=== PATIENT | male | born 1945 | race Two or more races ===

== ENCOUNTER 2022-06-13 18:54 | Inpatient (IN) | payer OTHER ==
[~2022-06-13] VITALS: Ht 167.6 cm; Wt 86.6 kg
--- NOTE | 2022-06-13 19:15 | NUR ---
TO ER BED 11. BIB NEIGHBOR C/O HIGH BLOOD PRESSURE 180's, NUMBNESS BLE, BLURRY VISION AND FELL TWICE TODAY. PT IS ALERT AND ORIENTED. RR EVEN AND NON LABORED. NO EXTREMITY DEFICITS NOTED. CONNECTED TO POX AND HEART MONITOR.
--- NOTE | 2022-06-13 19:31 | NUR ---
URINE COLLECTED AND SENT TO LAB
--- NOTE | 2022-06-13 20:15 | NUR ---
IV LINE ESTABLISHED, [id number]
--- NOTE | 2022-06-13 20:20 | NUR ---
BLOOD COLLECTED AND SENT TO LAB
[2022-06-13] MEDS ORDERED: hydrALAZINE HCL IV 20 MG VIAL ONE (20:28)
[2022-06-13] MEDS ORDERED: hydrALAZINE HCL IV 20 MG VIAL IV ONE (20:30)
[2022-06-13 20:49] LABS: CALCIUM, SERUM 8.5 mg/dL (8.5-10.1); CARBON DIOXIDE 23 mmol/L (21-32); CHLORIDE 112 mmol/L (98-107); CREATININE 4.6 mg/dL (0.6-1.3); GLUCOSE 135 mg/dL (74-106); SODIUM SERUM 138 mmol/L (136-145); UREA NITROGEN, BLOOD 44 mg/dL (7-18)
[2022-06-13 20:51] LABS: BASOPHILS # (AUTO) 0.3 K/uL (0.0-0.2); BASOPHILS % (AUTO) 3.2 % (0.0-2.0); EOSINOPHILS % (AUTO) 12.2 % (0.0-6.0); HEMATOCRIT 38 % (39-51); HEMOGLOBIN 12.4 g/dL (13.5-17.5); LYMPHOCYTES # (AUTO) 0.9 K/uL (0.8-4.8); LYMPHOCYTES % (AUTO) 9.5 % (20.0-44.0); MEAN CORPUSCULAR HGB CONC 32 g/dl (31.0-36.0); MEAN CORPUSCULAR VOLUME 91 fL (80-96); MONOCYTES # (AUTO) 0.8 K/uL (0.1-1.30); MONOCYTES % (AUTO) 8.5 % (2.0-12.0); NEUTROPHILS % (AUTO) 66.6 % (43.0-81.0); PLATELET COUNT (AUTO) 238 K/uL (150-450); RED BLOOD CELL COUNT(AUTO) 4.24 MIL/uL (4.5-6.0); WHITE BLOOD COUNT (AUTO) 9.1 K/uL (4.3-11.0)
[2022-06-13 21:09] LABS: POTASSIUM 6.2 mmol/L (3.5-5.1)
--- NOTE | 2022-06-13 21:20 | NUR ---
ELLIE Guerrier (DAUGHTER) [phone]
--- NOTE | 2022-06-13 22:19 | NUR ---
COVID SWAB DONE AND SENT TO LAB
[2022-06-13] MEDS ORDERED: FUROSEMIDE 20 MG/2 ML VIAL ONE (22:59)
[2022-06-13] MEDS ORDERED: SODIUM BICARBONATE SYR 50 MEQ/50 ML DISP.SYRIN IV ONE (23:00)
[2022-06-13] MEDS ORDERED: IV NS 0.9% 1,000 ML IV ONE (23:00)
[2022-06-13] MEDS ORDERED: CALCIUM CHLORIDE 1,000 MG/10 ML DISP.SYRIN IV ONE (23:00)
[2022-06-13] MEDS ORDERED: FUROSEMIDE 40 MG/4 ML VIAL IV ONE (23:00)
[2022-06-13] MEDS ORDERED: ALBUTEROL FS 2.5 MG/3 ML VIAL.NEB NEB ONE (23:00)
[2022-06-14] MEDS ORDERED: IV 1/2NS 1000 ML 1,000 ML IV PRN (01:30)
[2022-06-14] MEDS ORDERED: DEXTROSE 50%-WATER 50 ML DISP.SYRIN IV PRN (01:30)
[2022-06-14] MEDS ORDERED: ONDANSETRON HCL/PF 4 MG/2 ML VIAL IVP PRN (01:30)
[2022-06-14] MEDS ORDERED: ZOLPIDEM TARTRATE 5 MG TABLET PO PRN (01:30)
[2022-06-14] MEDS ORDERED: MAG HYDROX/AL HYDROX/SIMETH 30 ML UDC PO PRN (01:30)
[2022-06-14] MEDS ORDERED: Z GUARD REMEDY 4 OZ OINT TP PRN (01:30)
[2022-06-14] MEDS ORDERED: MAGNESIUM HYDROXIDE 30 ML UDC PO PRN (01:30)
--- NOTE | 2022-06-14 02:10 | NUR ---
PATIENT TRANSFERRED TO [facility]
--- NOTE | 2022-06-14 02:20 | NUR ---
RN NOTE RECEIVED 76 Y/O M PATIENT FROM ER, PT TRANSFERRED VIA ALENA, A/ORTEGA ITALIAN SPEAKING, ON RA TOLERATING WELL, IV ACCESS AT RAC #20. PT DX HYPERTENSIVE CRISIS, ADMISSION CARE RENDERED, SKIN ASSESSMENT DONE NO ISSUES NOTED, SAFETY MEASURES IN PLACED, BED IN LOWEST AND LOCKED POSITION, BED ALARM ON, CALL LIGHT WITHIN REACH AND INSTRUCTED TO CALL FOR ASSISTANCE, WILL CONTINUE TO MONITOR THROUGHOUT THE SHIFT.
[2022-06-14] MEDS: hydrALAZINE HCL IV 20 MG VIAL IV PRN ×3 (02:49→21:52)
[2022-06-14 04:00] VITALS: BP 159/70
--- NOTE | 2022-06-14 07:00 | NUR ---
RN CLOSING NOTE PATIENT REMAINS IN BED, A/OX4 DIVEHI SPEAKING, ON O2 VIA NC AT 2LPM TOLERATING WELL SATING 97%, NOT IN ANY S/SX OF RESPIRATORY DISTRESS, NO COMPLAINTS OF PAIN AT THIS TIME, IV ACCESS AT RAC #20 RUNNING 1/2 NS AT 90 ML/HR, KEPT PT DRY AND CLEAN, SAFETY MEASURES IN PLACED, BED IN LOWEST AND LOCKED POSITION, BED ALARM ON, CALL LIGHT WITHIN REACH AND INSTRUCTED TO CALL FOR ASSISTANCE, WILL ENDORSE TO AM SHIFT NURSE FOR CONTINUITY OF CARE.
[2022-06-14 07:19] LABS: CALCIUM, SERUM 8.9 mg/dL (8.5-10.1); CARBON DIOXIDE 20 mmol/L (21-32); CHLORIDE 113 mmol/L (98-107); CREATININE 4.5 mg/dL (0.6-1.3); GLUCOSE 135 mg/dL (74-106); POTASSIUM 4.9 mmol/L (3.5-5.1); SODIUM SERUM 141 mmol/L (136-145); UREA NITROGEN, BLOOD 41 mg/dL (7-18)
[2022-06-14] MEDS: BLOOD SUGAR DIAGNOSTIC 1 EACH STRIP VI SCH ×4 (07:40→21:48)
--- NOTE | 2022-06-14 07:50 | NUR ---
RN OPENING NOTE PATIENT REMAINS IN BED, A/OX4 BULGARIAN SPEAKING, ON O2 VIA NC AT 2LPM TOLERATING WELL SATING 98%, PT ON TELE MONITOR. NOT IN ANY S/SX OF RESPIRATORY DISTRESS, IV ACCESS AT RAC #20 RUNNING 1/2 NS AT 90 ML/HR,IV INTACT, PATENT AND FLUSHING WELL. ALL SAFETY MEASURES IN PLACED, BED IN LOWEST AND LOCKED POSITION, BED ALARM ON, CALL LIGHT WITHIN REACH AND BEDSIDE TABLE NEXT TO PATIENT
[2022-06-14 08:00] VITALS: BP 149/77
[2022-06-14 08:25] LABS: BASOPHILS # (AUTO) 0.1 K/uL (0.0-0.2); BASOPHILS % (AUTO) 0.8 % (0.0-2.0); EOSINOPHILS % (AUTO) 3.9 % (0.0-6.0); HEMATOCRIT 36 % (39-51); HEMOGLOBIN 11.8 g/dL (13.5-17.5); LYMPHOCYTES # (AUTO) 1.4 K/uL (0.8-4.8); LYMPHOCYTES % (AUTO) 15.3 % (20.0-44.0); MEAN CORPUSCULAR HGB CONC 32 g/dl (31.0-36.0); MEAN CORPUSCULAR VOLUME 91 fL (80-96); MONOCYTES % (AUTO) 10.3 % (2.0-12.0); NEUTROPHILS # (AUTO) 6.5 K/uL (1.8-8.9); NEUTROPHILS % (AUTO) 69.7 % (43.0-81.0); PLATELET COUNT (AUTO) 236 K/uL (150-450); RED BLOOD CELL COUNT(AUTO) 3.99 MIL/uL (4.5-6.0); WHITE BLOOD COUNT (AUTO) 9.3 K/uL (4.3-11.0)
[2022-06-14] MEDS ORDERED: GLIP5TAB13 PO (08:28)
[2022-06-14] MEDS ORDERED: MELO-107 PO (08:28)
[2022-06-14] MEDS ORDERED: FURO20TA4 PO (08:28)
[2022-06-14] MEDS ORDERED: ATOR10TA PO (08:28)
[2022-06-14] MEDS ORDERED: TAMS-12 PO (08:28)
[2022-06-14] MEDS ORDERED: METO-358 PO (08:28)
[2022-06-14] MEDS ORDERED: TIMO5DRO18 EACHEYE (08:28)
[2022-06-14] MEDS ORDERED: BRIM5DRO3 EACHEYE (08:28)
[2022-06-14] MEDS: ACETAMINOPHEN 325 MG TABLET PO PRN (11:51)
[2022-06-14] MEDS: INSULIN REGULAR, HUMAN 100 UNIT/ML 3 ML VIAL SQ PRN ×2 (11:59→17:15)
[2022-06-14 12:00] VITALS: BP 167/83
[2022-06-14 12:18] LABS: THYROID STIMULATING HORMONE 7.386 uIU/mL (0.358-3.74)
[2022-06-14 16:00] VITALS: BP 158/72
[2022-06-14] MEDS: TIMOLOL 0.5% SOLN OPHTH 5 ML BOTTLE EACHEYE SCH (16:29)
--- NOTE | 2022-06-14 19:20 | NUR ---
RN NOTE Received patient in bed, on semi alberto's, AAO x 4, in no acute distress, welsh speaking, family at bedside. Breathing unlabored, saturation at 96% on 2L via NC, SR on the monitor, HR is 82. IV line at LFA 20g patent and flushing well, no s/s of infection or infiltration with 1/2 NS infusing at 90 ml/hr. Patient is continent and able to use urinal. Safety measures in place, bed is locked and at lowest position, HOB elevated, call light within reach of patient. Will cont to monitor
--- NOTE | 2022-06-14 19:22 | NUR ---
RN CLOSING NOTE PATIENT REMAINS IN BED, A/OX4 KYRGYZ SPEAKING, ON O2 VIA NC AT 2LPM TOLERATING WELL SATING 98%, PT ON TELE MONITOR. NOT IN ANY S/SX OF RESPIRATORY DISTRESS,NO PAIN OR DISCOMFORT NOTED AT THIS TIME. IV ACCESS AT LEFT FOREARM #20 RUNNING 1/2 NS AT 90 ML/HR,IV INTACT, PATENT AND FLUSHING WELL. ALL SAFETY MEASURES IN PLACED, BED IN LOWEST AND LOCKED POSITION, BED ALARM ON, CALL LIGHT WITHIN REACH AND BEDSIDE TABLE NEXT TO PATIENT. ENDORSED TO CHURN DRILLER HELPER RN FOR CONUTIY OF CARE
[2022-06-14 21:30] VITALS: BP 180/72
[2022-06-14] MEDS: TAMSULOSIN 0.4 MG CAP.SR.24H PO SCH (21:42)
[2022-06-14] MEDS ORDERED: ATORVASTATIN 10 MG TABLET PO SCH (22:00)
[2022-06-14 22:17] LABS: BILIRUBIN,URINE NEGATIVE (NEGATIVE); COLOR,URINE YELLOW (YELLOW); LEUKOCYTE ESTERASE ,URINE NEGATIVE (NEGATIVE); NITRITE, URINE NEGATIVE (NEGATIVE); PROTEIN,URINE 3+ mg/dl (NEGATIVE); UGLUCOSE 2+ mg/dL (NEGATIVE); UROBILINOGEN,URINE 0.2 EU/dL (0.2)
[2022-06-14 22:19] LABS: BACTERIA,URINE None seen /HPF (None Seen); WBC,URINE 0-2 /HPF (0-3)
[2022-06-14 22:20] LABS: MUCUS,URINE Few /LPF (None Seen)
[2022-06-14 22:30] VITALS: BP 156/81
[2022-06-15] VITALS (7 sets, daily range): BP systolic 126–174; BP diastolic 60–98
[2022-06-15 05:56] LABS: BASOPHILS % (AUTO) 0.3 % (0.0-2.0); EOSINOPHILS % (AUTO) 5.6 % (0.0-6.0); HEMATOCRIT 34 % (39-51); HEMOGLOBIN 11.2 g/dL (13.5-17.5); LYMPHOCYTES # (AUTO) 2.5 K/uL (0.8-4.8); LYMPHOCYTES % (AUTO) 25.5 % (20.0-44.0); MEAN CORPUSCULAR HGB CONC 33 g/dl (31.0-36.0); MEAN CORPUSCULAR VOLUME 91 fL (80-96); MONOCYTES # (AUTO) 0.8 K/uL (0.1-1.30); MONOCYTES % (AUTO) 8.4 % (2.0-12.0); NEUTROPHILS # (AUTO) 5.9 K/uL (1.8-8.9); NEUTROPHILS % (AUTO) 60.2 % (43.0-81.0); PLATELET COUNT (AUTO) 227 K/uL (150-450); RED BLOOD CELL COUNT(AUTO) 3.73 MIL/uL (4.5-6.0); WHITE BLOOD COUNT (AUTO) 9.8 K/uL (4.3-11.0)
[2022-06-15 06:15] LABS: ALANINE AMINOTRANSFERASE 10 U/L (12-78); ALKALINE PHOSPHATASE 74 U/L (46-116); ASPARTATE AMINOTRANSFERASE 15 U/L (15-37); BILIRUBIN,TOTAL 0.2 mg/dL (0.2-1.0); CALCIUM, SERUM 8.4 mg/dL (8.5-10.1); CARBON DIOXIDE 20 mmol/L (21-32); CHLORIDE 113 mmol/L (98-107); CREATININE 4.3 mg/dL (0.6-1.3); GLUCOSE 126 mg/dL (74-106); PHOSPHORUS 4.2 mg/dL (2.5-4.9); POTASSIUM 4.7 mmol/L (3.5-5.1); SODIUM SERUM 140 mmol/L (136-145); TOTAL PROTEIN, SERUM 4.9 g/dL (6.4-8.2); UREA NITROGEN, BLOOD 42 mg/dL (7-18)
[2022-06-15 06:31] LABS: ALBUMIN 1.4 g/dL (3.4-5.0)
[2022-06-15] MEDS: BLOOD SUGAR DIAGNOSTIC 1 EACH STRIP VI SCH ×4 (07:33→21:37)
--- NOTE | 2022-06-15 07:40 | NUR ---
RN NOTE PT RECEIVED IN BED, RESTING, EYES CLOSED. PT ON 2L O2 NC WITH NO SIGNS OF LABORED BREATHING. BLOOD SUGAR 119 THIS AM, NO COVERAGE NEEDED. LEFT FA 20G IN PLACE RUNNING 1/2 NS AT 90ML/HR. PT A&OX4, PLEASANT, IN AGREEMENT WITH POC. BED LOCKED AND IN LOWEST POSITION, CALL LIGHT WITHIN REACH, 3 SIDE RAILS UP.
[2022-06-15 07:49] LABS: CHOLESTEROL 227 mg/dL (<200); HDL CHOLESTEROL 39 mg/dL (40-60); LDL 153 mg/dL (0-99); TRIGLYCERIDES 140 mg/dL (30-150)
[2022-06-15] MEDS: TIMOLOL 0.5% SOLN OPHTH 5 ML BOTTLE EACHEYE SCH ×2 (08:44→16:21)
[2022-06-15] MEDS ORDERED: METOPROLOL SUCCINATE 50 MG TAB.SR.24H PO SCH (09:00)
[2022-06-15] MEDS: hydrALAZINE HCL 50 MG TABLET PO SCH ×3 (09:42→16:22)
[2022-06-15] MEDS: METOPROLOL SUCCINATE 50 MG TAB.SR.24H PO SCH (09:43)
[2022-06-15] MEDS ORDERED: IV 1/2NS 1000 ML 1,000 ML IV PRN (09:54)
[2022-06-15] MEDS: NITROGLYCERIN 30 GM TUBE TP SCH ×2 (10:22→21:22)
[2022-06-15] MEDS: IV NS 0.9% 1,000 ML IV SCH (10:35)
[2022-06-15] MEDS: ALBUMIN 25% 25 GM in PREMIX 1 EA IV SCH (11:22)
[2022-06-15] MEDS: *INSULIN REGULAR(HUMULIN R)HUM 100 UNIT/ML VIAL SQ PRN (11:35)
[2022-06-15] MEDS: BRIMONIDINE TARTRATE OPHT SOLN 5 ML BOTTLE EACHEYE SCH ×2 (12:29→16:18)
[2022-06-15] MEDS: ISOSORBIDE DINITRATE (20MG) 20 MG TABLET PO SCH ×2 (12:29→16:21)
--- NOTE | 2022-06-15 18:39 | NUR ---
CLOSING NOTE PATIENT REMAINS IN BED, A/OX4 MAORI SPEAKING, ON O2 VIA NC AT 2LPM TOLERATING WELL SATING 98%, PT ON TELE MONITOR. NOT IN ANY S/SX OF RESPIRATORY DISTRESS,NO PAIN OR DISCOMFORT NOTED AT THIS TIME. IV ACCESS AT LEFT FOREARM #20 RUNNING 1/2 NS AT 90 ML/HR,IV INTACT, PATENT AND FLUSHING WELL. ALL SAFETY MEASURES IN PLACED, BED IN LOWEST AND LOCKED POSITION, BED ALARM ON, CALL LIGHT WITHIN REACH
--- NOTE | 2022-06-15 19:15 | NUR ---
RN NOTE Received patient in bed, on semi alberto's, AAO x 4, in no acute distress, latvian speaking, family at bedside. Breathing unlabored, saturation at 98 on 2L via NC, SR on the monitor, HR is 71. IV line at LFA 20g patent and flushing well, no s/s of infection or infiltration with 1/2 NS infusing at 50 ml/hr. Patient is continent and able to use urinal. Safety measures in place, bed is locked and at lowest position, HOB elevated, call light within reach of patient. Will cont to monitor
[2022-06-15] MEDS: TAMSULOSIN 0.4 MG CAP.SR.24H PO SCH (21:23)
[2022-06-15] MEDS: ATORVASTATIN 40 MG TABLET PO SCH (21:23)
[2022-06-15] MEDS ORDERED: ALBUMIN 25% 100 ML IV ONE (23:57)
[2022-06-16] VITALS: BP 117/72
[2022-06-16] MEDS: ALBUMIN 25% 25 GM in PREMIX 1 EA IV SCH ×2
[2022-06-16 04:00] VITALS: BP 150/66
[2022-06-16] MEDS: IV NS 0.9% 1,000 ML IV SCH (06:17)
[2022-06-16 06:38] LABS: BASOPHILS % (AUTO) 0.4 % (0.0-2.0); HEMATOCRIT 30 % (39-51); HEMOGLOBIN 9.7 g/dL (13.5-17.5); LYMPHOCYTES % (AUTO) 20.7 % (20.0-44.0); MEAN CORPUSCULAR HGB CONC 32 g/dl (31.0-36.0); MEAN CORPUSCULAR VOLUME 91 fL (80-96); MONOCYTES # (AUTO) 0.8 K/uL (0.1-1.30); MONOCYTES % (AUTO) 8.5 % (2.0-12.0); NEUTROPHILS # (AUTO) 6.3 K/uL (1.8-8.9); NEUTROPHILS % (AUTO) 66.4 % (43.0-81.0); PLATELET COUNT (AUTO) 195 K/uL (150-450); RED BLOOD CELL COUNT(AUTO) 3.28 MIL/uL (4.5-6.0); WHITE BLOOD COUNT (AUTO) 9.4 K/uL (4.3-11.0)
[2022-06-16 07:00] LABS: ALANINE AMINOTRANSFERASE 7 U/L (12-78); ALBUMIN 2.1 g/dL (3.4-5.0); ALKALINE PHOSPHATASE 63 U/L (46-116); ASPARTATE AMINOTRANSFERASE 16 U/L (15-37); BILIRUBIN,TOTAL 0.3 mg/dL (0.2-1.0); CALCIUM, SERUM 8.3 mg/dL (8.5-10.1); CARBON DIOXIDE 16 mmol/L (21-32); CHLORIDE 113 mmol/L (98-107); CREATININE 4.3 mg/dL (0.6-1.3); GLUCOSE 102 mg/dL (74-106); MAGNESIUM 2.1 mg/dL (1.8-2.4); PHOSPHORUS 3.8 mg/dL (2.5-4.9); POTASSIUM 4.5 mmol/L (3.5-5.1); SODIUM SERUM 138 mmol/L (136-145); TOTAL PROTEIN, SERUM 5.1 g/dL (6.4-8.2); UREA NITROGEN, BLOOD 39 mg/dL (7-18)
[2022-06-16] MEDS: BLOOD SUGAR DIAGNOSTIC 1 EACH STRIP VI SCH ×4 (07:33→22:24)
[2022-06-16 08:00] VITALS: BP 179/75
[2022-06-16] MEDS: METOPROLOL SUCCINATE 50 MG TAB.SR.24H PO SCH (08:47)
[2022-06-16] MEDS: ISOSORBIDE DINITRATE (20MG) 20 MG TABLET PO SCH ×2 (08:47→16:03)
[2022-06-16] MEDS: NITROGLYCERIN 30 GM TUBE TP SCH (08:47)
[2022-06-16] MEDS: hydrALAZINE HCL 50 MG TABLET PO SCH ×3 (08:47→16:04)
[2022-06-16] MEDS: TIMOLOL 0.5% SOLN OPHTH 5 ML BOTTLE EACHEYE SCH ×2 (08:52→16:09)
[2022-06-16] MEDS: BRIMONIDINE TARTRATE OPHT SOLN 5 ML BOTTLE EACHEYE SCH ×3 (08:53→16:09)
[2022-06-16] MEDS: NIFEdipine XL (30MG) 30 MG TAB PO SCH (09:48)
[2022-06-16] MEDS: SODIUM BICARBONATE 650 MG TABLET PO SCH ×2 (11:57→17:12)
[2022-06-16 12:00] VITALS: BP 173/84
[2022-06-16] MEDS: INSULIN REGULAR, HUMAN 100 UNIT/ML 3 ML VIAL SQ PRN (12:02)
[2022-06-16 16:00] VITALS: BP 177/84
[2022-06-16] MEDS: hydrALAZINE HCL IV 20 MG VIAL IV PRN (16:04)
--- NOTE | 2022-06-16 16:15 | NUR ---
RN NOTE BP 177/84 AFTER ALL SCHEDULED BP MEDS WERE GIVEN TODAY. HYDRALAZINE IV PRN GIVEN.
--- NOTE | 2022-06-16 19:23 | NUR ---
RN Opening Notes Received pt sitting on bedside, eating dinner. AOx4, gibraltarian speaking and able to make needs known. On NC 2LPM and tolerating well. No SOB noted. No s/sx of respiratory distress noted. Tele monitor detects sinus rhythm. IV access in SAMEERA midline and LFA #22G running 1/2 NS @ 50 mL/hr. Safety precautions in place: bed in lowest, locked position, siderails upX2, and brakes on. Table and call light within reach. All needs met at this time.
[2022-06-16 20:00] VITALS: BP 168/84
[2022-06-16] MEDS: TAMSULOSIN 0.4 MG CAP.SR.24H PO SCH (22:04)
[2022-06-16] MEDS: ATORVASTATIN 40 MG TABLET PO SCH (22:04)
[2022-06-16] MEDS: ACETAMINOPHEN 325 MG TABLET PO PRN (22:04)
--- NOTE | 2022-06-16 22:04 | NUR ---
RN NOTES Administered tylenol for fever of 100.2.
[2022-06-16] MEDS: *INSULIN REGULAR(HUMULIN R)HUM 100 UNIT/ML VIAL SQ PRN (22:30)
[2022-06-17] VITALS (8 sets, daily range): BP systolic 121–157; BP diastolic 44–86
[2022-06-17] MEDS: SODIUM BICARBONATE 650 MG TABLET PO SCH ×5 (00:16→23:53)
[2022-06-17] MEDS: IV NS 0.9% 1,000 ML IV SCH ×2 (02:35→21:36)
--- NOTE | 2022-06-17 06:59 | NUR ---
RN Closing Notes Pt in bed, asleep, awakens to verbal stimuli. AOx4, romanian speaking and able to make needs known. On NC 2LPM and tolerating well. No SOB noted. No s/sx of respiratory distress noted. Tele monitor detects sinus rhythm. IV access in SAMEERA midline and R hand #22G running 1/2 NS @ 50 mL/hr. All orders carried out. All needs met. Pt kept clean and dry. Safety precautions in place: bed in lowest, locked position, siderails upX2, and brakes on. Table and call light within reach. Will endorse to oncoming shift for MARIA FERNANDA
--- NOTE | 2022-06-17 07:33 | NUR ---
radio television announcer notes Pt in bed, asleep, awakens to verbal stimuli. AOx4, fijian speaking and able to make needs known. On NC 2LPM and tolerating well. No SOB noted. No s/sx of respiratory distress noted. Tele monitor detects sinus rhythm with bbb hr 73 . IV access R hand #22G running 1/2 NS @ 50 mL/hr. . All needs met. Pt kept clean and dry. Safety precautions in place: bed in lowest, locked position, siderails upX2, a call light within reach. will monitor
[2022-06-17] MEDS: hydrALAZINE HCL 50 MG TABLET PO SCH ×3 (08:04→16:28)
[2022-06-17] MEDS: METOPROLOL SUCCINATE 50 MG TAB.SR.24H PO SCH (08:04)
[2022-06-17] MEDS: NIFEdipine XL (30MG) 30 MG TAB PO SCH ×2 (08:04→16:29)
[2022-06-17] MEDS: ISOSORBIDE DINITRATE (20MG) 20 MG TABLET PO SCH ×2 (08:08→16:27)
[2022-06-17] MEDS: BRIMONIDINE TARTRATE OPHT SOLN 5 ML BOTTLE EACHEYE SCH ×3 (08:12→16:25)
[2022-06-17] MEDS: TIMOLOL 0.5% SOLN OPHTH 5 ML BOTTLE EACHEYE SCH ×2 (08:12→16:25)
[2022-06-17] MEDS: ACETAMINOPHEN 325 MG TABLET PO PRN (08:16)
[2022-06-17] MEDS: BLOOD SUGAR DIAGNOSTIC 1 EACH STRIP VI SCH ×4 (08:19→21:36)
--- NOTE | 2022-06-17 09:00 | NUR ---
MOVABLE BULKHEAD INSTALLER NOTE C\O PAIN LT LEG TYLENOL PO GIVEN ORDERED WILL INFORM TO
[2022-06-17 10:11] LABS: BASOPHILS % (AUTO) 0.3 % (0.0-2.0); EOSINOPHILS % (AUTO) 0.9 % (0.0-6.0); HEMATOCRIT 29 % (39-51); HEMOGLOBIN 9.2 g/dL (13.5-17.5); LYMPHOCYTES # (AUTO) 1.3 K/uL (0.8-4.8); LYMPHOCYTES % (AUTO) 14.5 % (20.0-44.0); MEAN CORPUSCULAR HGB CONC 32 g/dl (31.0-36.0); MEAN CORPUSCULAR VOLUME 91 fL (80-96); MONOCYTES # (AUTO) 1.1 K/uL (0.1-1.30); MONOCYTES % (AUTO) 12.1 % (2.0-12.0); NEUTROPHILS # (AUTO) 6.4 K/uL (1.8-8.9); NEUTROPHILS % (AUTO) 72.2 % (43.0-81.0); PLATELET COUNT (AUTO) 186 K/uL (150-450); RED BLOOD CELL COUNT(AUTO) 3.13 MIL/uL (4.5-6.0); WHITE BLOOD COUNT (AUTO) 8.9 K/uL (4.3-11.0)
--- NOTE | 2022-06-17 10:17 | NUR ---
SALESPERSON FLORIST SUPPLIES NOTE REPORTED TO DR GEIGER THAT PATIENT C\O PAIN LT LEG TYLENOL,WAS GIVEN ALSO REPORTED THAT BOTH UPPER EYE LIDS SWOLLEN, NO NEW ORDER AT THIS TIME
[2022-06-17 10:48] LABS: CALCIUM, SERUM 7.9 mg/dL (8.5-10.1); CARBON DIOXIDE 21 mmol/L (21-32); CHLORIDE 109 mmol/L (98-107); CREATININE 4.3 mg/dL (0.6-1.3); GLUCOSE 230 mg/dL (74-106); POTASSIUM 4.1 mmol/L (3.5-5.1); SODIUM SERUM 137 mmol/L (136-145); UREA NITROGEN, BLOOD 42 mg/dL (7-18)
[2022-06-17 10:53] LABS: ALANINE AMINOTRANSFERASE 10 U/L (12-78); ALBUMIN 1.7 g/dL (3.4-5.0); ALKALINE PHOSPHATASE 58 U/L (46-116); ASPARTATE AMINOTRANSFERASE 14 U/L (15-37); BILIRUBIN,TOTAL 0.2 mg/dL (0.2-1.0); TOTAL PROTEIN, SERUM 4.7 g/dL (6.4-8.2)
[2022-06-17] MEDS: INSULIN REGULAR, HUMAN 100 UNIT/ML 3 ML VIAL SQ PRN (12:01)
--- NOTE | 2022-06-17 12:47 | NUR ---
GALLERY DIRECTOR NOTE FAMILY AT BEDSIDE ,ALL NEEDS ATTENDED, HAVING LUNCH
--- NOTE | 2022-06-17 15:06 | NUR ---
BUSINESS LAW INSTRUCTOR NOTE PT AT BEDSIDE PT EVAL DONE BUT PATINE C\O PAIN LT ANKLE AND LT FOOT CALLED TO DR GEIGER WITH ORDER X SHEA ANKLE AND FOOT, WILL F\U
--- NOTE | 2022-06-17 17:30 | NUR ---
rn telephonic note family at bedside ,having dinner , on tele monitor sr hr 65, using urinal well with yellow color urine, keep clean dry , all needs attended, safety measure implemented, lt hand iv hl intact and flushed well ,on ivf as ordered, bed in lowest and locked position, will cont to monitor closely
--- NOTE | 2022-06-17 19:30 | NUR ---
MANUFACTURING TECHNOLOGY PROFESSOR OPENING NOTE RECEIVED PATIENT IN BED, A/OX4 INDONESIAN SPEAKING, ON O2 VIA NC AT 2LPM TOLERATING WELL SATING 98%, PT ON TELE MONITOR. NOT IN ANY S/SX OF RESPIRATORY DISTRESS, NO PAIN OR DISCOMFORT NOTED AT THIS TIME. IV ACCESS AT LEFT FOREARM #20 RUNNING NS AT 50 ML/HR, INTACT, PATENT AND FLUSHING WELL. ALL SAFETY MEASURES IN PLACED, BED IN LOWEST AND LOCKED POSITION, BED ALARM ON, CALL LIGHT WITHIN REACH AND BEDSIDE TABLE NEXT TO PATIENT. DAUGHTER AT BEDSIDE, WILL CONTINUE TO MONITOR THROUGHOUT THE SHIFT.
[2022-06-17] MEDS: TAMSULOSIN 0.4 MG CAP.SR.24H PO SCH (21:35)
[2022-06-17] MEDS: ATORVASTATIN 40 MG TABLET PO SCH (21:35)
[2022-06-17] MEDS: *INSULIN REGULAR(HUMULIN R)HUM 100 UNIT/ML VIAL SQ PRN (21:46)
--- NOTE | 2022-06-17 22:00 | NUR ---
RN NOTE BS CHECKED AT 177 MG/DL, 3 UNITS OF INSULIN GIVEN PER SLIDING SCALE.
[2022-06-18] VITALS (9 sets, daily range): BP systolic 101–136; BP diastolic 57–72
[2022-06-18] MEDS: ACETAMINOPHEN 325 MG TABLET PO PRN ×2 (05:15→13:49)
[2022-06-18] MEDS: SODIUM BICARBONATE 650 MG TABLET PO SCH ×3 (05:15→17:07)
--- NOTE | 2022-06-18 05:15 | NUR ---
RN NOTE NOTED PT WITH LOW GRADE FEVER AT 100.1, TYLENOL GIVEN PRN ORDER. WILL CONT TO MONITOR.
--- NOTE | 2022-06-18 06:48 | NUR ---
RN CLOSING NOTE PATIENT REMAINS IN BED, A/OX4 FAROESE SPEAKING, ON O2 VIA NC AT 2LPM TOLERATING WELL SATING 97%, NOT IN ANY S/SX OF RESPIRATORY DISTRESS, IV ACCESS AT RAC #20 RUNNING NS AT 50 ML/HR, KEPT PT DRY AND CLEAN, ALL DUE MEDS GIVEN, SAFETY MEASURES IN PLACED, BED IN LOWEST AND LOCKED POSITION, BED ALARM ON, CALL LIGHT WITHIN REACH AND INSTRUCTED TO CALL FOR ASSISTANCE, WILL ENDORSE TO AM SHIFT NURSE FOR CONTINUITY OF CARE.
--- NOTE | 2022-06-18 07:20 | NUR ---
CONCRETE STONE FINISHING SUPERVISOR OPENING NOTES: RECEIVED PATIENT IN BED ASLEEP BUT EASILY AROUSES TO VOICE AND TACTILE STIMULI. NO RESPIRATORY DISTRESS NOTED, BREATHING EVEN AND UNLABORED, ON OXYGEN @ 2L/MIN VIA N/C WITH OXYGEN SATURATION OF 96%. ON SR WITH HR OF 89 PER TELE MONITOR. IV ACCESS ON LEFT HAND INFUSING WITH NS @ 50 ML/HR, SITE PATENT, INTACT WITH NO S/S INFILTRATION NOTED. NO C/O PAIN OR DISCOMFORT AT THIS TIME. ALL SAFETY MEASURES IN PLACE. BED LOCKED AND IN LOWEST POSITION. WILL CONTINUE TO MONITOR PATIENT THROUGHOUT SHIFT.
[2022-06-18 07:23] LABS: BASOPHILS % (AUTO) 0.3 % (0.0-2.0); EOSINOPHILS % (AUTO) 1.5 % (0.0-6.0); HEMATOCRIT 29 % (39-51); HEMOGLOBIN 9.6 g/dL (13.5-17.5); LYMPHOCYTES # (AUTO) 1.8 K/uL (0.8-4.8); LYMPHOCYTES % (AUTO) 18.6 % (20.0-44.0); MEAN CORPUSCULAR HGB CONC 33 g/dl (31.0-36.0); MEAN CORPUSCULAR VOLUME 90 fL (80-96); MONOCYTES # (AUTO) 1.2 K/uL (0.1-1.30); MONOCYTES % (AUTO) 12.4 % (2.0-12.0); NEUTROPHILS # (AUTO) 6.4 K/uL (1.8-8.9); NEUTROPHILS % (AUTO) 67.2 % (43.0-81.0); PLATELET COUNT (AUTO) 195 K/uL (150-450); RED BLOOD CELL COUNT(AUTO) 3.22 MIL/uL (4.5-6.0); WHITE BLOOD COUNT (AUTO) 9.6 K/uL (4.3-11.0)
[2022-06-18] MEDS: BLOOD SUGAR DIAGNOSTIC 1 EACH STRIP VI SCH ×4 (07:58→21:24)
[2022-06-18 08:15] LABS: CALCIUM, SERUM 8.2 mg/dL (8.5-10.1); CARBON DIOXIDE 20 mmol/L (21-32); CHLORIDE 108 mmol/L (98-107); CREATININE 4.5 mg/dL (0.6-1.3); GLUCOSE 110 mg/dL (74-106); SODIUM SERUM 136 mmol/L (136-145); UREA NITROGEN, BLOOD 44 mg/dL (7-18)
[2022-06-18 08:21] LABS: ALANINE AMINOTRANSFERASE 11 U/L (12-78); ALBUMIN 1.7 g/dL (3.4-5.0); ALKALINE PHOSPHATASE 66 U/L (46-116); ASPARTATE AMINOTRANSFERASE 16 U/L (15-37); BILIRUBIN,TOTAL 0.2 mg/dL (0.2-1.0)
[2022-06-18] MEDS: hydrALAZINE HCL 50 MG TABLET PO SCH ×3 (08:32→17:08)
[2022-06-18] MEDS: METOPROLOL SUCCINATE 50 MG TAB.SR.24H PO SCH (08:32)
[2022-06-18] MEDS: ISOSORBIDE DINITRATE (20MG) 20 MG TABLET PO SCH ×2 (08:32→17:08)
[2022-06-18] MEDS: NIFEdipine XL (30MG) 30 MG TAB PO SCH ×2 (08:33→17:07)
[2022-06-18] MEDS: BRIMONIDINE TARTRATE OPHT SOLN 5 ML BOTTLE EACHEYE SCH ×3 (08:34→17:09)
[2022-06-18] MEDS: TIMOLOL 0.5% SOLN OPHTH 5 ML BOTTLE EACHEYE SCH ×2 (08:34→17:09)
[2022-06-18] MEDS: INSULIN REGULAR, HUMAN 100 UNIT/ML 3 ML VIAL SQ PRN ×2 (11:51→17:21)
--- NOTE | 2022-06-18 12:35 | NUR ---
EDER WATER PROOFER NOTIFIED OF OXYGEN SATURATION OF 94% IN RA Addendum: 06/18/22 at 1236 by BILL SWENSON RN WRONG DOCUMENTATION, PLEASE DISREGARD
--- NOTE | 2022-06-18 13:53 | NUR ---
PER PHYSICAL THERAPIST, THEY TRIED TO AMBULATE THE PATIENT BUT PATIENT UNABLE TO PUT A PRESSURE ON HIS LEFT FOOT AND CANNOT WALK, MEDICATED PRN FOR PAIN ORDERED. DR. HERNANDES NOTIFIED WITH NO FURTHER ORDERS AT THIS TIME
--- NOTE | 2022-06-18 16:35 | NUR ---
PATIENT FAMILY REPORTED THAT PATIENT C/O LIPS AND TONGUE BEING SWOLLEN AND UNABLE TO SPEAK WELL WITH WITH SPEECH BEING SIGHTLY SLURRED. ASSESSED PATIENT AND NOTED WITH NO FACIAL ASYMMETRY, NO SEVERE SWELLING NOTED ON LIPS AND TONGUE. NO C/O DIFFICULTY BREATHING. PATIENT NOTED WITH GOOD GANG DRILL PRESS OPERATOR ON BILATERAL HANDS AND ABLE TO RAISE BOTH LEGS. BP 124/68, PULSE 65. DR LARRY CONTACTED WITH AN ORDER FOR STAT CT. ORDER NOTED AND CARRIED OUT.
[2022-06-18] MEDS: IV NS 0.9% 1,000 ML IV SCH (17:42)
--- NOTE | 2022-06-18 18:57 | NUR ---
PROJECT HIRE CLOSING NOTES: PATIENT IN BED AWAKE, ALERT, ORIENTED X 4 WITH VISITORS AT BEDSIDE. NO RESPIRATORY DISTRESS NOTED AT THIS TIME, BREATHING EVEN AND UNLABORED, ON OXYGEN @ 2L/MIN VIA N/C WITH OXYGEN SATURATION OF 96%. ON SR WITH HR OF 65 PER TELE MONITOR. PATIENT WAS ABLE TO SPEAK CLEARLY, NO DIFFICULTY SWALLOWING, NO SWELLING NOTED ON LIPS AND TONGUE. IV ACCESS INTACT ON LEFT HAND INFUSING WITH NS @ 50 ML/HR, SITE WITH NO S/S INFILTRATION NOTED. NO C/O PAIN OR DISCOMFORT NOTED THE ENTIRE SHIFT. ALL SAFETY MEASURES IMPLEMENTED. BED LOCKED AND IN LOWEST POSITION. ALL NEEDS MET AND ANTICIPATED. WILL ENDORSE TO INCOMING NURSE FOR CONTINUITY OF CARE
--- NOTE | 2022-06-18 19:25 | NUR ---
SPOKE WITH DAUGHTER STACIA AND UPDATED HER OF THE PATIENT'S CONDITION DURING THE SHIFT. ALSO INFORMED OF CT SCAN DONE EARLIER AND RESULT AND FOR HER TO ASK THE DOCTOR FOR FURTHER EXPLANATIONS IF SHE HAS ANY OTHER QUESTIONS OR CONCERNS IN REGARDS TO THE TREATMENT PLAN.
[2022-06-18] MEDS: ATORVASTATIN 40 MG TABLET PO SCH (21:20)
[2022-06-18] MEDS: TAMSULOSIN 0.4 MG CAP.SR.24H PO SCH (21:20)
[2022-06-18] MEDS: *INSULIN REGULAR(HUMULIN R)HUM 100 UNIT/ML VIAL SQ PRN (21:26)
[2022-06-19] VITALS (7 sets, daily range): BP systolic 111–115; BP diastolic 53–62
--- NOTE | 2022-06-19 00:08 | NUR ---
INFORMED SOLE MORALES THAT PT IS C/O SOB/ UNABLE TO BREATHE, BUT PATIENT STATED IS MORE LIKE CONGESTION, WITH STUFFY NOSE THAT DOESN'T LET HER TO BREATHE, O2 NOTED 89 AT 5LMP, PLACED PATIENT IN SIMPLE MASK AT 8LPM, PATIENT O2 INCREASED TO 97%, AND PATIENT STATED THAT HE IS ABLE TO BREATHE BETTER, SOLE REPLIED WITH ORDER FOR CHEST X-RAYS, ORDER NOTED AND CARRIED OUT.
[2022-06-19] MEDS: SODIUM BICARBONATE 650 MG TABLET PO SCH ×5 (00:34→23:04)
--- NOTE | 2022-06-19 03:37 | NUR ---
RELAY RESULTS FOR CXR TO SOLE MORALES, AND PER HER TO STOP THE FLUIDS AND FOLLOW UP WITH DINKEY ENGINE FIRER IN AM, PT CONTINUE IN SIMPLE MASK AT 7LMP WITH O2 >94%, PT STATED FELL BETTER WITH SIMPLE MASK, HE IS MORE ABLE TO BREATHE, INFORMED SOLE THAT PER PATIENT IS MORE LIKE WHEN CONGESTED WITH STUFFY NOSE, UNABLE TO BREATHE, NO FURTHER ORDERS RECEIVED FROM SOLE
--- NOTE | 2022-06-19 03:37 | NUR ---
Stop iv fluids per Paulina Dover and follow up in am with education adviser.
--- NOTE | 2022-06-19 06:55 | NUR ---
END OF SHIFT, PT IN BED, AWAKE A/O X3 ABLE TO VERBALIZE NEEDS AND CONCERNS, AT SIMPLE MASK 7LPM AT T THIS TIME DUE TO DESATURATION CARGO BRACER, O2 SAT LEVEL >95%, NO SOB/ ACUTE DISTRESS NOTED, NSR IN TELE MONITOR, LEFT HAND 18G, PATENT AND INTACT, IV FLUIDS HELD BY CAM MORALES, AFTER RESULTS OF CXR, SIDE RAILS UP X2, CALL LIGHT WITHIN REACH, WILL ENDORSE CONTINUITY OF CARE TO ONCOMING NURSE.
--- NOTE | 2022-06-19 07:15 | NUR ---
JOURNEYMAN LEVEL ACOUSTIC ANALYST CLOSING NOTES: RECEIVED PATIENT IN BED AWAKE, ALERT, ORIENTED X 3 NO RESPIRATORY DISTRESS NOTED AT THIS TIME, BREATHING EVEN AND UNLABORED, ON OXYGEN @ 7L/MIN VIA N/C WITH OXYGEN SATURATION OF 99%. ON SR WITH HR OF 70 PER TELE MONITOR. IV ACCESS INTACT ON LEFT HAND, PATENT, FLUSHES WELL, SITE WITH NO S/S INFILTRATION NOTED. NO C/O PAIN OR DISCOMFORT NOTED AT THIS TIME. ALL SAFETY MEASURES IN PLACE. BED LOCKED AND IN LOWEST POSITION WITH BED ALARM. CALL LIGHT WITHIN REACH. WILL ENDORSE TO NEXT SHIFT NURSE FOR CONTINUITY OF CARE. Addendum: 06/19/22 at 1606 by BILL SWENSON RN JOURNEYMAN LEVEL ACOUSTIC ANALYST OPENING NOTES:
[2022-06-19 07:31] LABS: BASOPHILS % (AUTO) 0.3 % (0.0-2.0); EOSINOPHILS % (AUTO) 2.3 % (0.0-6.0); HEMATOCRIT 31 % (39-51); LYMPHOCYTES # (AUTO) 1.6 K/uL (0.8-4.8); LYMPHOCYTES % (AUTO) 18.5 % (20.0-44.0); MEAN CORPUSCULAR HGB CONC 32 g/dl (31.0-36.0); MEAN CORPUSCULAR VOLUME 91 fL (80-96); MONOCYTES # (AUTO) 0.9 K/uL (0.1-1.30); MONOCYTES % (AUTO) 11.1 % (2.0-12.0); NEUTROPHILS # (AUTO) 5.7 K/uL (1.8-8.9); NEUTROPHILS % (AUTO) 67.8 % (43.0-81.0); PLATELET COUNT (AUTO) 213 K/uL (150-450); WHITE BLOOD COUNT (AUTO) 8.4 K/uL (4.3-11.0)
[2022-06-19] MEDS: BLOOD SUGAR DIAGNOSTIC 1 EACH STRIP VI SCH ×4 (07:55→21:43)
[2022-06-19 07:56] LABS: CALCIUM, SERUM 8.4 mg/dL (8.5-10.1); CARBON DIOXIDE 20 mmol/L (21-32); CHLORIDE 106 mmol/L (98-107); CREATININE 5.2 mg/dL (0.6-1.3); GLUCOSE 134 mg/dL (74-106); POTASSIUM 4.4 mmol/L (3.5-5.1); SODIUM SERUM 135 mmol/L (136-145); UREA NITROGEN, BLOOD 52 mg/dL (7-18)
[2022-06-19 08:02] LABS: ALANINE AMINOTRANSFERASE 14 U/L (12-78); ALBUMIN 1.7 g/dL (3.4-5.0); ALKALINE PHOSPHATASE 69 U/L (46-116); ASPARTATE AMINOTRANSFERASE 15 U/L (15-37); BILIRUBIN,TOTAL 0.2 mg/dL (0.2-1.0); TOTAL PROTEIN, SERUM 5.4 g/dL (6.4-8.2)
[2022-06-19] MEDS: ISOSORBIDE DINITRATE (20MG) 20 MG TABLET PO SCH ×2 (08:55→17:00)
[2022-06-19] MEDS: NIFEdipine XL (30MG) 30 MG TAB PO SCH ×2 (08:56→17:00)
[2022-06-19] MEDS: METOPROLOL SUCCINATE 50 MG TAB.SR.24H PO SCH (08:56)
[2022-06-19] MEDS: hydrALAZINE HCL 50 MG TABLET PO SCH ×3 (09:00→17:00)
[2022-06-19] MEDS: TIMOLOL 0.5% SOLN OPHTH 5 ML BOTTLE EACHEYE SCH ×2 (09:36→17:15)
[2022-06-19] MEDS: BRIMONIDINE TARTRATE OPHT SOLN 5 ML BOTTLE EACHEYE SCH ×3 (09:36→17:15)
--- NOTE | 2022-06-19 09:46 | NUR ---
PATIENT WAS PICKED UP FOR CT SCAN, PATIENT LEFT VIA GURNEY IN NO ACUTE DISTRESS NOTED. DR. LARRY CAME BY AND INFORMED REGARDING PATENT'S C/O DIZZINESS WITH ADDITIONAL DIAGNOSTIC TESTS FOR THE PATIENT. PATIENT AND FAMILY INFORMED.
--- NOTE | 2022-06-19 10:01 | NUR ---
PATIENT CAME BACK FROM HIS CT SCAN IN NO ACUTE DISTRESS
[2022-06-19] MEDS ORDERED: ALBUTEROL FS 2.5 MG/0.5 ML VIAL.NEB NEB PRN (10:30)
--- NOTE | 2022-06-19 10:50 | NUR ---
PATIENT LEFT FOR MRI. PATIENT LEFT IN NON ACUTE DISTRESS
--- NOTE | 2022-06-19 11:34 | NUR ---
PATIENT CAME BACK FROM MRI AND PLACED ON OXYGEN @ 4L/MIN, OXYGEN SATURATION IS 98%. NO SOB NOTED, BREATHING EVEN AND UNLABORED.
[2022-06-19] MEDS ORDERED: IPRATROPIUM/ALBUTEROL INHALER IH SCH (12:00)
[2022-06-19] MEDS: CEFEPIME 1 GM in IV D5W 50 ML IV SCH ×2 (12:07→23:04)
[2022-06-19] MEDS: INSULIN REGULAR, HUMAN 100 UNIT/ML 3 ML VIAL SQ PRN ×2 (12:08→17:14)
[2022-06-19] MEDS ORDERED: VANCOMYCIN 1.25 GM in IV D5W 250 ML IV SCH (13:00)
[2022-06-19] MEDS: ALBUTEROL FS 2.5 MG/3 ML VIAL.NEB NEB SCH ×2 (13:30→19:32)
[2022-06-19] MEDS: IPRATROPIUM NEB FS 0.5 MG/2.5 ML AMPUL.NEB NEB SCH ×3 (13:30→19:32)
--- NOTE | 2022-06-19 14:06 | NUR ---
CT RESULTS OF CHEST,NECK AND MRI RESULTS RELAYED TO DR. JONES.
[2022-06-19 14:54] LABS: ABG BASE EXCESS -6.5 mmol/L; ABG OXYGEN SATURATION 94.5 % (92.0-98.5); ABG PCO2 33.1 mmHg (35.0-45.0); ABG PH 7.356 (7.350-7.450); ABG PO2 74.1 mmHg (75.0-100.0); AaDO2 144.2 mmHg; COHb 0.3 % (0.5-1.5); MetHb 0.3 % (0.0-1.5); O2Hb 93.9 % (94.0-97.0); SITE, ABG Right Radial; VENT MODE, BG 4 LPM NC
--- NOTE | 2022-06-19 15:01 | NUR ---
ABG WAS DONE ON THE PATIENT
--- NOTE | 2022-06-19 15:02 | NUR ---
TX not given. Not aware of order Will begin next scheduled tx
--- NOTE | 2022-06-19 15:05 | NUR ---
PATIENT FOUND LYING ON THE FLOOR ON THE LEFT SIDED POSITION. PATIENT ALERT, ORIENTED X 2 AND STATED THAT " I GOT OUT OF THE BED AND I WAS TRYING TO GO TO THE BATHROOM" BODY CHECK DONE, PATIENT DID NOT SUSTAIN ANY INJURIES, ABLE TO MOVE ALL EXTREMITIES WITHOUT PAIN AND NO DIFFICULTY. PATIENT STATED THAT HE TRIED TO HANG AT THE END OF THE BED AND SLOWLY WENT DOWN ON THE FLOOR. PATIENT SAID THAT HE DID NOT HIT HIS HEAD AND HIS ARM PREVENTED HIM FROM HITTING HIS HEAD. NO C/O HEADACHE OR DIZZINESS AT THIS TIME. DR. LARRY NOTIFIED WITH AN ORDER FOR STAT CT SCAN. FAMILY NOTIFIED WELL.
--- NOTE | 2022-06-19 15:20 | NUR ---
WITNESSED CONSENT FOR PLACEMENT OF HD CATHETER AND FOR HEMODIALYSIS, Addendum: 06/19/22 at 1816 by BILL SWENSON RN CORRECTION ON THE TIME, IT WAS 1720 WHEN THE NURSE WITNESSED CONSENT FOR PLACEMENT OF HD CATHETER AND FOR HEMODIALYSIS
--- NOTE | 2022-06-19 15:50 | NUR ---
PATIENT LEFT FOR STAT CT HEAD
--- NOTE | 2022-06-19 16:12 | NUR ---
PATIENT'S BACK IN THE ROOM IN NO ACUTE DISTRESS NOTED.
--- NOTE | 2022-06-19 16:15 | NUR ---
FAMILY HAD A CONFERENCE CALL WITH DR. LARRY AND HAD AN UPDATE ON THE PATIENT'S CONDITION.
[2022-06-19] MEDS: FUROSEMIDE 20 MG/2 ML VIAL IV SCH ×3 (16:22→18:42)
--- NOTE | 2022-06-19 16:32 | NUR ---
daughter talking to dr. mathew regarding possible hd.
--- NOTE | 2022-06-19 16:33 | NUR ---
abg result seen by dr. cavazos no new order.
--- NOTE | 2022-06-19 16:56 | NUR ---
discussed with family member if one can stay to sit with patient r/t on and off confusion and risk for fall.bed alarm on ,bed lower down siderails 3x up for safety.
--- NOTE | 2022-06-19 17:04 | NUR ---
PER DR. TAPIA PT. NEED HD AND GAVE ORDERS TO GET CONSENT FOR HD PLACEMENT AT BEDSIDE.
--- NOTE | 2022-06-19 17:08 | NUR ---
SPOKE WITH PHARMACIST, MED LASIX WAS ALREADY GIVEN
--- NOTE | 2022-06-19 18:51 | NUR ---
INSPECTOR EXHAUST EMISSIONS CLOSING NOTES: PATIENT IN BED WITH ALAINA DIAZ PLACING THE CATHETER AT THIS TIME. PATIENT AWAKE, ALERT, ORIENTED X 3. ON OXYGEN @ 3L/MIN VIA N/C WITH OXYGEN SATURATION OF 96%. NO RESPIRATORY DISTRESS NOTED AT THIS TIME. ON SR WITH HR OF 63 ON TELE MONITOR. HAS IV ACCESS ON LEFT HAND INFUSING WITH NS @ 50 ML/HR, NO S/S INFILTRATION NOTED. ALL NEEDS MET AND ANTICIPATED. BED LOCKED AND IN LOWEST POSITION WITH BED ALARM ON. CALL LIGHT WITHIN REACH. NO C/O PAIN OR DISCOMFORT NOTED THROUGHOUT SHIFT. WILL ENDORSE TO INCOMING NURSE FOR CONTINUITY OF CARE AND FOR SAFETY ASSESSMENT.
--- NOTE | 2022-06-19 19:03 | NUR ---
HD CATHETER PLACED ON RIGHT JUGULAR AREA BY ALAINA DIAZ, HD NURSE CONTACTED FOR HEMODIALYSIS TODAY, ENDORSED TO INCOMING NURSE. NO BLEEDING NOTED ON THE SITE.
--- NOTE | 2022-06-19 19:30 | NUR ---
RN OPENING NOTE RECEIVED PT IN BED, AWAKE, A/O X 2, DANISH SPEAKING, WITH PERIODS OF CONFUSION. FAMILY ON BEDSIDE. PT ON O2 VIA NC @ 3L, TOLERATING WELL, SATING @ 98%. TELE MONITOR READS SR WITH HR IN THE 60s. NO S/SX OF ACUTE RESPI DISTRESS NOTED AT THIS TIME. NO SOB, BREATHING IS EVEN AND UNLABORED. IV ACCESS ON L HAND, PATENT, INTACT AND FLUSHES WELL; SL ONLY. R JUGULAR PERMACATH NOTED FOR HD ACCESS. ALL SAFETY MEASURES IN PLACE: BED LOCKED IN LOW POSITION, BED ALARM ON. SR UP X 3, CALL LIGHT WITHIN EASY REACH. WILL CONTINUE TO MONITOR PT.
[2022-06-19] MEDS: ATORVASTATIN 40 MG TABLET PO SCH (21:43)
[2022-06-19] MEDS: TAMSULOSIN 0.4 MG CAP.SR.24H PO SCH (21:43)
[2022-06-19] MEDS: *INSULIN REGULAR(HUMULIN R)HUM 100 UNIT/ML VIAL SQ PRN (21:50)
--- NOTE | 2022-06-19 22:46 | NUR ---
RN NOTE DRESSING PLACED AND TAPED ON PT'S R JUGULAR PERMACATH TO AVOID GETTING PULLED OUT. ORIGINAL DRESSING WAS REMOVED BY PT.
[2022-06-20] VITALS: BP 142/68
[2022-06-20] MEDS: IPRATROPIUM NEB FS 0.5 MG/2.5 ML AMPUL.NEB NEB SCH ×5 (01:30→19:14)
[2022-06-20] MEDS: ALBUTEROL FS 2.5 MG/3 ML VIAL.NEB NEB SCH ×4 (01:43→19:14)
--- NOTE | 2022-06-20 02:29 | NUR ---
RT Pt refusing to take breathing TX, pt is confused and removes mask. RN notified. No SOB noted.
--- NOTE | 2022-06-20 02:35 | NUR ---
RN NOTE PT IS SHOWING SOME SIGNS OF CONFUSION, TRYING TO GET UP AND STAND ON THE BED. SAFETY MEASURES MAINTAINED: BED IN LOWEST POSITION. BED ALARM ON, SR UP X 3. CALL LIGHT WITHIN REACH. WILL CONTINUE TO MONITOR.
--- NOTE | 2022-06-20 03:00 | NUR ---
RN NOTE PT IN BED, SLEEPING. NO SIGNS OF AGITATION OR CONFUSION. WILL CONTINUE TO MONITOR.
--- NOTE | 2022-06-20 03:50 | NUR ---
RN NOTE PT BED ALARM WENT OFF, CHECKED PT IMMEDIATELY AND FOUND HIM ON THE FLOOR. PT ALREADY JUMPED OFF FROM THE SIDE RAILS. ABRASION NOTED ON THE R FOREHEAD CLOSE TO HIS EYE. MINOR BLEEDING NOTED. PICKED UP PT FROM THE FLOOR WITH ONE UTILIZATION MANAGEMENT UM NURSE AND ANOTHER NURSE AND BACK TO THE BED. NO OTHER INJURY NOTED. PT WAS ALERT AND ORIENTED. KNOWS HIS NAME, AGE, WHERE HE IS AT WHEN ASKED. DENIES PAIN. SAID HE IS JUST TIRED. PUT DRESSING ON HIS FOREHEAD. LAID PT BACK TO BED. SR UP X3, BED ALARM ON. WILL NOTIFY MD AND AWAIT FURTHER ORDERS. WILL CALL PT'S FAMILY TO INFORM THEM ABOUT THE INCIDENT.
[2022-06-20 04:00] VITALS: BP 134/77
--- NOTE | 2022-06-20 04:00 | NUR ---
RN NOTE PT AWAKE AND A LITTLE CONFUSED. KNOWS HIS NAME, AGE AND WHERE HE IS AT WHEN ASKED. NO SOB. DENIES PAIN. SAFETY PRECAUTIONS MAINTAINED: SR UP X 3. BED ALARM ON. BED IN LOWEST POSITION.
--- NOTE | 2022-06-20 04:05 | NUR ---
RN NOTE MD TUBING TESTER MADE AWARE OF PT'S FALL. HEAD CT ORDERED.
--- NOTE | 2022-06-20 04:08 | NUR ---
RN NOTE BILATERAL SOFT WRIST RESTRAINTS ORDERED AND APPLIED. WILL CONTINUE TO MONITOR PT.
[2022-06-20] MEDS: SODIUM BICARBONATE 650 MG TABLET PO SCH ×3 (05:09→17:17)
--- NOTE | 2022-06-20 05:11 | NUR ---
RN NOTE PT CAME BACK FROM HEADT CT. WILL AWAIT RESULT.
[2022-06-20 06:48] LABS: BASOPHILS % (AUTO) 0.2 % (0.0-2.0); HEMATOCRIT 31 % (39-51); HEMOGLOBIN 10.2 g/dL (13.5-17.5); LYMPHOCYTES # (AUTO) 1.2 K/uL (0.8-4.8); LYMPHOCYTES % (AUTO) 13.3 % (20.0-44.0); MEAN CORPUSCULAR HGB CONC 33 g/dl (31.0-36.0); MEAN CORPUSCULAR VOLUME 90 fL (80-96); MONOCYTES % (AUTO) 10.2 % (2.0-12.0); NEUTROPHILS # (AUTO) 6.9 K/uL (1.8-8.9); NEUTROPHILS % (AUTO) 73.3 % (43.0-81.0); PLATELET COUNT (AUTO) 244 K/uL (150-450); RED BLOOD CELL COUNT(AUTO) 3.43 MIL/uL (4.5-6.0); WHITE BLOOD COUNT (AUTO) 9.4 K/uL (4.3-11.0)
[2022-06-20 07:26] LABS: ALANINE AMINOTRANSFERASE 17 U/L (12-78); ALBUMIN 1.7 g/dL (3.4-5.0); ALKALINE PHOSPHATASE 79 U/L (46-116); ASPARTATE AMINOTRANSFERASE 20 U/L (15-37); BILIRUBIN,TOTAL 0.2 mg/dL (0.2-1.0); CALCIUM, SERUM 8.6 mg/dL (8.5-10.1); CARBON DIOXIDE 19 mmol/L (21-32); CHLORIDE 105 mmol/L (98-107); CREATININE 5.6 mg/dL (0.6-1.3); GLUCOSE 111 mg/dL (74-106); POTASSIUM 4.1 mmol/L (3.5-5.1); SODIUM SERUM 136 mmol/L (136-145); TOTAL PROTEIN, SERUM 5.6 g/dL (6.4-8.2); UREA NITROGEN, BLOOD 61 mg/dL (7-18)
--- NOTE | 2022-06-20 07:30 | NUR ---
RN OPENING NOTE RECEIVED PT IN BED, AWAKE, A/O X 2, CHINESE SPEAKING, WITH PERIODS OF CONFUSION. PT ON O2 VIA NC @ 3L, TOLERATING WELL, . TELE MONITOR. NO S/SX OF ACUTE RESPI DISTRESS NOTED AT THIS TIME. NO SOB, BREATHING IS EVEN AND UNLABORED. IV ACCESS ON L HAND, PATENT, INTACT AND FLUSHES WELL; SL ONLY. R JUGULAR PERMACATH NOTED FOR HD ACCESS. SAFETY MEASURES IN PLACE PER HOSPITAL POLICY. PATIENT NOTED TO HAVE BILATERAL WRIST SOFT RESTRAINTS, CHECKED OF CIRCULATION.
[2022-06-20] MEDS: INSULIN REGULAR, HUMAN 100 UNIT/ML 3 ML VIAL SQ PRN ×2 (07:47→17:31)
[2022-06-20] MEDS: BLOOD SUGAR DIAGNOSTIC 1 EACH STRIP VI SCH ×4 (07:47→23:01)
[2022-06-20 08:00] VITALS: BP 134/77
--- NOTE | 2022-06-20 08:20 | NUR ---
RN NOTE SITTER AT BEDSIDE, WRIST RESTRAINTS REMOVED. ADALBERTO STEIN
[2022-06-20] MEDS: METOPROLOL SUCCINATE 50 MG TAB.SR.24H PO SCH (08:26)
[2022-06-20] MEDS: ISOSORBIDE DINITRATE (20MG) 20 MG TABLET PO SCH ×2 (08:26→17:17)
[2022-06-20] MEDS: hydrALAZINE HCL 50 MG TABLET PO SCH ×3 (08:26→17:18)
[2022-06-20] MEDS: NIFEdipine XL (30MG) 30 MG TAB PO SCH ×2 (08:27→17:17)
[2022-06-20] MEDS: FUROSEMIDE 20 MG/2 ML VIAL IV SCH ×2 (08:27→17:18)
[2022-06-20] MEDS: BRIMONIDINE TARTRATE OPHT SOLN 5 ML BOTTLE EACHEYE SCH ×3 (08:38→17:31)
[2022-06-20] MEDS: TIMOLOL 0.5% SOLN OPHTH 5 ML BOTTLE EACHEYE SCH ×2 (08:38→17:30)
[2022-06-20 12:00] VITALS: BP 131/66
[2022-06-20] MEDS: CEFEPIME 1 GM in IV D5W 50 ML IV SCH ×2 (12:22→23:01)
[2022-06-20 16:00] VITALS: BP 138/68
--- NOTE | 2022-06-20 18:35 | NUR ---
SPECIALTY DEVELOPMENT CONSULTANT CLOSING NOTES: PATIENT IN BED PATIENT ALERT, ORIENTED X 1. ON ROOM AIR. NO RESPIRATORY DISTRESS NOTED AT THIS TIME. ON TELE MONITOR. HAS IV ACCESS ON LEFT HAND TKO NO S/S INFILTRATION NOTED. ALL NEEDS MET AND ANTICIPATED. BED LOCKED AND IN LOWEST POSITION WITH BED ALARM ON. CALL LIGHT WITHIN REACH. NO C/O PAIN OR DISCOMFORT NOTED THROUGHOUT SHIFT. WILL ENDORSE TO INCOMING NURSE FOR CONTINUITY OF CARE AND FOR SAFETY ASSESSMENT. FAMILY AT BEDSIDE
[2022-06-20 20:00] VITALS: BP 138/70
--- NOTE | 2022-06-20 20:00 | NUR ---
CRYPTOGRAPHIC CLERK OPENING NOTE RECEIVED PT IN BED, AWAKE, A/O X 2, MOZAMBICAN SPEAKING, WITH PERIODS OF CONFUSION. PT ON O2 VIA NC @ 3L, TOLERATING WELL, . TELE MONITOR.SR , NO S/SX OF ACUTE RESP DISTRESS NOTED AT THIS TIME. NO SOB, BREATHING IS EVEN AND UNLABORED. IV ACCESS ON L HAND, PATENT, INTACT AND FLUSHES WELL; DUE MEDS GIVEN ORDERED NO ASE NOTED . R JUGULAR PERMACATH NOTED FOR HD ACCESS. SAFETY MEASURES IN PLACE PER HOSPITAL POLICY. PATIENT ON 1:1 SITTER AT BEDSIDE V/S STABLE AFEBRILE WILL CONTINUE TO MONITOR PTS.
[2022-06-20] MEDS ORDERED: VANCOMYCIN 1 GM in IV D5W 250ml IV ONE (21:00)
[2022-06-20] MEDS: ATORVASTATIN 40 MG TABLET PO SCH (21:09)
[2022-06-20] MEDS: TAMSULOSIN 0.4 MG CAP.SR.24H PO SCH (21:09)
[2022-06-20] MEDS: *INSULIN REGULAR(HUMULIN R)HUM 100 UNIT/ML VIAL SQ PRN (22:59)
--- NOTE | 2022-06-20 23:03 | NUR ---
manager telemarketing notes Bood sugar at 2200hrs is 174mg/dl 3 units of regular insulin given per sliding scale
[2022-06-21] VITALS: BP 136/70
[2022-06-21] MEDS: SODIUM BICARBONATE 650 MG TABLET PO SCH ×4 (00:20→18:07)
[2022-06-21] MEDS: IPRATROPIUM NEB FS 0.5 MG/2.5 ML AMPUL.NEB NEB SCH ×4 (02:28→19:54)
[2022-06-21] MEDS: ALBUTEROL FS 2.5 MG/3 ML VIAL.NEB NEB SCH ×4 (02:28→19:54)
[2022-06-21 04:00] VITALS: BP 146/60
--- NOTE | 2022-06-21 05:55 | NUR ---
wireless telegrapher notes Pts remain in bed a/ox3 tajik speaking with 1:1 sitter at bedside to prevent pts marsha pulling out of bed remains on tele monitor SR , no sob no distress noted , for HD daily as ordered . all needs attended too call light within reach will endorse rn day shift for continuity of care.
[2022-06-21 07:11] LABS: BASOPHILS % (AUTO) 0.1 % (0.0-2.0); EOSINOPHILS % (AUTO) 2.4 % (0.0-6.0); HEMATOCRIT 32 % (39-51); HEMOGLOBIN 10.4 g/dL (13.5-17.5); LYMPHOCYTES # (AUTO) 1.9 K/uL (0.8-4.8); LYMPHOCYTES % (AUTO) 19.9 % (20.0-44.0); MEAN CORPUSCULAR HGB CONC 33 g/dl (31.0-36.0); MEAN CORPUSCULAR VOLUME 90 fL (80-96); MONOCYTES % (AUTO) 10.4 % (2.0-12.0); NEUTROPHILS # (AUTO) 6.3 K/uL (1.8-8.9); NEUTROPHILS % (AUTO) 67.2 % (43.0-81.0); PLATELET COUNT (AUTO) 248 K/uL (150-450); RED BLOOD CELL COUNT(AUTO) 3.56 MIL/uL (4.5-6.0); WHITE BLOOD COUNT (AUTO) 9.4 K/uL (4.3-11.0)
--- NOTE | 2022-06-21 07:21 | NUR ---
RN OPENING NOTE RECEIVED PT IN BED, ASLEEP, A/O X 3, LIBERIAN SPEAKING, WITH PERIODS OF CONFUSION. PT ON RA, TOLERATING WELL, . TELE MONITOR.SR , NO S/SX OF ACUTE RESP DISTRESS NOTED AT THIS TIME. NO SOB, BREATHING IS EVEN AND UNLABORED. IV ACCESS ON L HAND 22G, PATENT, INTACT AND FLUSHES WELL; R JUGULAR PERMACATH NOTED FOR HD ACCESS. SAFETY MEASURES IN PLACE PER HOSPITAL POLICY. PATIENT ON 1:1 SITTER AT BEDSIDE V/S STABLE AFEBRILE WILL CONTINUE TO MONITOR PTS.
[2022-06-21 07:24] LABS: CALCIUM, SERUM 8.3 mg/dL (8.5-10.1); CARBON DIOXIDE 22 mmol/L (21-32); CHLORIDE 105 mmol/L (98-107); CREATININE 4.8 mg/dL (0.6-1.3); GLUCOSE 106 mg/dL (74-106); POTASSIUM 3.8 mmol/L (3.5-5.1); SODIUM SERUM 138 mmol/L (136-145); UREA NITROGEN, BLOOD 51 mg/dL (7-18)
[2022-06-21] MEDS: BLOOD SUGAR DIAGNOSTIC 1 EACH STRIP VI SCH ×4 (07:30→22:11)
--- NOTE | 2022-06-21 07:40 | NUR ---
RN NOTE RT AT BEDSIDE
[2022-06-21 07:44] LABS: ALANINE AMINOTRANSFERASE 19 U/L (12-78); ALBUMIN 1.6 g/dL (3.4-5.0); ALKALINE PHOSPHATASE 78 U/L (46-116); ASPARTATE AMINOTRANSFERASE 20 U/L (15-37); BILIRUBIN,TOTAL 0.2 mg/dL (0.2-1.0); TOTAL PROTEIN, SERUM 5.6 g/dL (6.4-8.2)
[2022-06-21 08:00] VITALS: BP 141/68
[2022-06-21] MEDS: TIMOLOL 0.5% SOLN OPHTH 5 ML BOTTLE EACHEYE SCH ×2 (08:30→17:00)
[2022-06-21] MEDS: BRIMONIDINE TARTRATE OPHT SOLN 5 ML BOTTLE EACHEYE SCH ×3 (08:31→17:00)
[2022-06-21] MEDS: hydrALAZINE HCL 50 MG TABLET PO SCH ×3 (08:31→18:06)
[2022-06-21] MEDS: METOPROLOL SUCCINATE 50 MG TAB.SR.24H PO SCH (08:31)
[2022-06-21] MEDS: ISOSORBIDE DINITRATE (20MG) 20 MG TABLET PO SCH ×2 (08:32→18:05)
[2022-06-21] MEDS: FUROSEMIDE 20 MG/2 ML VIAL IV SCH ×2 (08:32→18:05)
[2022-06-21] MEDS: NIFEdipine XL (30MG) 30 MG TAB PO SCH ×2 (08:32→18:07)
--- NOTE | 2022-06-21 09:54 | NUR ---
RN NOTE PT AT BEDSIDE
[2022-06-21 12:00] VITALS: BP 135/76
[2022-06-21] MEDS: INSULIN REGULAR, HUMAN 100 UNIT/ML 3 ML VIAL SQ PRN ×2 (13:05→18:29)
--- NOTE | 2022-06-21 15:20 | NUR ---
RN NOTE DIALYSIS NURSE AT BEDSIDE
[2022-06-21 16:00] VITALS: BP 125/59
--- NOTE | 2022-06-21 17:25 | NUR ---
RN NOTE DIALYSIS FINISHED. 1 LITER REMOVED
--- NOTE | 2022-06-21 19:22 | NUR ---
RN CLOSING NOTES: PATIENT IN BED PATIENT ALERT, ORIENTED X 2-3. ON 2L NC. NO RESPIRATORY DISTRESS NOTED AT THIS TIME. ON TELE MONITOR. HAS IV ACCESS ON LEFT HAND TKO NO S/S INFILTRATION NOTED. ALL NEEDS MET AND ANTICIPATED. BED LOCKED AND IN LOWEST POSITION WITH BED ALARM ON. CALL LIGHT WITHIN REACH. NO C/O PAIN OR DISCOMFORT NOTED THROUGHOUT SHIFT. WILL ENDORSE TO INCOMING NURSE FOR CONTINUITY OF CARE AND FOR SAFETY ASSESSMENT. FAMILY AT BEDSIDE
[2022-06-21 20:00] VITALS: BP 133/73
--- NOTE | 2022-06-21 20:00 | NUR ---
RIVET SORTER OPENING NOTE RECEIVED PT IN BED, AWAKE, A/O X 2, [place] SPEAKING, WITH PERIODS OF CONFUSION. PT ON O2 VIA NC @ 3L, TOLERATING WELL, . TELE MONITOR.SR , NO S/SX OF ACUTE RESP DISTRESS NOTED AT THIS TIME. NO SOB, BREATHING IS EVEN AND UNLABORED. IV ACCESS ON L HAND, PATENT, INTACT AND FLUSHES WELL; DUE MEDS GIVEN ORDERED NO ASE NOTED . R JUGULAR FOR HD ACCESS. SAFETY MEASURES IN PLACE PER HOSPITAL POLICY. PATIENT ON 1:1 SITTER AT BEDSIDE V/S STABLE AFEBRILE WILL CONTINUE TO MONITOR PTS.
[2022-06-21] MEDS: TAMSULOSIN 0.4 MG CAP.SR.24H PO SCH (22:07)
[2022-06-21] MEDS: ATORVASTATIN 40 MG TABLET PO SCH (22:07)
[2022-06-21] MEDS: *INSULIN REGULAR(HUMULIN R)HUM 100 UNIT/ML VIAL SQ PRN (22:10)
--- NOTE | 2022-06-21 22:13 | NUR ---
television news reporter notes Blood sugar at 2200hrs is 178mg/dl 3 units of regular insulin given per slding scale
[2022-06-21] MEDS: CEFEPIME 1 GM in IV D5W 50 ML IV SCH (22:20)
[2022-06-22] VITALS: BP 125/59
[2022-06-22] MEDS: ALBUTEROL FS 2.5 MG/3 ML VIAL.NEB NEB SCH ×4 (02:20→19:40)
[2022-06-22] MEDS: IPRATROPIUM NEB FS 0.5 MG/2.5 ML AMPUL.NEB NEB SCH ×4 (02:20→19:40)
[2022-06-22] MEDS: SODIUM BICARBONATE 650 MG TABLET PO SCH ×4 (03:12→17:33)
[2022-06-22 04:00] VITALS: BP 139/61
--- NOTE | 2022-06-22 05:50 | NUR ---
telegraphic service dispatcher closing notes Pts remain in bed a/ox3 amharic speaking with 1:1 sitter at bedside to prevent pts marsha pulling out of bed remains on tele monitor SR , no sob no distress noted , for HD daily as ordered . all needs attended too call light within reach will endorse rn day shift for continuity of care.
[2022-06-22 06:49] LABS: BASOPHILS % (AUTO) 0.2 % (0.0-2.0); EOSINOPHILS % (AUTO) 2.2 % (0.0-6.0); HEMATOCRIT 29 % (39-51); LYMPHOCYTES # (AUTO) 2.1 K/uL (0.8-4.8); MEAN CORPUSCULAR HGB CONC 34 g/dl (31.0-36.0); MEAN CORPUSCULAR VOLUME 89 fL (80-96); MONOCYTES # (AUTO) 1.1 K/uL (0.1-1.30); NEUTROPHILS # (AUTO) 6.1 K/uL (1.8-8.9); NEUTROPHILS % (AUTO) 63.6 % (43.0-81.0); PLATELET COUNT (AUTO) 216 K/uL (150-450); RED BLOOD CELL COUNT(AUTO) 3.29 MIL/uL (4.5-6.0); WHITE BLOOD COUNT (AUTO) 9.5 K/uL (4.3-11.0)
[2022-06-22 07:09] LABS: CALCIUM, SERUM 8.1 mg/dL (8.5-10.1); CARBON DIOXIDE 27 mmol/L (21-32); CHLORIDE 104 mmol/L (98-107); CREATININE 4.1 mg/dL (0.6-1.3); GLUCOSE 119 mg/dL (74-106); POTASSIUM 3.5 mmol/L (3.5-5.1); SODIUM SERUM 138 mmol/L (136-145); UREA NITROGEN, BLOOD 40 mg/dL (7-18)
[2022-06-22 07:13] LABS: ALANINE AMINOTRANSFERASE 16 U/L (12-78); ALBUMIN 1.5 g/dL (3.4-5.0); ALKALINE PHOSPHATASE 86 U/L (46-116); ASPARTATE AMINOTRANSFERASE 21 U/L (15-37); BILIRUBIN,TOTAL 0.3 mg/dL (0.2-1.0); TOTAL PROTEIN, SERUM 5.4 g/dL (6.4-8.2)
--- NOTE | 2022-06-22 07:33 | NUR ---
PERSONAL LINES INSURANCE AGENT OPENING NOTE RECEIVED PT IN BED, SLEEPING ACCORDING TO METAL BONDER NURSE REPORT , A/O X 2, LATVIAN SPEAKING, WITH PERIODS OF CONFUSION. PT ON O2 VIA NC @ 3L, TOLERATING WELL, . TELE MONITOR.SR , NO S/SX OF ACUTE RESP DISTRESS NOTED AT THIS TIME. NO SOB, BREATHING IS EVEN AND UNLABORED. IV ACCESS ON R FOREARM , PATENT, INTACT AND FLUSHES WELL; DUE MEDS GIVEN ORDERED NO ASE NOTED . R JUGULAR FOR HD ACCESS. SAFETY MEASURES IN PLACE PER HOSPITAL POLICY.WILL CONTINUE TO MONITOR .
[2022-06-22] MEDS: BLOOD SUGAR DIAGNOSTIC 1 EACH STRIP VI SCH ×3 (07:52→16:43)
[2022-06-22 08:00] VITALS: BP 133/61
[2022-06-22] MEDS: BRIMONIDINE TARTRATE OPHT SOLN 5 ML BOTTLE EACHEYE SCH ×3 (08:26→16:27)
[2022-06-22] MEDS: TIMOLOL 0.5% SOLN OPHTH 5 ML BOTTLE EACHEYE SCH ×2 (08:27→16:27)
[2022-06-22] MEDS: hydrALAZINE HCL 50 MG TABLET PO SCH ×3 (08:27→16:28)
[2022-06-22] MEDS: ISOSORBIDE DINITRATE (20MG) 20 MG TABLET PO SCH ×2 (08:27→16:28)
[2022-06-22] MEDS: FUROSEMIDE 20 MG/2 ML VIAL IV SCH ×2 (08:27→16:27)
[2022-06-22] MEDS: METOPROLOL SUCCINATE 50 MG TAB.SR.24H PO SCH (08:28)
[2022-06-22] MEDS: NIFEdipine XL (30MG) 30 MG TAB PO SCH ×2 (08:28→16:28)
[2022-06-22] MEDS: *INSULIN REGULAR(HUMULIN R)HUM 100 UNIT/ML VIAL SQ PRN (11:56)
[2022-06-22 12:00] VITALS: BP 126/69
[2022-06-22 16:00] VITALS: BP 103/65
--- NOTE | 2022-06-22 19:30 | NUR ---
RN NOTES RECEIVED PT IN BED, AAOX3. CURRENTLY ON 2L O2 VIA NC, WELL ERIN. NO SOB/NO ACUTE RESP DISTRESS NOTED. AFEBRILE. NO CO PAIN OR DISCOMFORT AT THIS TIME. IV ACCESS ON L HAND, CLEAN AND DRY. PT ALSO HAS RIJ HD ACCESS, DRESSING CLEAN, NO S/SX OF BLEEDING. SITTER AT BEDSIDE. FALL AND SAFETY PRECAUTION IMPLEMENTED. FAMILY AT BEDSIDE. WILL CONT POC.
[2022-06-22 20:00] VITALS: BP 138/74
[2022-06-22] MEDS: ATORVASTATIN 40 MG TABLET PO SCH (23:05)
[2022-06-22] MEDS: TAMSULOSIN 0.4 MG CAP.SR.24H PO SCH (23:07)
[2022-06-22] MEDS: CEFEPIME 1 GM in IV D5W 50 ML IV SCH (23:07)
[2022-06-23] VITALS: BP 142/75
[2022-06-23] MEDS: BLOOD SUGAR DIAGNOSTIC 1 EACH STRIP VI SCH ×5 (00:08→21:51)
[2022-06-23] MEDS: *INSULIN REGULAR(HUMULIN R)HUM 100 UNIT/ML VIAL SQ PRN ×2 (00:10→21:53)
[2022-06-23] MEDS: SODIUM BICARBONATE 650 MG TABLET PO SCH ×2 (00:14→06:12)
[2022-06-23] MEDS: ALBUTEROL FS 2.5 MG/3 ML VIAL.NEB NEB SCH ×4 (01:21→19:50)
[2022-06-23] MEDS: IPRATROPIUM NEB FS 0.5 MG/2.5 ML AMPUL.NEB NEB SCH ×4 (01:21→19:50)
[2022-06-23 04:00] VITALS: BP 126/64
--- NOTE | 2022-06-23 06:45 | NUR ---
RN NOTE PT IN BED, AAOX3. AFEBRILE. PT WAS ON O2 TITRATION, CURRENTLY ON RA SATING 94-98%, WELL TOLERATED, NO SOB/ NO ACUTE DISTRESS NOTED. ALL DUE MEDICATIONS GIVEN ORDERED. SAFETY PRECAUTIONS IMPLEMENTED AT ALL TIMES. REMAINS IN STABLE CONDITION THROUGHOUT THE SHIFT. WILL ENDORSE TO AM SHIFT.
[2022-06-23 07:30] LABS: BASOPHILS % (AUTO) 0.3 % (0.0-2.0); EOSINOPHILS % (AUTO) 1.4 % (0.0-6.0); HEMATOCRIT 29 % (39-51); HEMOGLOBIN 9.8 g/dL (13.5-17.5); LYMPHOCYTES # (AUTO) 1.4 K/uL (0.8-4.8); LYMPHOCYTES % (AUTO) 13.5 % (20.0-44.0); MEAN CORPUSCULAR HGB CONC 33 g/dl (31.0-36.0); MEAN CORPUSCULAR VOLUME 89 fL (80-96); MONOCYTES # (AUTO) 1.4 K/uL (0.1-1.30); MONOCYTES % (AUTO) 13.8 % (2.0-12.0); NEUTROPHILS # (AUTO) 7.4 K/uL (1.8-8.9); PLATELET COUNT (AUTO) 229 K/uL (150-450); RED BLOOD CELL COUNT(AUTO) 3.29 MIL/uL (4.5-6.0); WHITE BLOOD COUNT (AUTO) 10.4 K/uL (4.3-11.0)
--- NOTE | 2022-06-23 07:30 | NUR ---
TRACK SERVICE PERSON AM NOTES PT IN BED, AAOX3. CURRENTLY ON 2L O2 VIA NC, WELL TOLERATED. NO SOB/NO ACUTE RESP DISTRESS NOTED. O2 SAT 97%.,AFEBRILE. SR WITH BBB AND PVCs HR 79 ON MONITOR. NO CO PAIN OR DISCOMFORT AT THIS TIME. IV ACCESS ON L HAND, CLEAN AND DRY. PT ALSO HAS RIJ HD ACCESS,CDI DRESSING. NO S/SX OF BLEEDING. SITTER AT BEDSIDE. FALL AND SAFETY PRECAUTION IMPLEMENTED. CALL LIGHT WITHIN REACH. WILL CONT TO MONITOR
[2022-06-23 08:00] VITALS: BP 145/73
[2022-06-23 08:04] LABS: ALANINE AMINOTRANSFERASE 16 U/L (12-78); ALBUMIN 1.5 g/dL (3.4-5.0); ALKALINE PHOSPHATASE 77 U/L (46-116); ASPARTATE AMINOTRANSFERASE 20 U/L (15-37); BILIRUBIN,TOTAL 0.3 mg/dL (0.2-1.0); CALCIUM, SERUM 8.3 mg/dL (8.5-10.1); CARBON DIOXIDE 29 mmol/L (21-32); CHLORIDE 103 mmol/L (98-107); CREATININE 3.9 mg/dL (0.6-1.3); GLUCOSE 129 mg/dL (74-106); POTASSIUM 3.3 mmol/L (3.5-5.1); SODIUM SERUM 137 mmol/L (136-145); TOTAL PROTEIN, SERUM 5.5 g/dL (6.4-8.2); UREA NITROGEN, BLOOD 35 mg/dL (7-18)
[2022-06-23] MEDS: METOPROLOL SUCCINATE 50 MG TAB.SR.24H PO SCH (09:00)
[2022-06-23] MEDS: hydrALAZINE HCL 50 MG TABLET PO SCH ×3 (09:00→16:55)
--- NOTE | 2022-06-23 09:00 | NUR ---
RN NOTES WILL GIVE DUE MEDS EXCEPT BP MEDS. PATIENT WILL HAVE DIALYSIS IN A FEW
[2022-06-23] MEDS: BRIMONIDINE TARTRATE OPHT SOLN 5 ML BOTTLE EACHEYE SCH ×3 (09:02→16:56)
[2022-06-23] MEDS: TIMOLOL 0.5% SOLN OPHTH 5 ML BOTTLE EACHEYE SCH ×2 (09:03→16:57)
[2022-06-23] MEDS: FUROSEMIDE 20 MG/2 ML VIAL IV SCH ×2 (09:09→16:56)
[2022-06-23] MEDS: ISOSORBIDE DINITRATE (20MG) 20 MG TABLET PO SCH ×2 (09:09→16:55)
[2022-06-23] MEDS: ACETAMINOPHEN 325 MG TABLET PO PRN (09:11)
--- NOTE | 2022-06-23 09:30 | NUR ---
RN NOTES DUE MEDS GIVEN
[2022-06-23] MEDS ORDERED: POTASSIUM CHLORIDE 20 MEQ POWDER PACKET PO ONE (10:00)
--- NOTE | 2022-06-23 10:49 | NUR ---
RN NOTES DR. DIAZ NOTIFIED NOTIFIED PT WITH FEVER. TEMP 101. EARLIER PT WAS GIVEN TYLENOL 650 MG. COOLING MEASURES APPLIED. NO NEW ORDERS
--- NOTE | 2022-06-23 11:30 | NUR ---
RN NOTES TEMP RECHECKED - 98.5
[2022-06-23 12:00] VITALS: BP 128/73
[2022-06-23] MEDS: INSULIN REGULAR, HUMAN 100 UNIT/ML 3 ML VIAL SQ PRN ×2 (12:30→17:11)
--- NOTE | 2022-06-23 12:52 | NUR ---
RN NOTES TEMP RECHECKED 98.5 BP MEDS NOT GIVEN. HD TO START
[2022-06-23] MEDS ORDERED: VANCOMYCIN 1 GM in IV D5W 250 ML IV PRN (13:30)
[2022-06-23 16:00] VITALS: BP 121/60
--- NOTE | 2022-06-23 18:15 | NUR ---
SPEECH COMMUNICATION INSTRUCTOR CLOSING NOTES PT IN BED, AAOX3. CURRENTLY ON 2L O2 VIA NC, WELL TOLERATED. NO SOB/NO ACUTE RESP DISTRESS NOTED. O2 SAT >95%., AFEBRILE. SR WITH BBB AND PVCs HR 67 ON MONITOR. NO CO PAIN OR DISCOMFORT AT THIS TIME. IV ACCESS ON L HAND, CLEAN AND DRY. PT ALSO HAS RIJ HD ACCESS,CDI DRESSING. NO S/SX OF BLEEDING. SITTER AT BEDSIDE. FALL AND SAFETY PRECAUTION IMPLEMENTED. CALL LIGHT WITHIN REACH. WILL ENDORSE TO NEXT SHIFT FOR MARIA FERNANDA PM CARE, TURNING AND REPOSITIONING Q 2HOURS DONE ALL NEEDS MET AT THIS TIME.
[2022-06-23 20:00] VITALS: BP 144/78
--- NOTE | 2022-06-23 21:53 | NUR ---
ACCU CHECK Bld glucose 201mg/dl. Given insulin 4 units per SS parameters, co signed by SOLITARIO Galindo.
[2022-06-23] MEDS: TAMSULOSIN 0.4 MG CAP.SR.24H PO SCH (21:54)
[2022-06-23] MEDS: ATORVASTATIN 40 MG TABLET PO SCH (21:55)
[2022-06-23] MEDS: CEFEPIME 1 GM in IV D5W 50 ML IV SCH (22:56)
[2022-06-24] VITALS (7 sets, daily range): BP systolic 137–167; BP diastolic 63–78
[2022-06-24] MEDS: IPRATROPIUM NEB FS 0.5 MG/2.5 ML AMPUL.NEB NEB SCH ×4 (01:35→20:04)
[2022-06-24] MEDS: ALBUTEROL FS 2.5 MG/3 ML VIAL.NEB NEB SCH ×4 (01:35→20:04)
[2022-06-24] MEDS: ACETAMINOPHEN 325 MG TABLET PO PRN ×2 (02:03→08:57)
--- NOTE | 2022-06-24 05:34 | NUR ---
END OF SHIFT REPORT Patient in bed, A/O x3. Sinus rhythm with BBB and PVC HR 80's in the Telemonitor. Oxygen sat high 90's in 2L NC. Right IJ HD cath intact, dressing dry. IV left hand intact. Temp max 99.7F cooling measure given. Leg pain improved with Tylenol. Voided urine no difficulty, no BM during the shift. Plan for cont abx. Oxygen supplement. Fall precaution maintained. Will endorse to oncoming RN.
--- NOTE | 2022-06-24 07:16 | NUR ---
MIXING OPERATOR OPENING NOTES Receievd pt awake in bed about to start HD. Alert and oriented x3 Amharic speaking. No complaints of pain or discomfort at this time. Pt has a 1:1 sitter d/t history of falling. Currently on 2L NC and tolerating it well. IV access on left hand 22G patent and intact. RIJ central line for HD access. HOB elevated to 30-45 degrees. Siderails up at all times x2. Bed at its lowest setting and locked. Call light within reach. Will continue to monitor.
[2022-06-24 07:39] LABS: BASOPHILS % (AUTO) 0.5 % (0.0-2.0); HEMATOCRIT 27 % (39-51); HEMOGLOBIN 9.1 g/dL (13.5-17.5); LYMPHOCYTES # (AUTO) 1.6 K/uL (0.8-4.8); LYMPHOCYTES % (AUTO) 19.8 % (20.0-44.0); MEAN CORPUSCULAR HGB CONC 33 g/dl (31.0-36.0); MEAN CORPUSCULAR VOLUME 89 fL (80-96); MONOCYTES # (AUTO) 0.8 K/uL (0.1-1.30); MONOCYTES % (AUTO) 9.6 % (2.0-12.0); NEUTROPHILS # (AUTO) 5.7 K/uL (1.8-8.9); NEUTROPHILS % (AUTO) 68.1 % (43.0-81.0); PLATELET COUNT (AUTO) 226 K/uL (150-450); RED BLOOD CELL COUNT(AUTO) 3.08 MIL/uL (4.5-6.0); WHITE BLOOD COUNT (AUTO) 8.3 K/uL (4.3-11.0)
[2022-06-24] MEDS: BLOOD SUGAR DIAGNOSTIC 1 EACH STRIP VI SCH ×4 (07:39→22:00)
[2022-06-24 07:56] LABS: CALCIUM, SERUM 8.1 mg/dL (8.5-10.1); CARBON DIOXIDE 28 mmol/L (21-32); CHLORIDE 103 mmol/L (98-107); CREATININE 3.2 mg/dL (0.6-1.3); GLUCOSE 120 mg/dL (74-106); SODIUM SERUM 137 mmol/L (136-145); UREA NITROGEN, BLOOD 28 mg/dL (7-18)
[2022-06-24 08:01] LABS: ALANINE AMINOTRANSFERASE 15 U/L (12-78); ALKALINE PHOSPHATASE 81 U/L (46-116); ASPARTATE AMINOTRANSFERASE 20 U/L (15-37); BILIRUBIN,TOTAL 0.3 mg/dL (0.2-1.0); TOTAL PROTEIN, SERUM 5.2 g/dL (6.4-8.2)
[2022-06-24 08:03] LABS: ALBUMIN 1.3 g/dL (3.4-5.0)
--- NOTE | 2022-06-24 08:27 | NUR ---
LINDERMAN OPERATOR NOTES Pharmacy called to inform that pts potassium is 3.0 and should inform the HD nurse to adjust HD. SOLITARIO Lawler informed of potassium 3.0.
[2022-06-24] MEDS: hydrALAZINE HCL 50 MG TABLET PO SCH ×3 (09:00→16:54)
[2022-06-24] MEDS: ISOSORBIDE DINITRATE (20MG) 20 MG TABLET PO SCH ×2 (09:00→16:54)
[2022-06-24] MEDS: FUROSEMIDE 20 MG/2 ML VIAL IV SCH ×2 (09:00→16:28)
[2022-06-24] MEDS: METOPROLOL SUCCINATE 50 MG TAB.SR.24H PO SCH (09:00)
[2022-06-24] MEDS: TIMOLOL 0.5% SOLN OPHTH 5 ML BOTTLE EACHEYE SCH ×2 (09:47→16:43)
[2022-06-24] MEDS: BRIMONIDINE TARTRATE OPHT SOLN 5 ML BOTTLE EACHEYE SCH ×3 (09:47→16:43)
--- NOTE | 2022-06-24 09:48 | NUR ---
CORRECTIONS CASEWORKER NOTES 0900 routine BP medications held d/t pt currently receiving HD per HD Nurse.
[2022-06-24] MEDS: INSULIN REGULAR, HUMAN 100 UNIT/ML 3 ML VIAL SQ PRN ×2 (11:16→16:43)
[2022-06-24] MEDS: VANCOMYCIN POST DIALYSIS 500MG IV PRN ×2 (15:49)
--- NOTE | 2022-06-24 18:36 | NUR ---
HOTEL REGISTRATION CLERK CLOSING NOTES All due meds and tx given as ordered. Pt tolerated everything well. All needs attended to. Pt is currently on 2L NC and tolerating it well. IV access on L hand 22G patent and intact. HOB elevated to 40 degrees. Call light within reach. Will endorse to oncoming nurse.
--- NOTE | 2022-06-24 19:30 | NUR ---
PATIENT ASLEEP WITH FAMILY AT BEDSIDE. EASILY AWAKEN. A/OX3. ECUADOREAN SPEAKING. IV ACCESS ON RIJ CENTRAL LINE AND LT HAND G#22 ON SL. SAFETY MEASURES IN PLACE. WILL CONTINUE PLAN OF CARE.
--- NOTE | 2022-06-24 23:11 | NUR ---
Endorsed to Charge nurse.
[2022-06-25] VITALS (8 sets, daily range): BP systolic 129–161; BP diastolic 62–81
[2022-06-25] MEDS: ATORVASTATIN 40 MG TABLET PO SCH ×2 (00:06→21:24)
[2022-06-25] MEDS: TAMSULOSIN 0.4 MG CAP.SR.24H PO SCH ×2 (00:06→21:24)
[2022-06-25] MEDS: CEFEPIME 1 GM in IV D5W 50 ML IV SCH (00:07)
[2022-06-25] MEDS: *INSULIN REGULAR(HUMULIN R)HUM 100 UNIT/ML VIAL SQ PRN ×2 (00:15→21:31)
[2022-06-25] MEDS: ACETAMINOPHEN 325 MG TABLET PO PRN ×2 (00:18→16:42)
[2022-06-25] MEDS: ALBUTEROL FS 2.5 MG/3 ML VIAL.NEB NEB SCH ×4 (01:32→20:17)
[2022-06-25] MEDS: IPRATROPIUM NEB FS 0.5 MG/2.5 ML AMPUL.NEB NEB SCH ×4 (01:32→20:17)
[2022-06-25] MEDS: hydrALAZINE HCL IV 20 MG VIAL IV PRN (02:47)
--- NOTE | 2022-06-25 07:30 | NUR ---
RN CLOSING NOTE PATIENT A/OX3. 2L NC, 96%. SINUS RHYTHM ON THE MONITOR. C/O PAIN PRN TYLENOL GIVEN , TMAX 99.5. PRN HYDRALAZINE GIVEN FOR BP GREATER THAN 150. PATIENT WAS CALM IN BED. PLAN TO CONTINUE MEL CONTROL, O2 TITRATION.
[2022-06-25 07:54] LABS: BASOPHILS % (AUTO) 0.4 % (0.0-2.0); EOSINOPHILS % (AUTO) 4.1 % (0.0-6.0); HEMATOCRIT 29 % (39-51); HEMOGLOBIN 9.6 g/dL (13.5-17.5); LYMPHOCYTES # (AUTO) 2.1 K/uL (0.8-4.8); LYMPHOCYTES % (AUTO) 16.3 % (20.0-44.0); MEAN CORPUSCULAR HGB CONC 33 g/dl (31.0-36.0); MEAN CORPUSCULAR VOLUME 90 fL (80-96); MONOCYTES # (AUTO) 1.7 K/uL (0.1-1.30); MONOCYTES % (AUTO) 13.4 % (2.0-12.0); NEUTROPHILS # (AUTO) 8.3 K/uL (1.8-8.9); NEUTROPHILS % (AUTO) 65.8 % (43.0-81.0); PLATELET COUNT (AUTO) 260 K/uL (150-450); RED BLOOD CELL COUNT(AUTO) 3.27 MIL/uL (4.5-6.0); WHITE BLOOD COUNT (AUTO) 12.6 K/uL (4.3-11.0)
[2022-06-25 07:56] LABS: ALANINE AMINOTRANSFERASE 16 U/L (12-78); ALKALINE PHOSPHATASE 82 U/L (46-116); ASPARTATE AMINOTRANSFERASE 21 U/L (15-37); BILIRUBIN,TOTAL 0.2 mg/dL (0.2-1.0); CALCIUM, SERUM 8.5 mg/dL (8.5-10.1); CARBON DIOXIDE 29 mmol/L (21-32); CHLORIDE 102 mmol/L (98-107); CREATININE 3.4 mg/dL (0.6-1.3); GLUCOSE 108 mg/dL (74-106); POTASSIUM 3.2 mmol/L (3.5-5.1); SODIUM SERUM 136 mmol/L (136-145); TOTAL PROTEIN, SERUM 5.4 g/dL (6.4-8.2); UREA NITROGEN, BLOOD 28 mg/dL (7-18)
[2022-06-25] MEDS: BLOOD SUGAR DIAGNOSTIC 1 EACH STRIP VI SCH ×4 (08:04→21:27)
[2022-06-25 08:27] LABS: ALBUMIN 1.3 g/dL (3.4-5.0)
[2022-06-25] MEDS: ISOSORBIDE DINITRATE (20MG) 20 MG TABLET PO SCH ×2 (09:00→16:46)
[2022-06-25] MEDS: hydrALAZINE HCL 50 MG TABLET PO SCH ×3 (09:00→16:47)
[2022-06-25] MEDS: BRIMONIDINE TARTRATE OPHT SOLN 5 ML BOTTLE EACHEYE SCH ×3 (09:36→16:45)
[2022-06-25] MEDS: TIMOLOL 0.5% SOLN OPHTH 5 ML BOTTLE EACHEYE SCH ×2 (09:37→16:44)
[2022-06-25] MEDS: METOPROLOL SUCCINATE 50 MG TAB.SR.24H PO SCH (09:44)
[2022-06-25] MEDS: FUROSEMIDE 20 MG/2 ML VIAL IV SCH ×2 (09:55→16:42)
[2022-06-25] MEDS: INSULIN REGULAR, HUMAN 100 UNIT/ML 3 ML VIAL SQ PRN ×2 (12:48→16:49)
--- NOTE | 2022-06-25 16:39 | NUR ---
1638--------AT 1639-PT BG 190
[2022-06-25] MEDS: VANCOMYCIN POST DIALYSIS 500MG IV PRN ×2 (17:50)
[2022-06-26] VITALS: BP 139/78
[2022-06-26] MEDS: CEFEPIME 1 GM in IV D5W 50 ML IV SCH ×2 (00:14→23:04)
[2022-06-26] MEDS: ALBUTEROL FS 2.5 MG/3 ML VIAL.NEB NEB SCH ×4 (01:48→20:08)
[2022-06-26] MEDS: IPRATROPIUM NEB FS 0.5 MG/2.5 ML AMPUL.NEB NEB SCH ×4 (01:48→20:08)
[2022-06-26 04:00] VITALS: BP 149/70
[2022-06-26 06:22] LABS: BASOPHILS % (AUTO) 0.3 % (0.0-2.0); EOSINOPHILS % (AUTO) 4.4 % (0.0-6.0); HEMATOCRIT 30 % (39-51); HEMOGLOBIN 9.8 g/dL (13.5-17.5); LYMPHOCYTES # (AUTO) 1.9 K/uL (0.8-4.8); LYMPHOCYTES % (AUTO) 16.6 % (20.0-44.0); MEAN CORPUSCULAR HGB CONC 33 g/dl (31.0-36.0); MEAN CORPUSCULAR VOLUME 89 fL (80-96); MONOCYTES # (AUTO) 1.3 K/uL (0.1-1.30); MONOCYTES % (AUTO) 11.8 % (2.0-12.0); NEUTROPHILS # (AUTO) 7.6 K/uL (1.8-8.9); NEUTROPHILS % (AUTO) 66.9 % (43.0-81.0); PLATELET COUNT (AUTO) 263 K/uL (150-450); RED BLOOD CELL COUNT(AUTO) 3.35 MIL/uL (4.5-6.0); WHITE BLOOD COUNT (AUTO) 11.4 K/uL (4.3-11.0)
[2022-06-26 06:28] LABS: ALANINE AMINOTRANSFERASE 21 U/L (12-78); ALKALINE PHOSPHATASE 91 U/L (46-116); ASPARTATE AMINOTRANSFERASE 26 U/L (15-37); BILIRUBIN,TOTAL 0.2 mg/dL (0.2-1.0); CALCIUM, SERUM 8.4 mg/dL (8.5-10.1); CARBON DIOXIDE 26 mmol/L (21-32); CHLORIDE 101 mmol/L (98-107); CREATININE 3.5 mg/dL (0.6-1.3); GLUCOSE 117 mg/dL (74-106); POTASSIUM 3.3 mmol/L (3.5-5.1); SODIUM SERUM 136 mmol/L (136-145); TOTAL PROTEIN, SERUM 5.6 g/dL (6.4-8.2); UREA NITROGEN, BLOOD 33 mg/dL (7-18)
--- NOTE | 2022-06-26 06:34 | NUR ---
END OF SHIFT, PATIENT ASLEEP, AROUSES TO VERBAL STIMULI, A/O X3, 4, AT 2LPM VIA NC WIT OPTIMAL O2 SAT LEVEL, NO SOB/ DISTRESS OVER NIGHT, NSR IN TELE MONITOR WIT BBB, OCCASIONAL PVCS, IV IN LEFT FA GAUGE 20, PATENT AND INTACT, RIGHT IJ CATH FOR HD, DRESSING CHANGED LAST NIGHT, ALL SAFETY MEASURES IN PLACED, HD SCHEDULED FOR TODAY, STABLE VITAL SIGNS, AFEBRILE, OTHERWISE NO SIGNIFICANT CHANGE IN CONDITION, CALL LIGHT WITHIN REACH.WILL ENDORSE CONTINUITY OF CARE TO ONCOMING NURSE.
[2022-06-26] MEDS: BLOOD SUGAR DIAGNOSTIC 1 EACH STRIP VI SCH ×4 (07:46→21:44)
[2022-06-26 08:00] VITALS: BP 176/67
[2022-06-26] MEDS: hydrALAZINE HCL 50 MG TABLET PO SCH ×3 (08:44→16:50)
[2022-06-26] MEDS: ISOSORBIDE DINITRATE (20MG) 20 MG TABLET PO SCH ×2 (08:44→16:50)
[2022-06-26] MEDS: BRIMONIDINE TARTRATE OPHT SOLN 5 ML BOTTLE EACHEYE SCH ×3 (08:45→16:50)
[2022-06-26] MEDS: FUROSEMIDE 20 MG/2 ML VIAL IV SCH ×2 (08:45→16:49)
[2022-06-26] MEDS: TIMOLOL 0.5% SOLN OPHTH 5 ML BOTTLE EACHEYE SCH ×2 (08:45→16:50)
[2022-06-26] MEDS: METOPROLOL SUCCINATE 50 MG TAB.SR.24H PO SCH (08:45)
--- NOTE | 2022-06-26 09:00 | NUR ---
RN NOTE PATIENT'S DAUGHTER NOTED THAT HIS DAD'S LOWER EXTREMITIES COLOR IS NOT USUAL AND IS WARM TO TOUCH DR. VILLANUEVA NOTIFIED AND I SUGGESTED ULTRASOUND HE REPLIED THAT HE HAVE SEEN THE PATIENT AND LEGS LOOKED NORMAL BUT I CAN ORDER THE ULTRA SOUND.
--- NOTE | 2022-06-26 10:21 | NUR ---
followup with dr. priyanka campbell cath placement per md dr. caban has plans to do it.
--- NOTE | 2022-06-26 10:22 | NUR ---
dr. caban notified left message office to confirm time for perma cth placement,will ff. up consent with family.
[2022-06-26] MEDS ORDERED: CLONIDINE HCL 0.1 MG TABLET PO PRN (10:30)
[2022-06-26] MEDS: INSULIN REGULAR, HUMAN 100 UNIT/ML 3 ML VIAL SQ PRN ×2 (11:41→18:28)
[2022-06-26 12:00] VITALS: BP 150/67
--- NOTE | 2022-06-26 12:15 | NUR ---
RN NOTE PER ULTRA SOUND TECH PATIENT IS POSITIVE FOR LEFT LEG DVT, DR. VILLANUEVA NOTIFIED. PATIENT HAS A PERMA CATH PLACEMENT TOMORROW DR. VILLANUEVA ALSO NOTIFIED REGARDING THE PROCEDURE HE HAS NOT REPLIED YET.
--- NOTE | 2022-06-26 13:30 | NUR ---
RN NOTE PATIENT HAS DIALYSIS NOW, HYDRALAZINE HELD PER ANJEL THE DIALYSIS NURSE.
--- NOTE | 2022-06-26 14:45 | NUR ---
RN NOTE PATIENT IS GOING TO HAVE A PERMA CATH PLACEMENT TOMORROW AT [address]. DR. VILLANUEVA REPLIED BY TEXT THAT HE WILL TAKE CARE OF THE DVT ON PATIENT'S LEFT LEG.
--- NOTE | 2022-06-26 15:15 | NUR ---
RN REPORT NOTE PATENT INDORSED TO JAIME JEREZ. I TRANSFERRED TO ICU.
--- NOTE | 2022-06-26 15:49 | NUR ---
CLARIFIED WITH DR. MARY CALDWELL TO GIVE HEPARIN SQ ORDERED.BUT IF IT IS CHANGE TO HEPARIN DRIP NEED TO HOLD DOSE AT 8AM,DR. MARTINEZ NOTIFIED.
[2022-06-26 16:00] VITALS: BP 149/74
[2022-06-26] MEDS: HEPARIN SODIUM, PORCINE 5000 UNITS/1 ML VIAL SQ SCH ×2 (16:03→17:00)
[2022-06-26] MEDS: ACETAMINOPHEN 325 MG TABLET PO PRN (18:29)
--- NOTE | 2022-06-26 18:58 | NUR ---
RN CLOSING NOTE PATIENT ASLEEP, AROUSES TO VERBAL STIMULI, A/O X3, 4, AT 2LPM VIA NC WIT OPTIMAL O2 SAT LEVEL, NO SOB/ DISTRESS , IV IN LEFT FA GAUGE 20, PATENT AND INTACT, RIGHT IJ CATH FOR HD, DRESSING CHANGED LAST NIGHT, ALL SAFETY MEASURES IN PLACED, HD SCHEDULED FOR TODAY, STABLE VITAL SIGNS, AFEBRILE, PT IS CURRENTLY GETTING HD, CALL LIGHT WITHIN REACH.WILL ENDORSE CONTINUITY OF CARE TO ONCOMING NURSE.
--- NOTE | 2022-06-26 19:20 | NUR ---
RN NOTES RECEIVED REPORT FROM MORNING SHIFT. PATIENT IN BED A/O X3 ICELANDIC SPEAKING. ON OXYGEN INHALATION AT 2 LPM TOLERATING WELL SATING 98% NO SOB NO DISTRESS NOTED AT THIS TIME. WITH IV ACCESS AT L FA # 20 PATENT FLUSHES WELL NO REDNESS NO INFILTRATION NOTED AT THIS TIME. WITH IJ CATHETER IN PLACE ONGOING HEMODIALYSIS BY HD NURSE AT BEDSIDE. ALL SAFETY MEASURES IN PLACE. HOB ELEVATED. CALL LIGHT WITHIN REACH. WILL CLOSELY MONITOR THE PATIENT
[2022-06-26 20:00] VITALS: BP 126/66
--- NOTE | 2022-06-26 20:50 | NUR ---
RN NOTES HEMODIALYSIS COMPLETED NO COMPLICATION NOTED. UF GOAL 1L.
[2022-06-26] MEDS: TAMSULOSIN 0.4 MG CAP.SR.24H PO SCH (21:40)
[2022-06-26] MEDS: ATORVASTATIN 40 MG TABLET PO SCH (21:40)
[2022-06-26] MEDS: *INSULIN REGULAR(HUMULIN R)HUM 100 UNIT/ML VIAL SQ PRN (21:48)
[2022-06-27] VITALS: BP 130/65
[2022-06-27] MEDS: IPRATROPIUM NEB FS 0.5 MG/2.5 ML AMPUL.NEB NEB SCH ×4 (01:43→20:05)
[2022-06-27] MEDS: ALBUTEROL FS 2.5 MG/3 ML VIAL.NEB NEB SCH ×4 (01:43→20:05)
[2022-06-27 04:00] VITALS: BP 149/88
[2022-06-27 06:40] LABS: BASOPHILS % (AUTO) 0.4 % (0.0-2.0); HEMATOCRIT 27 % (39-51); HEMOGLOBIN 8.9 g/dL (13.5-17.5); LYMPHOCYTES # (AUTO) 1.7 K/uL (0.8-4.8); LYMPHOCYTES % (AUTO) 17.1 % (20.0-44.0); MEAN CORPUSCULAR HGB CONC 34 g/dl (31.0-36.0); MEAN CORPUSCULAR VOLUME 89 fL (80-96); MONOCYTES # (AUTO) 1.2 K/uL (0.1-1.30); MONOCYTES % (AUTO) 11.8 % (2.0-12.0); NEUTROPHILS # (AUTO) 6.5 K/uL (1.8-8.9); NEUTROPHILS % (AUTO) 65.7 % (43.0-81.0); PLATELET COUNT (AUTO) 260 K/uL (150-450); RED BLOOD CELL COUNT(AUTO) 3.01 MIL/uL (4.5-6.0); WHITE BLOOD COUNT (AUTO) 9.9 K/uL (4.3-11.0)
--- NOTE | 2022-06-27 07:00 | NUR ---
RN NOTES PATIENT REMAINS STABLE NO SIGNIFICANT CHANGES. NO SOB NO DISTRESS NOTED. S/P HD WITYH 1 L UF GOLA. PATIENT ON NPO SINCE MIDNIGHT FOR PERMACATH INSERTION. WILL ENDORSED TO MORNING SHIFT FOR MARIA FERNANDA
--- NOTE | 2022-06-27 07:28 | NUR ---
RN OPENING NOTES RECEIVED REPORT FROM STRUCTURAL STEEL WORKER APPRENTICE. PATIENT IN BED A/O X3 INDONESIAN SPEAKING. ON OXYGEN INHALATION AT 2 LPM TOLERATING WELL SATING 98% NO SOB NO DISTRESS NOTED AT THIS TIME. WITH IV ACCESS AT L FA # 20 PATENT FLUSHES WELL NO REDNESS NO INFILTRATION NOTED AT THIS TIME. WITH IJ CATHETER IN PLACE NO BLEEDING NOTED. ALL SAFETY MEASURES IN PLACE. HOB ELEVATED. CALL LIGHT WITHIN REACH. PATIENT IS NPO DUE TO PERMCATH PROCEDURE TODAY WITH DR HERNANDEZ AT 1300.
[2022-06-27 07:36] LABS: ALANINE AMINOTRANSFERASE 22 U/L (12-78); ALKALINE PHOSPHATASE 82 U/L (46-116); ASPARTATE AMINOTRANSFERASE 24 U/L (15-37); BILIRUBIN,TOTAL 0.2 mg/dL (0.2-1.0); CALCIUM, SERUM 8.3 mg/dL (8.5-10.1); CARBON DIOXIDE 29 mmol/L (21-32); CHLORIDE 102 mmol/L (98-107); CREATININE 3.3 mg/dL (0.6-1.3); GLUCOSE 116 mg/dL (74-106); POTASSIUM 3.3 mmol/L (3.5-5.1); SODIUM SERUM 137 mmol/L (136-145); TOTAL PROTEIN, SERUM 5.2 g/dL (6.4-8.2); UREA NITROGEN, BLOOD 30 mg/dL (7-18)
[2022-06-27 07:54] LABS: ALBUMIN 1.2 g/dL (3.4-5.0)
[2022-06-27 08:00] VITALS: BP 166/76
[2022-06-27] MEDS: BLOOD SUGAR DIAGNOSTIC 1 EACH STRIP VI SCH ×4 (08:22→21:13)
[2022-06-27] MEDS: INSULIN REGULAR, HUMAN 100 UNIT/ML 3 ML VIAL SQ PRN ×2 (08:23→16:59)
[2022-06-27] MEDS: FUROSEMIDE 20 MG/2 ML VIAL IV SCH ×2 (08:23→16:54)
[2022-06-27] MEDS: ISOSORBIDE DINITRATE (20MG) 20 MG TABLET PO SCH ×2 (08:23→16:52)
[2022-06-27] MEDS: METOPROLOL SUCCINATE 50 MG TAB.SR.24H PO SCH (08:24)
[2022-06-27] MEDS: hydrALAZINE HCL 50 MG TABLET PO SCH ×3 (08:24→16:53)
[2022-06-27] MEDS: HEPARIN SODIUM, PORCINE 5000 UNITS/1 ML VIAL SQ SCH ×2 (08:30→17:00)
[2022-06-27] MEDS: BRIMONIDINE TARTRATE OPHT SOLN 5 ML BOTTLE EACHEYE SCH ×3 (08:31→16:52)
[2022-06-27] MEDS: TIMOLOL 0.5% SOLN OPHTH 5 ML BOTTLE EACHEYE SCH ×2 (08:31→16:52)
[2022-06-27] MEDS: ACETAMINOPHEN 325 MG TABLET PO PRN (08:39)
[2022-06-27] MEDS ORDERED: LIDOCAINE 1% INJ 50 ML MDV IJ ONE (09:02)
[2022-06-27] MEDS ORDERED: HEPARIN SODIUM, PORCINE 1,000 UNIT/ML VIAL ONE (09:02)
[2022-06-27] MEDS ORDERED: IOHEXOL 240MG/ML 0 ML IV ONE (09:02)
--- NOTE | 2022-06-27 10:25 | NUR ---
RN NOTE PATIENT WAS TAKEN TO SURGERY, VIA HOSPITAL BED IN STABLE CONDITION.
[2022-06-27] MEDS ORDERED: FENTANYL PF 100MCG/2ML AMPUL ONE (10:34)
[2022-06-27 13:40] VITALS: BP 123/62
[2022-06-27 16:00] VITALS: BP 137/67
--- NOTE | 2022-06-27 18:53 | NUR ---
RN CLOSING NOTE PATIENT ASLEEP, AROUSES TO VERBAL STIMULI, A/O X3, 4, AT 2LPM VIA NC WIT OPTIMAL O2 SAT LEVEL, NO SOB/ DISTRESS , IV IN LEFT FA GAUGE 20, PATENT AND INTACT, RIGHT PERM CATH, T, ALL SAFETY MEASURES IN PLACED, , STABLE VITAL SIGNS, AFEBRILE, PT IS CURRENTLY GETTING HD, CALL LIGHT WITHIN REACH.WILL ENDORSE CONTINUITY OF CARE TO ONCOMING NURSE.
--- NOTE | 2022-06-27 19:05 | NUR ---
FINANCE ATTORNEY OPENING NOTE PATIENT IS LYING IN BED; AND HIS FAMILY MEMBERS ARE AT HIS BEDSIDE. PATIENT IS ARMENIAN SPEAKER, UNDERSTANDS LITTLE NORTH KOREAN. HE IS ALERT AND ORIENTED, AO X 2. PATIENT IS ON 2 LPM OF OXYGEN, TOLERATED WELL. NO S/S OF DISTRESS OR SOB. IV ACCESS IS AT HIS L FA, #20G, SL. FLUSHED WELL WITH 10 CC NS; IV SITE IS PATENT AND INTACT. PATIENT HAS A NEW IJ AT HIS RIGHT SIDE OF THE UPPER CHEST AND NECK FOR HEMODIALYSIS; DRESSING IS PATENT AND INTACT. PATIENT IS ON EXTERNAL LOCOMOTIVE LUBRICATING SYSTEMS CLERK, ON THE MONITOR, HIS HEART RHYTHM IS SR OR SB WITH SOME BBB AND PVCS; HEART RATE IS BETWEEN THE RANGE OF UPPER 50S AND UPPER 90S. SAFETY MEASURES ARE IN PLACE: BED IN LOWEST AND LOCKED POSITION; SIDE RAILS UP X 2; BED ALARM IS SET. WILL CONTINUE MONITORING THE PATIENT'S CONDITION AND PROVIDE THE CARE PATIENT NEEDS.
[2022-06-27 20:00] VITALS: BP 137/69
[2022-06-27] MEDS: ANCEF 1 GM/50 ML D5W IV SCH ×2 (20:29)
[2022-06-27] MEDS: TAMSULOSIN 0.4 MG CAP.SR.24H PO SCH (21:01)
[2022-06-27] MEDS: ATORVASTATIN 40 MG TABLET PO SCH (21:01)
[2022-06-27] MEDS: *INSULIN REGULAR(HUMULIN R)HUM 100 UNIT/ML VIAL SQ PRN (21:18)
[2022-06-27] MEDS: CEFEPIME 1 GM in IV D5W 50 ML IV SCH (22:08)
[2022-06-28] VITALS: BP 137/77
[2022-06-28] MEDS: ACETAMINOPHEN 325 MG TABLET PO PRN ×2 (00:46→15:39)
--- NOTE | 2022-06-28 00:51 | NUR ---
COLLABORATIVE PHYSICIAN NOTE PATIENT COMPLAIN OF HAVING R SIDE NECK PAIN; PAIN LEVEL IS 3/10. CHECKED THE IJ SITE, SMALL AMOUNT OF DRAINAGE IN PINK COLOR IS ON THE GAUZE. PRN MEDICATION TYLENOL PO MEDICATION GIVEN PER MD ORDER.
[2022-06-28] MEDS: ALBUTEROL FS 2.5 MG/3 ML VIAL.NEB NEB SCH ×3 (00:56→14:04)
[2022-06-28] MEDS: IPRATROPIUM NEB FS 0.5 MG/2.5 ML AMPUL.NEB NEB SCH ×3 (00:56→14:04)
[2022-06-28] MEDS: ANCEF 1 GM/50 ML D5W IV SCH ×2 (03:02)
[2022-06-28 04:00] VITALS: BP 156/75
[2022-06-28] MEDS: BLOOD SUGAR DIAGNOSTIC 1 EACH STRIP VI SCH ×2 (06:46→13:38)
[2022-06-28 06:57] LABS: BASOPHILS % (AUTO) 0.3 % (0.0-2.0); EOSINOPHILS % (AUTO) 4.9 % (0.0-6.0); HEMATOCRIT 28 % (39-51); HEMOGLOBIN 9.1 g/dL (13.5-17.5); LYMPHOCYTES % (AUTO) 19.4 % (20.0-44.0); MEAN CORPUSCULAR HGB CONC 33 g/dl (31.0-36.0); MEAN CORPUSCULAR VOLUME 89 fL (80-96); MONOCYTES # (AUTO) 1.1 K/uL (0.1-1.30); NEUTROPHILS # (AUTO) 6.8 K/uL (1.8-8.9); NEUTROPHILS % (AUTO) 65.4 % (43.0-81.0); PLATELET COUNT (AUTO) 268 K/uL (150-450); RED BLOOD CELL COUNT(AUTO) 3.12 MIL/uL (4.5-6.0); WHITE BLOOD COUNT (AUTO) 10.5 K/uL (4.3-11.0)
--- NOTE | 2022-06-28 07:09 | NUR ---
IT SECURITY ANALYST CLOSING NOTE PATIENT IS SLEEPING IN BED, EASILY BEING AROUSED.. HE IS ALERT AND ORIENTED, AO X 2. PATIENT IS ON 2 LPM OF OXYGEN, TOLERATED WELL. NO S/S OF DISTRESS OR SOB. IV ACCESS IS AT HIS L FA, #20G, SL; PATENT AND INTACT. PATIENT'S NEW IJ SITE DRESSING HAS SMALL AMOUNT OF PINK COLOR DRAINAGE ON THE GAUZE; WILL ASK THE DIALYSIS NURSE TO CHANGE THE DRESSING DURING THE DAY SHIFT. PATIENT IS ON EXTERNAL SAUTE CHEF, ON THE MONITOR, HIS HEART RHYTHM IS SR WITH SOME BBB AND PVCS; HEART RATE IS AROUND 60S. SAFETY MEASURES ARE IN PLACE: BED IN LOWEST AND LOCKED POSITION; SIDE RAILS UP X 2; BED ALARM IS SET. CALL LIGHT AND TABLE ARE WITHIN REACH. WILL ENDORSE DAY SHIFT NURSE FOR CONTINUING PATIENT CARE.
[2022-06-28 07:19] LABS: CALCIUM, SERUM 8.4 mg/dL (8.5-10.1); CARBON DIOXIDE 27 mmol/L (21-32); CHLORIDE 103 mmol/L (98-107); CREATININE 3.4 mg/dL (0.6-1.3); GLUCOSE 110 mg/dL (74-106); POTASSIUM 3.5 mmol/L (3.5-5.1); SODIUM SERUM 137 mmol/L (136-145); UREA NITROGEN, BLOOD 36 mg/dL (7-18)
[2022-06-28 07:25] LABS: ALANINE AMINOTRANSFERASE 19 U/L (12-78); ALKALINE PHOSPHATASE 85 U/L (46-116); ASPARTATE AMINOTRANSFERASE 25 U/L (15-37); BILIRUBIN,TOTAL 0.1 mg/dL (0.2-1.0); TOTAL PROTEIN, SERUM 5.4 g/dL (6.4-8.2)
[2022-06-28 08:00] VITALS: BP 167/80
[2022-06-28 08:13] LABS: ALBUMIN 1.2 g/dL (3.4-5.0)
[2022-06-28] MEDS: HEPARIN SODIUM, PORCINE 5000 UNITS/1 ML VIAL SQ SCH (08:52)
[2022-06-28] MEDS: FUROSEMIDE 20 MG/2 ML VIAL IV SCH (08:53)
[2022-06-28] MEDS: ISOSORBIDE DINITRATE (20MG) 20 MG TABLET PO SCH (08:53)
[2022-06-28] MEDS: METOPROLOL SUCCINATE 50 MG TAB.SR.24H PO SCH (08:54)
[2022-06-28] MEDS: hydrALAZINE HCL 50 MG TABLET PO SCH ×2 (08:54→13:52)
[2022-06-28] MEDS ORDERED: APIXABAN 5 MG TABLET PO SCH (09:00)
[2022-06-28] MEDS: TIMOLOL 0.5% SOLN OPHTH 5 ML BOTTLE EACHEYE SCH (09:12)
[2022-06-28] MEDS: BRIMONIDINE TARTRATE OPHT SOLN 5 ML BOTTLE EACHEYE SCH ×2 (09:13→13:00)
[2022-06-28] MEDS ORDERED: METO50TA7 PO (11:52)
[2022-06-28] MEDS ORDERED: HYDR-4077 PO (11:52)
[2022-06-28] MEDS ORDERED: ISOS20TA8 PO (11:52)
--- NOTE | 2022-06-28 11:56 | NUR ---
RN NOTE PATIENT NOW BREATHING ON ROOM AIR WITH 02 SAT OF 96%.
[2022-06-28 12:00] VITALS: BP 133/66
[2022-06-28] MEDS ORDERED: NEPRO VAN 237 ML CAN PO PRN (12:30)
[2022-06-28 13:52] VITALS: BP 133/66
[2022-06-28] MEDS: INSULIN REGULAR, HUMAN 100 UNIT/ML 3 ML VIAL SQ PRN (13:52)
[2022-06-28] MEDS ORDERED: VANCOMYCIN 1 GM in IV D5W 250ml IV ONE (18:00)
--- NOTE | 2022-06-28 19:30 | NUR ---
RN NOTE PATIENT DISCHARGED IN STABLE CONDITION. IV ACCESS REMOVED, TELE BOX REMOVED. DISCHARGE INSTRUCTIONS SIGNED BY PATIENT AND VERBALIZED UNDERSTANDING OF DIALYSIS APPOINTMENTS. PATIENT PICKED UP BY DAUGHTER STACIA, WHO STATED "WE WILL NOT SIGN BELONGINGS LIST UNTIL WE FIND MY DAD'S PHONE". PATIENT'S PHONE WAS LOCATED IN [facility] VIA FIND MY IPHONE DARIUS ON STACIA'S IPHONE. BELONGINGS LIST SIGNED, PATIENT DISCHARGED WITH ALL BELONGINGS. ESCORTED PATIENT BY WHEELCHAIR TO LOBBY, AND SAFELY ASSISTED PATIENT INTO PATIENT'S DAUGHTER'S JOEL SUV.
== END 2022-06-28 19:23 | disposition home health service (06) | DRG 673 ==
LOC: ER 18:56 → TELE1 06-14 01:46
PROVIDERS: ADMIT Internal Medicine; ATTEND Internal Medicine
PROC: 05HM33Z Insertion of Infusion Device into Right Internal Jugular Vein, Percutaneous Approach (ICD-10-PCS; 2022-06-19)
PROC: 5A1D70Z Performance of Urinary Filtration, Intermittent, Less than 6 Hours Per Day (ICD-10-PCS; 2022-06-19)
PROC: B543ZZA Ultrasonography of Right Jugular Veins, Guidance (ICD-10-PCS; 2022-06-19)
PROC: 0JH63XZ Insertion of Tunneled Vascular Access Device into Chest Subcutaneous Tissue and Fascia, Percutaneous Approach (ICD-10-PCS; principal; 2022-06-27)
PROC: 05HM33Z Insertion of Infusion Device into Right Internal Jugular Vein, Percutaneous Approach (ICD-10-PCS; 2022-06-27)
PROC: B513YZA Fluoroscopy of Right Jugular Veins using Other Contrast, Guidance (ICD-10-PCS; 2022-06-27)
DX: N17.0 Acute kidney failure with tubular necrosis (principal); G92.8 Other toxic encephalopathy; R53.2 Functional quadriplegia; I21.4 Non-ST elevation (NSTEMI) myocardial infarction; J96.01 Acute respiratory failure with hypoxia; I16.1 Hypertensive emergency; I50.32 Chronic diastolic (congestive) heart failure; E66.2 Morbid (severe) obesity with alveolar hypoventilation; I13.0 Hypertensive heart and chronic kidney disease with heart failure and stage 1 through stage 4 chronic kidney disease, or unspecified chronic kidney disease; I82.512 Chronic embolism and thrombosis of left femoral vein; E87.5 Hyperkalemia; Z20.822 Contact with and (suspected) exposure to COVID-19; E11.22 Type 2 diabetes mellitus with diabetic chronic kidney disease; E11.40 Type 2 diabetes mellitus with diabetic neuropathy, unspecified; E78.5 Hyperlipidemia, unspecified; Z88.8 Allergy status to other drugs, medicaments and biological substances; Z79.899 Other long term (current) drug therapy; D64.9 Anemia, unspecified; I27.20 Pulmonary hypertension, unspecified; Z68.30 Body mass index [BMI] 30.0-30.9, adult; N18.9 Chronic kidney disease, unspecified; R29.6 Repeated falls; R50.9 Fever, unspecified; R20.2 Paresthesia of skin
CPT/HCPCS: 36415; 36600; 70450-TC; 70490-TC; 70551-TC; 71045-TC; 71250-TC; 73610-TC; 73630-TC; 76700-TC; 80048-TC; 80053-TC; 80061-TC; 80202-TC; 81001; 82570-TC; 82803-TC; 82962-TC; 83735-TC; 83880; 84100-TC; 84300-TC; 84439-TC; 84443-TC; 84484-TC; 85025-TC; 85730-TC; 86704; 86705; 86706; 86803; 87040-TC; 87340; 90935-TC; 92526; 92611-TC; 93307-TC; 93970-TC; 94799-TC; 97116-TC; 97530-TC; A4216; A4223; C1750; C1757; C1769; C1894; C9803; G0378; J0360; J0690; J0692; J1644; J1815; J1940; J2704; J3010; J3370; J3490; J7030; J7040; J7050; J7060; P9047; Q9966

== ENCOUNTER 2022-07-16 13:48 | Inpatient (IN) | payer OTHER ==
[~2022-07-16] VITALS: Ht 167.6 cm; Wt 81.6 kg
[~2022-07-16 13:48] MED LIST: ATOR10TA PO; BRIM5DRO3 EACHEYE; FURO20TA4 PO; GLIP5TAB13 PO; HYDR-4077 PO; ISOS20TA8 PO; MELO-107 PO; METO50TA7 PO; TAMS-12 PO; TIMO5DRO18 EACHEYE
[2022-07-16 14:27] LABS: BASOPHILS % (AUTO) 0.4 % (0.0-2.0); EOSINOPHILS % (AUTO) 6.7 % (0.0-6.0); HEMATOCRIT 35 % (39-51); HEMOGLOBIN 11.1 g/dL (13.5-17.5); LYMPHOCYTES # (AUTO) 2.6 K/uL (0.8-4.8); LYMPHOCYTES % (AUTO) 31.3 % (20.0-44.0); MEAN CORPUSCULAR HGB CONC 32 g/dl (31.0-36.0); MEAN CORPUSCULAR VOLUME 90 fL (80-96); MONOCYTES # (AUTO) 0.6 K/uL (0.1-1.30); MONOCYTES % (AUTO) 7.7 % (2.0-12.0); NEUTROPHILS # (AUTO) 4.5 K/uL (1.8-8.9); NEUTROPHILS % (AUTO) 53.9 % (43.0-81.0); PLATELET COUNT (AUTO) 304 K/uL (150-450); RED BLOOD CELL COUNT(AUTO) 3.83 MIL/uL (4.5-6.0); WHITE BLOOD COUNT (AUTO) 8.2 K/uL (4.3-11.0)
[2022-07-16 14:51] LABS: ALANINE AMINOTRANSFERASE 28 U/L (12-78); ALBUMIN 2.1 g/dL (3.4-5.0); ALKALINE PHOSPHATASE 149 U/L (46-116); ASPARTATE AMINOTRANSFERASE 24 U/L (15-37); BILIRUBIN,DIRECT 0.1 mg/dL (0.0-0.2); BILIRUBIN,TOTAL 0.1 mg/dL (0.2-1.0); CALCIUM, SERUM 9.3 mg/dL (8.5-10.1); CARBON DIOXIDE 28 mmol/L (21-32); CHLORIDE 105 mmol/L (98-107); CREATININE 3.9 mg/dL (0.6-1.3); GLUCOSE 138 mg/dL (74-106); POTASSIUM 4.5 mmol/L (3.5-5.1); SODIUM SERUM 141 mmol/L (136-145); TOTAL PROTEIN, SERUM 7.5 g/dL (6.4-8.2); UREA NITROGEN, BLOOD 33 mg/dL (7-18)
[2022-07-16] MEDS ORDERED: NIFE30TA91 PO (15:39)
[2022-07-16] MEDS ORDERED: HYDR100T27 PO (15:39)
[2022-07-16] MEDS ORDERED: ISOS40TA19 PO (15:39)
[2022-07-16] MEDS ORDERED: MAG HYDROX/AL HYDROX/SIMETH 30 ML UDC PO PRN (16:30)
[2022-07-16] MEDS ORDERED: ONDANSETRON HCL/PF 4 MG/2 ML VIAL IVP PRN (16:30)
[2022-07-16] MEDS ORDERED: MAGNESIUM HYDROXIDE 30 ML UDC PO PRN (16:30)
[2022-07-16] MEDS ORDERED: Z GUARD REMEDY 4 OZ OINT TP PRN (16:30)
[2022-07-16] MEDS ORDERED: DEXTROSE 50%-WATER 50 ML DISP.SYRIN IV PRN (16:30)
[2022-07-16 18:05] VITALS: BP 163/96
[2022-07-16] MEDS: BLOOD SUGAR DIAGNOSTIC 1 EACH STRIP VI SCH ×2 (18:36→22:11)
[2022-07-16] MEDS: ISOSORBIDE DINITRATE (20MG) 20 MG TABLET PO SCH (18:36)
[2022-07-16] MEDS: INSULIN REGULAR, HUMAN 100 UNIT/ML 3 ML VIAL SQ PRN (18:37)
[2022-07-16 20:00] VITALS: BP 133/66
[2022-07-16] MEDS: TIMOLOL 0.5% SOLN OPHTH 5 ML BOTTLE EACHEYE SCH (20:43)
[2022-07-16] MEDS: TAMSULOSIN 0.4 MG CAP.SR.24H PO SCH (22:11)
[2022-07-16] MEDS: ACETAMINOPHEN 325 MG TABLET PO PRN (22:11)
[2022-07-16] MEDS: *INSULIN REGULAR(HUMULIN R)HUM 100 UNIT/ML VIAL SQ PRN (22:26)
[2022-07-17] VITALS (7 sets, daily range): BP systolic 107–166; BP diastolic 55–83
[2022-07-17 06:28] LABS: BASOPHILS % (AUTO) 0.4 % (0.0-2.0); EOSINOPHILS % (AUTO) 5.8 % (0.0-6.0); HEMATOCRIT 29 % (39-51); HEMOGLOBIN 9.5 g/dL (13.5-17.5); LYMPHOCYTES # (AUTO) 3.1 K/uL (0.8-4.8); LYMPHOCYTES % (AUTO) 35.6 % (20.0-44.0); MEAN CORPUSCULAR HGB CONC 33 g/dl (31.0-36.0); MEAN CORPUSCULAR VOLUME 89 fL (80-96); MONOCYTES # (AUTO) 0.8 K/uL (0.1-1.30); MONOCYTES % (AUTO) 9.1 % (2.0-12.0); NEUTROPHILS # (AUTO) 4.3 K/uL (1.8-8.9); NEUTROPHILS % (AUTO) 49.1 % (43.0-81.0); PLATELET COUNT (AUTO) 251 K/uL (150-450); RED BLOOD CELL COUNT(AUTO) 3.25 MIL/uL (4.5-6.0); WHITE BLOOD COUNT (AUTO) 8.8 K/uL (4.3-11.0)
[2022-07-17] MEDS: INSULIN REGULAR, HUMAN 100 UNIT/ML 3 ML VIAL SQ PRN ×2 (06:37→17:42)
[2022-07-17] MEDS: BLOOD SUGAR DIAGNOSTIC 1 EACH STRIP VI SCH ×4 (06:37→21:17)
[2022-07-17 07:03] LABS: CALCIUM, SERUM 8.7 mg/dL (8.5-10.1); CARBON DIOXIDE 25 mmol/L (21-32); CHLORIDE 105 mmol/L (98-107); CREATININE 4.1 mg/dL (0.6-1.3); GLUCOSE 91 mg/dL (74-106); MAGNESIUM 2.1 mg/dL (1.8-2.4); PHOSPHORUS 5.4 mg/dL (2.5-4.9); POTASSIUM 4.9 mmol/L (3.5-5.1); SODIUM SERUM 138 mmol/L (136-145); UREA NITROGEN, BLOOD 40 mg/dL (7-18)
[2022-07-17] MEDS: NIFEdipine XL (30MG) 30 MG TAB PO SCH (09:09)
[2022-07-17] MEDS: ISOSORBIDE DINITRATE (20MG) 20 MG TABLET PO SCH ×2 (09:10→17:37)
[2022-07-17] MEDS: TIMOLOL 0.5% SOLN OPHTH 5 ML BOTTLE EACHEYE SCH ×2 (09:10→17:38)
[2022-07-17] MEDS ORDERED: HEPARIN SODIUM, PORCINE 5000 UNITS/1 ML VIAL IV ONE (16:30)
[2022-07-17] MEDS: ACETAMINOPHEN 325 MG TABLET PO PRN (17:37)
[2022-07-17] MEDS: HEPARIN INFUSION/D5W 500 ML IV PRN (18:59)
[2022-07-17] MEDS: TAMSULOSIN 0.4 MG CAP.SR.24H PO SCH (21:16)
[2022-07-17] MEDS: *INSULIN REGULAR(HUMULIN R)HUM 100 UNIT/ML VIAL SQ PRN (21:21)
[2022-07-18] VITALS: BP_SYST 106; BP_DIAS 53; BP_DIAS 55
[2022-07-18 04:00] VITALS: BP 137/69
[2022-07-18 06:12] LABS: BASOPHILS % (AUTO) 0.4 % (0.0-2.0); EOSINOPHILS % (AUTO) 7.2 % (0.0-6.0); HEMATOCRIT 28 % (39-51); HEMOGLOBIN 9.3 g/dL (13.5-17.5); LYMPHOCYTES # (AUTO) 3.3 K/uL (0.8-4.8); LYMPHOCYTES % (AUTO) 40.1 % (20.0-44.0); MEAN CORPUSCULAR HGB CONC 33 g/dl (31.0-36.0); MEAN CORPUSCULAR VOLUME 89 fL (80-96); MONOCYTES # (AUTO) 0.6 K/uL (0.1-1.30); MONOCYTES % (AUTO) 7.2 % (2.0-12.0); NEUTROPHILS # (AUTO) 3.7 K/uL (1.8-8.9); NEUTROPHILS % (AUTO) 45.1 % (43.0-81.0); PLATELET COUNT (AUTO) 255 K/uL (150-450); RED BLOOD CELL COUNT(AUTO) 3.16 MIL/uL (4.5-6.0); WHITE BLOOD COUNT (AUTO) 8.2 K/uL (4.3-11.0)
[2022-07-18 06:25] LABS: BILIRUBIN,URINE NEGATIVE (NEGATIVE); COLOR,URINE YELLOW (YELLOW); LEUKOCYTE ESTERASE ,URINE NEGATIVE (NEGATIVE); NITRITE, URINE NEGATIVE (NEGATIVE); PROTEIN,URINE 3+ mg/dl (NEGATIVE); UGLUCOSE 1+ mg/dL (NEGATIVE); UROBILINOGEN,URINE 0.2 EU/dL (0.2)
[2022-07-18] MEDS: INSULIN REGULAR, HUMAN 100 UNIT/ML 3 ML VIAL SQ PRN ×3 (06:37→16:52)
[2022-07-18] MEDS: BLOOD SUGAR DIAGNOSTIC 1 EACH STRIP VI SCH ×4 (06:37→21:14)
[2022-07-18 06:46] LABS: RBC,URINE 0-2 /HPF (0-2)
[2022-07-18 06:52] LABS: BACTERIA,URINE Few /HPF (None Seen); SQUAMOUS EPITHELIAL CELL,UR Few /HPF (None Seen)
[2022-07-18 07:00] VITALS: BP 114/53
[2022-07-18 07:04] LABS: CALCIUM, SERUM 8.8 mg/dL (8.5-10.1); CARBON DIOXIDE 28 mmol/L (21-32); CHLORIDE 104 mmol/L (98-107); CREATININE 4.8 mg/dL (0.6-1.3); GLUCOSE 113 mg/dL (74-106); MAGNESIUM 2.2 mg/dL (1.8-2.4); PHOSPHORUS 6.2 mg/dL (2.5-4.9); POTASSIUM 4.8 mmol/L (3.5-5.1); SODIUM SERUM 137 mmol/L (136-145); UREA NITROGEN, BLOOD 47 mg/dL (7-18)
[2022-07-18 07:05] LABS: CREATININE, URINE 91.4 MG/DL (30.0-125.0)
[2022-07-18] MEDS: TIMOLOL 0.5% SOLN OPHTH 5 ML BOTTLE EACHEYE SCH ×2 (08:31→16:59)
[2022-07-18] MEDS: ISOSORBIDE DINITRATE (20MG) 20 MG TABLET PO SCH ×2 (08:33→17:00)
[2022-07-18] MEDS: METOPROLOL TARTRATE 50 MG TABLET PO SCH ×2 (08:34→21:14)
[2022-07-18] MEDS: NIFEdipine XL (30MG) 30 MG TAB PO SCH (08:34)
[2022-07-18] MEDS ORDERED: IV NS 0.9% 500 ML IV PRN (10:00)
[2022-07-18] MEDS ORDERED: METOPROLOL TARTRATE INJ 5 MG/5 ML AMPUL IVP PRN (10:00)
[2022-07-18] MEDS ORDERED: NITROGLYCERIN 0.4 MG/TAB BOTTLE SL ONE (10:00)
[2022-07-18] MEDS ORDERED: NITROGLYCERIN 0.4 MG/TAB BOTTLE ONE ×2 (10:42→10:51)
[2022-07-18] MEDS ORDERED: METOPROLOL TARTRATE INJ 5 MG/5 ML AMPUL ONE ×2 (10:43→10:51)
[2022-07-18] MEDS ORDERED: IOHEXOL-350 100 ML VIAL IV ONE (10:51)
[2022-07-18] MEDS ORDERED: CT SWABBABLE VALVE TRANS SET 1 EA INFUS.SET MC ONE (10:51)
[2022-07-18] MEDS ORDERED: IV NS 0.9% 250 ML IV ONE (10:52)
[2022-07-18 12:00] VITALS: BP 154/77
[2022-07-18] MEDS: HEPARIN INFUSION/D5W 500 ML IV PRN (13:56)
[2022-07-18 20:00] VITALS: BP 138/66
[2022-07-18 20:01] LABS: BASOPHILS % (AUTO) 0.4 % (0.0-2.0); EOSINOPHILS % (AUTO) 7.1 % (0.0-6.0); HEMATOCRIT 29 % (39-51); HEMOGLOBIN 9.4 g/dL (13.5-17.5); LYMPHOCYTES # (AUTO) 2.1 K/uL (0.8-4.8); LYMPHOCYTES % (AUTO) 26.4 % (20.0-44.0); MEAN CORPUSCULAR HGB CONC 33 g/dl (31.0-36.0); MEAN CORPUSCULAR VOLUME 90 fL (80-96); MONOCYTES # (AUTO) 0.7 K/uL (0.1-1.30); MONOCYTES % (AUTO) 8.7 % (2.0-12.0); NEUTROPHILS # (AUTO) 4.5 K/uL (1.8-8.9); NEUTROPHILS % (AUTO) 57.4 % (43.0-81.0); PLATELET COUNT (AUTO) 268 K/uL (150-450); RED BLOOD CELL COUNT(AUTO) 3.19 MIL/uL (4.5-6.0); WHITE BLOOD COUNT (AUTO) 7.8 K/uL (4.3-11.0)
[2022-07-18 20:32] LABS: THYROID STIMULATING HORMONE 3.281 uIU/mL (0.358-3.74)
[2022-07-18] MEDS: TAMSULOSIN 0.4 MG CAP.SR.24H PO SCH (21:14)
[2022-07-18] MEDS: *INSULIN REGULAR(HUMULIN R)HUM 100 UNIT/ML VIAL SQ PRN (21:25)
[2022-07-19] VITALS: BP 145/69
[2022-07-19 05:48] LABS: BASOPHILS # (AUTO) 0.1 K/uL (0.0-0.2); BASOPHILS % (AUTO) 0.7 % (0.0-2.0); EOSINOPHILS % (AUTO) 6.4 % (0.0-6.0); HEMATOCRIT 29 % (39-51); HEMOGLOBIN 9.3 g/dL (13.5-17.5); LYMPHOCYTES % (AUTO) 34.3 % (20.0-44.0); MEAN CORPUSCULAR HGB CONC 33 g/dl (31.0-36.0); MEAN CORPUSCULAR VOLUME 90 fL (80-96); MONOCYTES # (AUTO) 0.7 K/uL (0.1-1.30); MONOCYTES % (AUTO) 7.9 % (2.0-12.0); NEUTROPHILS # (AUTO) 4.5 K/uL (1.8-8.9); NEUTROPHILS % (AUTO) 50.7 % (43.0-81.0); PLATELET COUNT (AUTO) 252 K/uL (150-450); RED BLOOD CELL COUNT(AUTO) 3.17 MIL/uL (4.5-6.0); WHITE BLOOD COUNT (AUTO) 8.8 K/uL (4.3-11.0)
[2022-07-19 06:24] LABS: CALCIUM, SERUM 8.5 mg/dL (8.5-10.1); CARBON DIOXIDE 25 mmol/L (21-32); CHLORIDE 105 mmol/L (98-107); GLUCOSE 102 mg/dL (74-106); PHOSPHORUS 5.4 mg/dL (2.5-4.9); POTASSIUM 4.6 mmol/L (3.5-5.1); SODIUM SERUM 136 mmol/L (136-145); UREA NITROGEN, BLOOD 32 mg/dL (7-18)
[2022-07-19] MEDS: BLOOD SUGAR DIAGNOSTIC 1 EACH STRIP VI SCH ×3 (06:36→17:28)
[2022-07-19 07:07] LABS: IMMUNOGLOBULIN A, SERUM 430 mg/dL (61-437); IMMUNOGLOBULIN G, SERUM 1173 mg/dL (603-1613); IMMUNOGLOBULIN M, SERUM 75 mg/dL (15-143)
[2022-07-19] MEDS: NIFEdipine XL (30MG) 30 MG TAB PO SCH (10:10)
[2022-07-19] MEDS: ISOSORBIDE DINITRATE (20MG) 20 MG TABLET PO SCH ×2 (10:11→17:26)
[2022-07-19] MEDS: METOPROLOL TARTRATE 50 MG TABLET PO SCH (10:11)
[2022-07-19] MEDS: TIMOLOL 0.5% SOLN OPHTH 5 ML BOTTLE EACHEYE SCH ×2 (10:12→17:28)
[2022-07-19] MEDS: INSULIN REGULAR, HUMAN 100 UNIT/ML 3 ML VIAL SQ PRN ×2 (12:42→17:30)
[2022-07-19 14:07] LABS: *SPE A/G RATIO 0.6 (0.7-1.7); *SPE ALPHA-1-GLOBULIN 0.2 g/dL (0.0-0.4); *SPE ALPHA-2-GLOBULIN 1.2 g/dL (0.4-1.0); *SPE M-SPIKE Not Observed g/dL (Not Observed)
[2022-07-19] MEDS ORDERED: CYANOCOBALAMIN 1,000 MCG/ML VIAL SQ SCH (15:00)
[2022-07-19] MEDS ORDERED: ISOS40TA19 PO (15:23)
[2022-07-19] MEDS ORDERED: APIX5TAB PO (15:23)
[2022-07-19] MEDS ORDERED: HYDR100T27 PO (15:23)
[2022-07-19] MEDS ORDERED: NIFE30TA91 PO (15:23)
[2022-07-19] MEDS ORDERED: MECO10005 PO (15:23)
[2022-07-19] MEDS ORDERED: APIXABAN 5 MG TABLET PO SCH (17:00)
[2022-07-19 17:26] VITALS: BP 129/76
== END 2022-07-19 18:30 | disposition home or self-care (01) | DRG 73 ==
LOC: ER 13:51 → TELE 17:04
PROVIDERS: ADMIT Internal Medicine; ATTEND Nurse Practitioner Family
PROC: 5A1D70Z Performance of Urinary Filtration, Intermittent, Less than 6 Hours Per Day (ICD-10-PCS; principal; 2022-07-18)
DX: G90.8 Other disorders of autonomic nervous system (principal); N18.6 End stage renal disease; I12.0 Hypertensive chronic kidney disease with stage 5 chronic kidney disease or end stage renal disease; I82.512 Chronic embolism and thrombosis of left femoral vein; I47.1 Supraventricular tachycardia; I82.612 Acute embolism and thrombosis of superficial veins of left upper extremity; Z99.2 Dependence on renal dialysis; E11.40 Type 2 diabetes mellitus with diabetic neuropathy, unspecified; E11.22 Type 2 diabetes mellitus with diabetic chronic kidney disease; I16.0 Hypertensive urgency; Z98.890 Other specified postprocedural states; Z88.8 Allergy status to other drugs, medicaments and biological substances; Z79.84 Long term (current) use of oral hypoglycemic drugs; Z79.899 Other long term (current) drug therapy; I25.10 Atherosclerotic heart disease of native coronary artery without angina pectoris; M89.8X9 Other specified disorders of bone, unspecified site; D64.9 Anemia, unspecified; I27.20 Pulmonary hypertension, unspecified; E78.5 Hyperlipidemia, unspecified; I70.0 Atherosclerosis of aorta; Z87.891 Personal history of nicotine dependence; D63.8 Anemia in other chronic diseases classified elsewhere
CPT/HCPCS: 36415; 70450-TC; 71045-TC; 75574; 76770-TC; 78582; 80048-TC; 80076-TC; 81001; 82570-TC; 82607-TC; 82728-TC; 82784; 82962-TC; 83540-TC; 83605-TC; 83735-TC; 84100-TC; 84155; 84165; 84300-TC; 84443-TC; 84484-TC; 85025-TC; 85730-TC; 86334; 86850-TC; 87081-TC; 87086-TC; 90935-TC; 93880-TC; 93971-TC; A4223; A9540; A9567; C9803; G0378; J1644; J1815; J3420; J3490; J7030; J7050; Q9967

== ENCOUNTER 2022-08-11 07:23 | Inpatient (IN) | payer OTHER ==
[~2022-08-11] VITALS: Ht 167.6 cm; Wt 83.9 kg
[~2022-08-11 07:23] MED LIST changes: +APIX5TAB PO; -ATOR10TA PO; -FURO20TA4 PO; -HYDR-4077 PO; +HYDR100T27 PO; -ISOS20TA8 PO; +ISOS40TA19 PO; +MECO10005 PO; -MELO-107 PO; -METO50TA7 PO; +NIFE30TA91 PO
--- NOTE | 2022-08-11 08:00 | NUR ---
Received pt 76 YRS MALE CAME FROM HOME CAME ACCOPANY BY SELVIN C/O LT KNEE PAIN AT 4 AM TODY
[2022-08-11 08:14] LABS: BASOPHILS % (AUTO) 0.4 % (0.0-2.0); EOSINOPHILS % (AUTO) 2.4 % (0.0-6.0); HEMATOCRIT 41 % (39-51); HEMOGLOBIN 13.2 g/dL (13.5-17.5); LYMPHOCYTES # (AUTO) 1.4 K/uL (0.8-4.8); LYMPHOCYTES % (AUTO) 14.2 % (20.0-44.0); MEAN CORPUSCULAR HGB CONC 32 g/dl (31.0-36.0); MEAN CORPUSCULAR VOLUME 92 fL (80-96); MONOCYTES # (AUTO) 0.9 K/uL (0.1-1.30); MONOCYTES % (AUTO) 8.9 % (2.0-12.0); NEUTROPHILS # (AUTO) 7.5 K/uL (1.8-8.9); NEUTROPHILS % (AUTO) 74.1 % (43.0-81.0); PLATELET COUNT (AUTO) 238 K/uL (150-450); RED BLOOD CELL COUNT(AUTO) 4.43 MIL/uL (4.5-6.0); WHITE BLOOD COUNT (AUTO) 10.2 K/uL (4.3-11.0)
--- NOTE | 2022-08-11 08:15 | NUR ---
SEEN BY DR. QUINTERO
[2022-08-11 08:23] LABS: CALCIUM, SERUM 9.7 mg/dL (8.5-10.1); CARBON DIOXIDE 29 mmol/L (21-32); CHLORIDE 105 mmol/L (98-107); CREATININE 3.6 mg/dL (0.6-1.3); GLUCOSE 153 mg/dL (74-106); MAGNESIUM 2.2 mg/dL (1.8-2.4); SODIUM SERUM 138 mmol/L (136-145); UREA NITROGEN, BLOOD 30 mg/dL (7-18)
--- NOTE | 2022-08-11 08:37 | NUR ---
MOVE SHEET SUBMITTED.
--- NOTE | 2022-08-11 09:01 | NUR ---
COVID SWAB COLLECTED AND SENT TO LAB
[2022-08-11] MEDS ORDERED: HYDROCODONE/APAP 5/325MG TABLET PO ONE (10:00)
--- NOTE | 2022-08-11 10:25 | NUR ---
COVID SWAB SENT TO LAB
[2022-08-11] MEDS ORDERED: HYDROCODONE/APAP 5/325MG TABLET ONE (10:29)
--- NOTE | 2022-08-11 11:10 | NUR ---
STACIA MONTALVO [phone] AND CONSTANCE ZIMMERMAN SON
--- NOTE | 2022-08-11 12:00 | NUR ---
PT TOLORATED PO INTACK
--- NOTE | 2022-08-11 13:02 | NUR ---
[facility]
--- NOTE | 2022-08-11 15:05 | NUR ---
SELVIN CALLED CONDITION UP DATE
--- NOTE | 2022-08-11 15:38 | NUR ---
HAND OFF ROBSON PATRICK TO ROOM 315-2 VIA YOAN STABLE VS FOR PT
--- NOTE | 2022-08-11 16:15 | NUR ---
MS EXCELSIOR MACHINE TENDER NOTE (DAYSHIFT) Patient arrived via gurney from ED at 16:10 hours, alert, oriented x 4, on room air, and attempted to walk from rclimax in blankenship to bed 2 of Room 315. Patient unable to walk more than three steeps and then required wheeel chair due to pain in both knees. BP high. Will contact admitting hospitalist to obtain anti-hypertensive medication orders. Safety precautions placed and explained to patient and family in Bruneian. Skin examined from head to toes and found to be intact throughout pt's whole body. Oriented patient to room and bed controls, telephone, call beel/light system. Introduced patient and family to staff. Bed in lowest position with bed brakes locked and three bed side rails up and call belll within patient's reach. Will continue to care for patient and monitor per hospitalist MD's POC.
[2022-08-11] MEDS ORDERED: MAGNESIUM HYDROXIDE 30 ML UDC PO PRN (17:30)
[2022-08-11] MEDS ORDERED: ONDANSETRON HCL/PF 4 MG/2 ML VIAL IVP PRN (17:30)
[2022-08-11] MEDS ORDERED: MAG HYDROX/AL HYDROX/SIMETH 30 ML UDC PO PRN (17:30)
[2022-08-11] MEDS ORDERED: Z GUARD REMEDY 4 OZ OINT TP PRN (17:30)
[2022-08-11] MEDS ORDERED: ZOLPIDEM TARTRATE 5 MG TABLET PO PRN (17:30)
[2022-08-11 18:00] VITALS: BP 191/92
[2022-08-11] MEDS ORDERED: hydrALAZINE HCL 50 MG TABLET PO ONE (18:30)
[2022-08-11] MEDS ORDERED: hydrALAZINE HCL 50 MG TABLET PO SCH (18:30)
[2022-08-11] MEDS ORDERED: ISOSORBIDE DINITRATE (20MG) 20 MG TABLET PO ONE (18:30)
--- NOTE | 2022-08-11 18:57 | NUR ---
MS RN CLOSING NOTE (DAYSHIFT) Patient's AN=591 mg/dL before dinner. Ate about 50% of C CHO diet dinner. Patient continues to be alert and oriented x 4. No symptoms of distress nor pain at the moment. Will endorse to weekend caregiver nurse for MARIA FERNANDA.
--- NOTE | 2022-08-11 19:30 | NUR ---
MS RN OPENING NOTES RECEIVED PT RESTING IN BED, EASILY AROUSABLE. A/O X4, SALVADOREAN-SPEAKING BUT UNDERSTANDS SOME K[place]WAHILI. ON RA WITH NO S/S OF SOB OR DISTRESS. C/O R KNEE PAIN WHEN AMBULATING AND PRESSED WITH FINGER, NO PAIN MEDS REQUESTED AT THIS TIME, PT JUST WANTS TO REST. R KNEE A LITTLE WARM TO TOUCH, NO SWELLING NOTED. B/L LEGS ALSO WITH NO SWELLING NOTED. IV ACCESS RAC #20G SL, PATENT, INTACT, FLUSHING WELL. SAFETY PRECAUTIONS IN PLACE: BED LOCKED AND IN LOW POSITION, SIDE RAILS UP X2, BED ALARM ON, CALL LIGHT AND TRAY TABLE WITHIN REACH. WILL CONTINUE TO MONITOR AND ASSIST.
[2022-08-11 20:00] VITALS: BP 156/80
[2022-08-11] MEDS: TAMSULOSIN 0.4 MG CAP.SR.24H PO SCH (21:39)
[2022-08-11] MEDS: APIXABAN 2.5 MG TABLET PO SCH (21:40)
--- NOTE | 2022-08-12 00:01 | NUR ---
RN NOTE INFORMATION TECHNOLOGY DIRECTOR LEONARD ESPAÑA NOTIFIED FOR CLARIFICATION OF DR AGARWAL'S ORDERS FOR IV HYDRATION FOR PATIENT SEEN IN HER NOTES. CADY ESPAÑA DISAGREED WITH ORDERS STATING THAT "IT DOESN'T MAKE SENSE" FOR THIS PATIENT SINCE HE HAS HEMODIALYSIS. NO IV FLUID HYDRATION ORDERED AT THIS TIME. CONFIRMED RECEIPT.
[2022-08-12 05:39] LABS: BASOPHILS % (AUTO) 0.5 % (0.0-2.0); EOSINOPHILS % (AUTO) 1.7 % (0.0-6.0); HEMATOCRIT 34 % (39-51); LYMPHOCYTES # (AUTO) 2.2 K/uL (0.8-4.8); LYMPHOCYTES % (AUTO) 26.1 % (20.0-44.0); MEAN CORPUSCULAR HGB CONC 32 g/dl (31.0-36.0); MEAN CORPUSCULAR VOLUME 92 fL (80-96); MONOCYTES # (AUTO) 1.1 K/uL (0.1-1.30); MONOCYTES % (AUTO) 12.6 % (2.0-12.0); NEUTROPHILS # (AUTO) 4.9 K/uL (1.8-8.9); NEUTROPHILS % (AUTO) 59.1 % (43.0-81.0); PLATELET COUNT (AUTO) 203 K/uL (150-450); RED BLOOD CELL COUNT(AUTO) 3.68 MIL/uL (4.5-6.0); WHITE BLOOD COUNT (AUTO) 8.4 K/uL (4.3-11.0)
[2022-08-12 05:59] LABS: CALCIUM, SERUM 8.6 mg/dL (8.5-10.1); CARBON DIOXIDE 22 mmol/L (21-32); CHLORIDE 108 mmol/L (98-107); CREATININE 4.3 mg/dL (0.6-1.3); GLUCOSE 125 mg/dL (74-106); MAGNESIUM 2.1 mg/dL (1.8-2.4); PHOSPHORUS 4.7 mg/dL (2.5-4.9); POTASSIUM 4.8 mmol/L (3.5-5.1); SODIUM SERUM 138 mmol/L (136-145); UREA NITROGEN, BLOOD 39 mg/dL (7-18)
[2022-08-12 06:11] LABS: THYROID STIMULATING HORMONE 3.403 uIU/mL (0.358-3.74)
[2022-08-12] MEDS: HYDROCODONE/APAP 5/325MG TABLET PO PRN ×2 (06:21→19:40)
[2022-08-12] MEDS: BLOOD SUGAR DIAGNOSTIC 1 EACH STRIP IN SCH ×4 (06:41→21:57)
[2022-08-12] MEDS: INSULIN REGULAR, HUMAN 100 UNIT/ML 3 ML VIAL SQ PRN ×3 (06:44→17:57)
--- NOTE | 2022-08-12 06:51 | NUR ---
MS RN CLOSING NOTES PT SLEEPING IN BED, EASILY AROUSABLE. A/O X4, URDU-SPEAKING BUT UNDERSTANDS SOME SYRIAC. STABLE ON RA WITH NO S/S OF SOB OR DISTRESS. C/O R KNEE PAIN AT THIS TIME, NOTIFIED WAGE HAND PATRIA AND ORDERED NORCO 5-325. GIVEN PRESCRIBED. IV ACCESS RAC #20G SL, PATENT, INTACT, FLUSHING WELL. ALL CARE PROVIDED AND MEDS TOLERATED WELL. SLEPT WELL LAST NIGHT. SAFETY PRECAUTIONS MAINTAINED: BED LOCKED AND IN LOW POSITION, SIDE RAILS UP X2, BED ALARM ON, CALL LIGHT AND TRAY TABLE WITHIN REACH. WILL CONTINUE TO MONITOR AND ASSIST.
[2022-08-12 07:00] VITALS: BP 141/76
--- NOTE | 2022-08-12 07:55 | NUR ---
MS RN OPENING NOTE (DAYSHIFT) PT SLEEPING IN BED, EASILY AROUSABLE. A/O X4, OCCITAN-SPEAKING BUT UNDERSTANDS SOME NIUEAN. STABLE ON RA WITH NO S/S OF SOB OR DISTRESS. NO C/O PAIN AT THIS TIME. IV ACCESS TO RIGHT AC #20G SL, PATENT, INTACT, FLUSHING WELL. SAFETY PRECAUTIONS MAINTAINED: BED LOCKED AND IN LOW POSITION, SIDE RAILS UP X 2, BED ALARM ON, CALL LIGHT AND TRAY TABLE WITHIN REACH. WILL CONTINUE TO MONITOR AND ASSIST PER HOSPITALIST'S POC.
[2022-08-12] MEDS: BRIMONIDINE TARTRATE OPHT SOLN 5 ML BOTTLE EACHEYE SCH ×2 (08:36→18:05)
[2022-08-12] MEDS: PANTOPRAZOLE 40 MG TABLET.DR PO SCH (08:36)
[2022-08-12] MEDS: TIMOLOL 0.5% SOLN OPHTH 5 ML BOTTLE EACHEYE SCH ×2 (08:36→18:05)
[2022-08-12] MEDS: hydrALAZINE HCL 50 MG TABLET PO SCH ×3 (08:37→18:07)
[2022-08-12] MEDS: glipiZIDE 5 MG TABLET PO SCH ×2 (08:38→18:07)
[2022-08-12] MEDS: NIFEdipine XL (30MG) 30 MG TAB PO SCH (08:39)
[2022-08-12] MEDS: ISOSORBIDE DINITRATE (20MG) 20 MG TABLET PO SCH ×2 (08:39→18:08)
[2022-08-12] MEDS: CYANOCOBALAMIN 500 MCG TABLET PO SCH (08:39)
[2022-08-12] MEDS: APIXABAN 2.5 MG TABLET PO SCH ×2 (08:40→21:39)
[2022-08-12] MEDS ORDERED: APIXABAN 5 MG TABLET PO SCH ×2 (09:00)
[2022-08-12 16:00] VITALS: BP 126/67
--- NOTE | 2022-08-12 19:06 | NUR ---
MS RN CLOSING NOTE (DAYSHIFT) Patient's BG=64 mg/dL before dinner. Ate about 50% of C CHO diet dinner. Post prandial BG = 89mg/dL, asymptomatic for hypoglycemia, alert and oriented x 4. No symptoms of distress except did c/o 7/10 pain to right knee. Marked swelling to right knee reported to Dr. Smith who ordered venous duplex to RLE for right knee swelling and pain. Given 1 tab norco PO at 18:20 hours with effective relief. Will endorse to shift mechanic nurse for MARIA FERNANDA.
--- NOTE | 2022-08-12 19:49 | NUR ---
MS RN OPENING NOTES: RECEIVED PATIENT AWAKE IN BED, BED IN LOW POSITION, CALL LIGHTS WITHIN REACH, NO COMPLAIN OF PAIN AND DISCOMFORT AT THIS TIME,ON ROOM AIR SATURATING WELL, PATIENT IS A/O X4 ABLE TO MAKE NEEDS KNOWN, COOK ISLANDER SPEAKING IV LINE AT RAC#20SL ON HD, WITH RIGHT CHEST WALL PERMCATH NO BLEEDING WAS OBSERVED, PATIENT KEPT CLEAN AND DRY ALL NEEDS MET WILL CONTINUE TO MONITOR.
[2022-08-12 20:00] VITALS: BP 123/63
[2022-08-12 20:06] VITALS: BP 123/63
[2022-08-12] MEDS: TAMSULOSIN 0.4 MG CAP.SR.24H PO SCH (21:38)
--- NOTE | 2022-08-12 21:57 | NUR ---
RN NOTES: BLOOD SUGAR-114/ NO INSULIN GIVEN PER SLIDING SCALE,
--- NOTE | 2022-08-13 06:23 | NUR ---
MS RN CLOSING NOTES: PATIENT SLEEP IN BED COMFORTABLY, BED IN LOW POSITION CALL LIGHTS WITHIN REACH, NO COMPLAIN OF PAIN AND DISCOMFORT AT THIS TIME, ON ROOM AIR SATURATING WELL, PATIENT IS A/O X4 ABLE TO MAKE NEEDS KNOWN, IV LINE AT RAC#20 SL WITH HD PERMACATH AT RIGHT CHEST NO BLEEDING WAS OBSERVED, PATIENT KEPT CLEAN AND DRY ALL NEEDS MET ENDORSE TO INCOMING SHIFT.
[2022-08-13 06:30] LABS: BASOPHILS % (AUTO) 0.3 % (0.0-2.0); EOSINOPHILS % (AUTO) 2.3 % (0.0-6.0); HEMATOCRIT 33 % (39-51); LYMPHOCYTES # (AUTO) 2.4 K/uL (0.8-4.8); LYMPHOCYTES % (AUTO) 25.3 % (20.0-44.0); MEAN CORPUSCULAR HGB CONC 33 g/dl (31.0-36.0); MEAN CORPUSCULAR VOLUME 92 fL (80-96); MONOCYTES # (AUTO) 1.2 K/uL (0.1-1.30); MONOCYTES % (AUTO) 12.4 % (2.0-12.0); NEUTROPHILS # (AUTO) 5.8 K/uL (1.8-8.9); NEUTROPHILS % (AUTO) 59.7 % (43.0-81.0); PLATELET COUNT (AUTO) 218 K/uL (150-450); RED BLOOD CELL COUNT(AUTO) 3.65 MIL/uL (4.5-6.0); WHITE BLOOD COUNT (AUTO) 9.7 K/uL (4.3-11.0)
[2022-08-13 06:45] LABS: CALCIUM, SERUM 8.8 mg/dL (8.5-10.1); CARBON DIOXIDE 24 mmol/L (21-32); CHLORIDE 105 mmol/L (98-107); CREATININE 4.8 mg/dL (0.6-1.3); GLUCOSE 56 mg/dL (74-106); MAGNESIUM 2.1 mg/dL (1.8-2.4); PHOSPHORUS 4.9 mg/dL (2.5-4.9); POTASSIUM 4.7 mmol/L (3.5-5.1); SODIUM SERUM 136 mmol/L (136-145); UREA NITROGEN, BLOOD 44 mg/dL (7-18)
[2022-08-13] MEDS: BLOOD SUGAR DIAGNOSTIC 1 EACH STRIP IN SCH ×4 (06:57→21:15)
--- NOTE | 2022-08-13 06:57 | NUR ---
RN NOTES: BLOOD SUGAR-56/ ORANGE JUICE GIVEN PLUS SUGAR PATIENT IS A/O ON SCHEDULE DIALYSIS , WILL CHECK AFTER 30 MINUTES.
--- NOTE | 2022-08-13 07:15 | NUR ---
MS RN OPENING NOTES RECEIVED PATIENT AWAKE IN BED, AOX4, UPPER SORBIAN SPEAKER. PT ON ROOM AIR BREATHING WITHOUT DIFFICULTY. IV ACCESS ON RAC G#20 SALINE LOCKED, PATENT AND FLUSHING WELL.WITH HD PERMACATH AT RIGHT CHEST. HEMODIALYSIS ON GOING WITH MEDICAL DELIVERY TECHNICIAN AT BEDSIDE. PATIENT IS COMPLAINING OF PAIN OR RIGHT KNEE BUT TOLERABLE AT THIS TIME, WILL CONTINUE TO MONITOR. SAFETY MEASURES IN PLACE: BED IN LOWEST AND LOCKED POSITION, SIDE RAILS UP X2, CALL LIGHT AND TRAY TABLE WITHIN EASY REACH. WILL CONTINUE TO MONITOR.
[2022-08-13] MEDS: PANTOPRAZOLE 40 MG TABLET.DR PO SCH (07:43)
[2022-08-13] MEDS: HYDROCODONE/APAP 5/325MG TABLET PO PRN (07:44)
--- NOTE | 2022-08-13 07:48 | NUR ---
RN NOTES - PT COMPLAINING OF RIGHT KNEE PAIN OF ABOUT 5-6/10, GIVEN NORCO 5/325 ORDERED. WILL CONTINUE TO MONITOR.
--- NOTE | 2022-08-13 07:55 | NUR ---
RN NOTES - RECHECKED BLOOD SUGAR - NOW AT 105 MG/DL - WILL CONTINUE TO MONITOR.
[2022-08-13 08:31] VITALS: BP 115/65
--- NOTE | 2022-08-13 09:40 | NUR ---
RN NOTES - HEMODIALYSIS DONE WITH 1500 FLUIDS OUT. PATIENT IS STABLE, NO BLEEDING NOTED ON PERMACATH NOTED. WILL CONTINUE TO MONITOR.
[2022-08-13] MEDS: APIXABAN 2.5 MG TABLET PO SCH ×2 (10:13→21:07)
[2022-08-13] MEDS: BRIMONIDINE TARTRATE OPHT SOLN 5 ML BOTTLE EACHEYE SCH ×2 (10:15→17:26)
[2022-08-13] MEDS: TIMOLOL 0.5% SOLN OPHTH 5 ML BOTTLE EACHEYE SCH ×2 (10:15→17:26)
[2022-08-13] MEDS: CYANOCOBALAMIN 500 MCG TABLET PO SCH (10:16)
[2022-08-13] MEDS: hydrALAZINE HCL 50 MG TABLET PO SCH ×3 (10:17→17:27)
[2022-08-13] MEDS: NIFEdipine XL (30MG) 30 MG TAB PO SCH (10:17)
[2022-08-13] MEDS: ISOSORBIDE DINITRATE (20MG) 20 MG TABLET PO SCH ×2 (10:17→17:27)
[2022-08-13] MEDS: glipiZIDE 5 MG TABLET PO SCH ×2 (10:18→17:27)
--- NOTE | 2022-08-13 10:30 | NUR ---
RN NOTES - NORCO 5/325 MG HAS BEEN STOPPED BY , CHANGED TO 10/325 MG ORDERED. WILL CONTINUE TO MONITOR.
--- NOTE | 2022-08-13 10:40 | NUR ---
BROTHER CONSTANCE CON ADDED TO CONTACTS PER DAUGHTER'S REQUEST (PRIMARY CONTACT). FAXED TO ADMITTING. ENDORSED ACCORDINGLY.
[2022-08-13] MEDS: HYDROCODONE/APAP 10/325MG TABLET PO PRN ×2 (14:50→21:19)
[2022-08-13] MEDS: DEXTROSE 50%-WATER 50 ML DISP.SYRIN IV PRN (17:02)
--- NOTE | 2022-08-13 17:45 | NUR ---
RN NOTES - SUGAR WAS 42 WHEN CHECKED AT 1652, PATIENT IS RESPONSIVE, GAVE ORANGE JUICE AND GAVE D50/50 ORDERED, INFORMED GLORIA AGARWAL, SUGAR WAS RECHECKED AND WENT UP TO 121, NO COVERAGE NEEDED. PATIENT HAD HIS DINNER WELL. WILL CONTINUE TO MONITOR.
--- NOTE | 2022-08-13 18:43 | NUR ---
MS RN CLOSING NOTES PATIENT AWAKE IN BED, AOX4, SOUTH AFRICAN SPEAKER. STILL ON ROOM AIR BREATHING WITHOUT DIFFICULTY. IV ACCESS ON RAC G#20 SALINE LOCKED IS STILL PATENT AND FLUSHING WELL. S/P HD THIS MORNING, PERMACATH ON RCW INTACT WITH DRESSING C/D/I. R KNEE PAIN IS CONTROLLED AT THIS MOMENT. ALL DUE MEDS GIVEN, ALL NEEDS MET, KEPT PATIENT SAFE. SAFETY MEASURES MAINTAINED: BED IN LOWEST AND LOCKED POSITION, SIDE RAILS UP X2, CALL LIGHT AND TRAY TABLE WITHIN EASY REACH. WILL ENDORSE TO ENTRY LEVEL SALES CONSULTANT NURSE.
--- NOTE | 2022-08-13 19:15 | NUR ---
RN opening notes Pt is laying in bed comfortably watching TV with daughter at the bedside. Pt is alert and orientedX4. Pt speaks Montenegrin and able to make needs known. On room air. No SOB. No S/S of distress noted. R chest wall permacath is clean, intact and patent. IV site at RAC# 20 is clean, intact and flushes well. Safety precautions is maintianed. Bed at low position, brakes locked, side rails upX2, hob elevated, bed alarm is on and call light is within reach. Will continue to monitor.
[2022-08-13 20:00] VITALS: BP 122/65
[2022-08-13 20:12] VITALS: BP 122/65
[2022-08-13] MEDS: TAMSULOSIN 0.4 MG CAP.SR.24H PO SCH (21:08)
[2022-08-13] MEDS: INSULIN REGULAR, HUMAN 100 UNIT/ML 3 ML VIAL SQ PRN (21:15)
--- NOTE | 2022-08-13 21:19 | NUR ---
RN notes Pt is complaining of R knee pain and requesting pain med. administered norco 10/1 tab/po as ordered for pain. VS is stable. Safety precautions is maintained. will continue to monitor.
[2022-08-14 06:37] LABS: BASOPHILS % (AUTO) 0.3 % (0.0-2.0); EOSINOPHILS % (AUTO) 0.2 % (0.0-6.0); HEMATOCRIT 37 % (39-51); LYMPHOCYTES # (AUTO) 1.5 K/uL (0.8-4.8); LYMPHOCYTES % (AUTO) 16.7 % (20.0-44.0); MEAN CORPUSCULAR HGB CONC 33 g/dl (31.0-36.0); MEAN CORPUSCULAR VOLUME 91 fL (80-96); MONOCYTES # (AUTO) 1.3 K/uL (0.1-1.30); MONOCYTES % (AUTO) 15.3 % (2.0-12.0); NEUTROPHILS # (AUTO) 5.9 K/uL (1.8-8.9); NEUTROPHILS % (AUTO) 67.5 % (43.0-81.0); PLATELET COUNT (AUTO) 243 K/uL (150-450); RED BLOOD CELL COUNT(AUTO) 4.03 MIL/uL (4.5-6.0); WHITE BLOOD COUNT (AUTO) 8.8 K/uL (4.3-11.0)
--- NOTE | 2022-08-14 06:50 | NUR ---
RN notes Pt's blood sugar 51. D50 was given. Apple juice was given. Pt is alert and orientedX4 and able to make needs known. Will recheck in 30 minutes.
[2022-08-14 06:54] LABS: CALCIUM, SERUM 8.9 mg/dL (8.5-10.1); CARBON DIOXIDE 23 mmol/L (21-32); CHLORIDE 99 mmol/L (98-107); CREATININE 4.8 mg/dL (0.6-1.3); MAGNESIUM 2.2 mg/dL (1.8-2.4); POTASSIUM 4.6 mmol/L (3.5-5.1); SODIUM SERUM 132 mmol/L (136-145); UREA NITROGEN, BLOOD 36 mg/dL (7-18)
[2022-08-14] MEDS: BLOOD SUGAR DIAGNOSTIC 1 EACH STRIP IN SCH ×4 (06:58→22:06)
[2022-08-14] MEDS: DEXTROSE 50%-WATER 50 ML DISP.SYRIN IV PRN ×3 (07:00→22:06)
[2022-08-14 07:16] LABS: GLUCOSE 49 mg/dL (74-106)
--- NOTE | 2022-08-14 07:16 | NUR ---
RN notes Received a critical lab for blood sugar 49. D50 was given with apple juice. Pt is alert and orientedX4. Will endorse to am nurse.
--- NOTE | 2022-08-14 07:26 | NUR ---
RN notes Pt's blood sugar 128.
[2022-08-14 07:30] VITALS: BP 131/73
--- NOTE | 2022-08-14 07:30 | NUR ---
RN closing notes Pt is sitting in bed comfortably eating breakfast. Pt is alert and orientedX4. Pt speaks Serbian and able to make needs known. On room air. No SOB. No S/S of distress noted. VS is stable. Routine meds were given as ordered. R chest wall permacath is clean, intact and patent. IV site at RAC# 20 is clean, intact and flushes well. Kept Pt clean, dry and comfortable. Safety precautions is maintianed. Bed at low position, brakes locked, side rails upX2, hob elevated, bed alarm is on and call light is within reach. Will endorse to am nurse for MARIA FERNANDA.
--- NOTE | 2022-08-14 07:30 | NUR ---
MS RN OPENING NOTES RECEIVED PT RESTING IN BED, AO X4, T[place] SPEAKING, LYING IN SEMI GIL'S POSITION. PATIENT IN NO DISTRESS, DENIES ANY PAIN. ON ROOM AIR, NO SOB/DIFFICULTY BREATHING. V/S STABLE. IV ACCESS ON RAC 20G SL. SUBCLAVIAN PERMACATH ON RIGHT CHEST. SAFETY PRECAUTIONS MAINTAINED. SIDE RAILS UP X2, CALL LIGHT WITHIN REACH. NO S/SX OF DISTRESS. WILL CONTINUE TO MONITOR.
[2022-08-14] MEDS: CYANOCOBALAMIN 500 MCG TABLET PO SCH (08:29)
[2022-08-14] MEDS: PANTOPRAZOLE 40 MG TABLET.DR PO SCH (08:29)
[2022-08-14] MEDS: glipiZIDE 5 MG TABLET PO SCH ×2 (08:30→17:00)
[2022-08-14] MEDS: APIXABAN 2.5 MG TABLET PO SCH ×2 (08:31→20:10)
[2022-08-14] MEDS: ISOSORBIDE DINITRATE (20MG) 20 MG TABLET PO SCH ×2 (08:34→17:00)
[2022-08-14] MEDS: hydrALAZINE HCL 50 MG TABLET PO SCH ×3 (08:35→17:00)
[2022-08-14] MEDS: NIFEdipine XL (30MG) 30 MG TAB PO SCH (08:35)
[2022-08-14] MEDS: BRIMONIDINE TARTRATE OPHT SOLN 5 ML BOTTLE EACHEYE SCH ×2 (09:06→18:18)
[2022-08-14] MEDS: TIMOLOL 0.5% SOLN OPHTH 5 ML BOTTLE EACHEYE SCH ×2 (09:06→18:17)
--- NOTE | 2022-08-14 12:20 | NUR ---
RN NOTES ACCUCHECKS DONE AT 1210. PT BS RESULT WAS 38. GAVE 2 CUPS OF ORANGE JUICE. RECHECKED BLOOD SUGAR. WENT UP TO 41. D50 BEING GIVEN. MD INFORMED. PT ASYMPTOMATIC, DENIES DIZZINESS/LIGHTHEADEDNESS. WILL RECHECK AND CONTINUE TO MONITOR.
--- NOTE | 2022-08-14 13:17 | NUR ---
RN NOTES RECHECKED BLOOD SUGAR, INCREASED TO 100. PT STABLE, NO DISTRESS. WILL CONTINUE TO MONITOR
[2022-08-14] MEDS: ACETAMINOPHEN 325 MG TABLET PO PRN ×2 (13:31→18:43)
--- NOTE | 2022-08-14 13:35 | NUR ---
RN MS NOTES DR. DIAZ INFORMED OF EPISODE OF HYPOGLYCEMIA, NO NEW ORDERS GIVEN AT THIS TIME, PT AWAKE, ALERT AND ORIENTED, NO CHANGE IN LOC NOTED, SKIN WARM TO TOUCH, HEMODIALYSIS ONGOING, WILL CONTINUE TO MONITOR.
[2022-08-14 16:00] VITALS: BP 122/52
--- NOTE | 2022-08-14 17:00 | NUR ---
RN NOTES GLIPIZIDE MEDICATION HELD D/T BLOOD SUGAR 60 BEFORE DINNER. PT HAD EPISODES OF HYPOGLYCEMIA. MD AWARE. BP MEDS HELD. BP 122/52. HAD DIALYSIS TX TODAY. WILL CONTINUE TO MONITOR.
--- NOTE | 2022-08-14 18:45 | NUR ---
MS RN CLOSING NOTES PT RESTING IN BED, AO X4, YI SPEAKING, LYING IN SEMI GIL'S POSITION. PATIENT IN NO COMPLAINTS MADE. NO DISTRESS NOTED. ON ROOM AIR, NO SOB/DIFFICULTY BREATHING. V/S STABLE. IV ACCESS ON RAC 20G SL. ACCUCHECKS DONE. PT TEND TO HAVE HYPOGLYCEMIA. HAD HEMODIALYSIS TX TODAY VIA SUBCLAVIAN PERMACATH ON RIGHT CHEST. SAFETY PRECAUTIONS MAINTAINED. SIDE RAILS UP X2, CALL LIGHT WITHIN REACH. NO S/SX OF DISTRESS. WILL ENDORSE TO NEXT SHIFT.
--- NOTE | 2022-08-14 19:30 | NUR ---
MS RN OPENING NOTES RECEIVED PT RESTING IN BED, AO X4, ARABIC SPEAKING, LYING IN SEMI GIL'S POSITION. DAUGHTER AT BED SIDE. NO PAIN NOTED. NO SOB NOTED. NO DISTRESS NOTED. ON ROOM AIR, NO SOB NOTED. BREATHING EVEN AND UNLABORED. V/S STABLE. IV ACCESS ON RAC 20G SL. NOT INTACT. REMOVED THAT IV SITE. INSERTED NEW IV SITE AT THE RIGHT FOREARM G # 20. INTACT AND FLUSHING WELL. SUBCLAVIAN PERMACATH ON RIGHT CHEST INTACT. NO BLEEDING NOTED. ASKED THE DAUGHTER TO EXPLAIN FOR THE PATIENT TO HOW TO USE THE CALL LIGHT AND IF ANYTHING NEEDED. PATIENT VERBALIZED UNDERSTANDING. ALL SAFETY PRECAUTIONS MAINTAINED. SIDE RAILS UP X2, CALL LIGHT WITHIN REACH. BED SIDE TABLE IN EASY REACH. NO S/SX OF DISTRESS. WILL CONTINUE TO MONITOR CLOSELY.
[2022-08-14 20:00] VITALS: BP 126/60
[2022-08-14] MEDS: TAMSULOSIN 0.4 MG CAP.SR.24H PO SCH (21:13)
[2022-08-14] MEDS: HYDROCODONE/APAP 10/325MG TABLET PO PRN (21:27)
--- NOTE | 2022-08-14 21:27 | NUR ---
RN NOTES PATIENT COMPLAINS OF 7/10 RIGHT KNEE PAIN. PRN NORCO 10/325 MG GIVEN MD ORDER. WILL ASSESS PAIN IN 1 HOUR.
--- NOTE | 2022-08-14 21:30 | NUR ---
RN NOTES 2129 BLOOD SUGAR CHECK WAS 47. OFFERED JUICE , RECHECKED AT 2155 THE RESULT WAS 60. AT 2205 PRN DEXTROSE GIVEN ORDER FOR BLOOD SUGAR OF 60. RECHECKED BLOOD SUGAR AT 2235 THE BLOOD SUGAR RESULT WAS 113.
--- NOTE | 2022-08-15 01:55 | NUR ---
RN NOTES NOTED PATIENT RESTLESS AND FAST BREATHING. CHECKED BLOOD SUGAR AT 0155 NOTED 27. AT 0202 DEXTROSE 5% GIVEN PRN PER ORDER. INFORMED LUBRICATION EQUIPMENT SERVICER SOLE MORALES. NEW ORDER OF DEXTROSE 10 % , 1000 ML ONCE AT RATE OF 90 ML/HR GIVEN. ORDER NOTED AND CARRIED OUT. AT 0239 BLOOD SUGAR CHECKED. BLOOD SUGAR RESULT WAS 76. WILL CONTINUE TO MONITOR PATIENT CLOSELY.
[2022-08-15] MEDS: DEXTROSE 50%-WATER 50 ML DISP.SYRIN IV PRN ×2 (02:02→15:37)
[2022-08-15] MEDS ORDERED: IV 10% DEXTROSE 1,000 ML IV ONE (02:30)
[2022-08-15] MEDS ORDERED: DEXTROSE 10% IN WATER 250 ML BAG IV ONE (02:30)
--- NOTE | 2022-08-15 03:45 | NUR ---
RN NOTES DC GLIPIZIDE PER OPERATIONAL INTELLIGENCE ANALYST SOLE MORALES ORDER FOR HYPOGLYCEMIA AT 0353 AM.
--- NOTE | 2022-08-15 06:43 | NUR ---
MS RN CLOSING NOTES PT RESTING IN BED, AO X4, HEBREW SPEAKING. NO PAIN NOTED. NO SOB NOTED. NO DISTRESS NOTED. ON ROOM AIR, NO SOB NOTED. BREATHING EVEN AND UNLABORED. V/S STABLE. IV SITE AT THE RIGHT FOREARM G # 20. INTACT AND FLUSHING WELL. CURRENTLY DEXTROSE 10 % IS RUNNING AT 90 ML/HR. SUBCLAVIAN PERMACATH ON RIGHT CHEST INTACT. NO BLEEDING NOTED. BLOOD SUGAR AT 0548 NOTED 44 EVEN PATIENT IS ON DEXTROSE HYDRATION. GAVE THE PATIENT 2 ORANGE JUICE. BLOOD SUGAR INCREASED TO 62 AT 0640 AM. INFORMED SOLE MORALES, THE UPHOLSTERY PARTS SORTER, NO NEW ORDER AT THIS TIME. WILL ENDORSE FOR FOLLOW UP. ALL DUE MEDS GIVEN ORDERED. ALL SAFETY PRECAUTIONS MAINTAINED. SIDE RAILS UP X2, CALL LIGHT WITHIN REACH. BED SIDE TABLE IN EASY REACH. NO S/SX OF DISTRESS. WILL ENDORSE FOR MARIA FERNANDA AND CLOSE MONITORING OF THE BLOOD SUGAR.
[2022-08-15 07:00] VITALS: BP 147/76
--- NOTE | 2022-08-15 07:30 | NUR ---
MS RN OPENING NOTES RECEIVED PT RESTING IN BED, AO X4, JAPANESE SPEAKING, LYING IN LOW GIL'S POSITION. PATIENT IN NO DISTRESS, DENIES ANY PAIN. ON ROOM AIR, NO SOB/DIFFICULTY BREATHING. V/S STABLE. IV ACCESS ON RAC 20G SL RUNNING D10% AT 90 ML/HR. SUBCLAVIAN PERMACATH ON RIGHT CHEST. ACCUCHECK PERFORMED BLOOD GLUCOSE OF 65. SKIN INTACT. PAIN MGT NEEDED. WILL MONITOR BLOOD SUGAR CLOSELY. SAFETY PRECAUTIONS MAINTAINED. SIDE RAILS UP X2, CALL LIGHT WITHIN REACH. NO S/SX OF DISTRESS. WILL CONTINUE TO MONITOR.
[2022-08-15] MEDS: BLOOD SUGAR DIAGNOSTIC 1 EACH STRIP IN SCH ×4 (08:12→21:34)
[2022-08-15] MEDS: APIXABAN 2.5 MG TABLET PO SCH ×2 (08:13→20:29)
[2022-08-15] MEDS: ACETAMINOPHEN 325 MG TABLET PO PRN (08:13)
[2022-08-15] MEDS: PANTOPRAZOLE 40 MG TABLET.DR PO SCH (08:13)
[2022-08-15] MEDS: CYANOCOBALAMIN 500 MCG TABLET PO SCH (08:13)
[2022-08-15] MEDS: TIMOLOL 0.5% SOLN OPHTH 5 ML BOTTLE EACHEYE SCH ×2 (08:14→16:41)
[2022-08-15] MEDS: BRIMONIDINE TARTRATE OPHT SOLN 5 ML BOTTLE EACHEYE SCH ×2 (08:14→16:41)
--- NOTE | 2022-08-15 08:18 | NUR ---
RN MS NOTES INFORMED DR. DIAZ OF PT'S BLOOD SUGAR CHECK RESULTS DURING THE NIGHT, CURRENTLY ON IVF D10 AT 90ML/HR, LATEST BS IS 65, PT NOTED TO HAVE TEMP OF 100.6, DR. DIAZ ORDERED TO GIVE GLUCAGON 1MG IM X 1 AND BLOOD CULTURE X 2.
[2022-08-15] MEDS ORDERED: GLUCAGON,HUMAN RECOMBINANT 1 MG/VIAL VIAL IM ONE (08:30)
[2022-08-15] MEDS: ISOSORBIDE DINITRATE (20MG) 20 MG TABLET PO SCH ×2 (09:00→16:42)
[2022-08-15] MEDS: NIFEdipine XL (30MG) 30 MG TAB PO SCH (09:00)
[2022-08-15] MEDS: hydrALAZINE HCL 50 MG TABLET PO SCH ×3 (09:00→16:42)
--- NOTE | 2022-08-15 09:52 | NUR ---
RN NOTES PT BP MEDICATION HELD. ON GOING HEMODIALYSIS. WILL CONTINUE TO MONITOR.
--- NOTE | 2022-08-15 11:12 | NUR ---
RN MS NOTES PT SEEN AND EXAMINED BY DR. JOE MD AWARE OF BLOOD SUGAR RESULTS, NO NEW ORDER GIVEN AT THIS TIME, WILL CONTINUE TO MONITOR.
[2022-08-15] MEDS: HYDROCODONE/APAP 10/325MG TABLET PO PRN (11:36)
[2022-08-15] MEDS ORDERED: BUPIVACAINE 0.25% 75 MG/30 ML VIAL IJ ONE (12:30)
[2022-08-15] MEDS ORDERED: LIDOCAINE 1% INJ 50 ML MDV IJ ONE (12:30)
[2022-08-15] MEDS ORDERED: TRIAMCINOLONE ACETONIDE SUSP 40 MG/ML VIAL IM ONE (12:30)
--- NOTE | 2022-08-15 13:00 | NUR ---
RN MS NOTES PT S/P HEMODIALYSIS, 1 LITER OUTPUT, TOLERATED WELL.
--- NOTE | 2022-08-15 15:31 | NUR ---
RN MS NOTES PT'S BLOOD GLUCOSE 60, DR. DIAZ INFORMED, PER MD,GIVE D50/50 IV, PT IS AWAKE AND ALERT, NO CHANGE IN LOC.
[2022-08-15 15:36] VITALS: BP 141/71
--- NOTE | 2022-08-15 18:34 | NUR ---
MS RN CLOSING NOTES PT RESTING IN BED, AO X4, SWEDISH SPEAKING, LYING IN SEMI GIL'S POSITION. PATIENT DENIES ANY PAIN. NO COMPLAINTS MADE. NO DISTRESS NOTED. ON ROOM AIR, NO SOB/DIFFICULTY BREATHING. V/S STABLE. IV ACCESS ON RAC 20G SL. ACCUCHECKS DONE. PT TEND TO HAVE HYPOGLYCEMIA. HAD HEMODIALYSIS TX TODAY VIA SUBCLAVIAN PERMACATH ON RIGHT CHEST. 1 L OUTPUT. BLOOD CULTURE PENDING. SEEN BY DR. DIAZ. SAFETY PRECAUTIONS MAINTAINED. SIDE RAILS UP X2, CALL LIGHT WITHIN REACH. NO S/SX OF DISTRESS. WILL ENDORSE TO NEXT SHIFT.
[2022-08-15 20:00] VITALS: BP 121/62
[2022-08-15] MEDS: TAMSULOSIN 0.4 MG CAP.SR.24H PO SCH (21:16)
--- NOTE | 2022-08-15 22:06 | NUR ---
MS RN OPENING NOTES RECEIVED PT RESTING IN BED, AO X4, YAKUT SPEAKING, LYING IN SEMI GIL'S POSITION. DAUGHTER STACIA AT BED SIDE. NO PAIN NOTED. NO SOB NOTED. NO DISTRESS NOTED. ON ROOM AIR, TOLERATING WELL, NO SOB NOTED. BREATHING EVEN AND UNLABORED. V/S STABLE. IV SITE AT THE RIGHT FOREARM G # 20. INTACT AND FLUSHING WELL. SUBCLAVIAN PERMACATH ON RIGHT CHEST INTACT. NO BLEEDING NOTED. PATIENT IS AWAKE AND SUGER PER PREVIOUS SHIFT NURSE AROUND 139. DAUGHTER ASKING TO SPEAK WITH THE DR. AND SHE WANTS DR TO CALL PRIOR TO ANY INJECTION OF THE RIGHT KNEE. I ALSO PROVIDED THE DAUGHTER WITH THE EPIC NUMBER AND ASKED HER TO CALL HERSELF TO IF SHE NEEDS TO TALK TO DR. ALL SAFETY PRECAUTIONS MAINTAINED. SIDE RAILS UP X2, CALL LIGHT WITHIN REACH. BED SIDE TABLE IN EASY REACH. NO S/SX OF DISTRESS. BED ALARM ON. WILL CONTINUE TO MONITOR CLOSELY.
--- NOTE | 2022-08-16 06:18 | NUR ---
RN NOTES BLOOD SUGAR CHECKED NOTED 103. NO INSULIN COVERAGE.
[2022-08-16] MEDS: BLOOD SUGAR DIAGNOSTIC 1 EACH STRIP IN SCH ×5 (06:35→22:06)
--- NOTE | 2022-08-16 06:57 | NUR ---
MS RN CLOSING NOTES PT RESTING IN BED, AO X4, [place] SPEAKING, LYING IN SEMI GIL'S POSITION. NO PAIN NOTED. NO SOB NOTED. NO DISTRESS NOTED. ON ROOM AIR, TOLERATING WELL, NO SOB NOTED. BREATHING EVEN AND UNLABORED. V/S STABLE. IV SITE AT THE RIGHT FOREARM G # 20. INTACT AND FLUSHING WELL. SUBCLAVIAN PERMACATH ON RIGHT CHEST INTACT. NO BLEEDING NOTED. PATIENT IS AWAKE ALL DUE MEDS GIVEN ORDERED. ALL SAFETY PRECAUTIONS MAINTAINED. SIDE RAILS UP X2, CALL LIGHT WITHIN REACH. BED SIDE TABLE IN EASY REACH. NO S/SX OF DISTRESS. BED ALARM ON. WILL ENDORSE FOR MARIA FERNANDA.
--- NOTE | 2022-08-16 07:30 | NUR ---
MS RN OPENING NOTE RECEIVED PT AWAKE AND RESTING IN BED, A/O X4, PARAGUAYAN SPEAKING. ON ROOM AIR, TOLERATING WELL, NO SOB NOTED. BREATHING EVEN AND UNLABORED. NO SIGNS OF ACUTE DISTRESS. WITH IV SITE AT THE RIGHT FOREARM G #20, SL. WITH SUBCLAVIAN PERMACATH ON RIGHT CHEST, INTACT. SAFETY MEASURES IMPLEMENTED, BED IN LOW AND LOCKED POSITION, SIDE RAILS UP X2, CALL LIGHT AND TABLE WITHIN REACH; BED ALARM ON. WILL CONTINUE TO MONITOR THE PATIENT.
[2022-08-16 08:23] VITALS: BP 158/73
[2022-08-16] MEDS: NIFEdipine XL (30MG) 30 MG TAB PO SCH (09:04)
[2022-08-16] MEDS: ISOSORBIDE DINITRATE (20MG) 20 MG TABLET PO SCH ×2 (09:05→17:08)
[2022-08-16] MEDS: CYANOCOBALAMIN 500 MCG TABLET PO SCH (09:05)
[2022-08-16] MEDS: hydrALAZINE HCL 50 MG TABLET PO SCH ×3 (09:06→17:09)
[2022-08-16] MEDS: PANTOPRAZOLE 40 MG TABLET.DR PO SCH (09:06)
[2022-08-16] MEDS: BRIMONIDINE TARTRATE OPHT SOLN 5 ML BOTTLE EACHEYE SCH ×2 (09:13→17:33)
[2022-08-16] MEDS: TIMOLOL 0.5% SOLN OPHTH 5 ML BOTTLE EACHEYE SCH ×2 (09:14→17:33)
--- NOTE | 2022-08-16 11:00 | NUR ---
MS RN PATIENT S/P RIGHT KNEE ARTHROCENTESIS WITH SYNOVIAL FLUID ASPIRATION AND STEROID INJECTION BY HOSPITALIST JENNY DIAZ. NO S/SX OF BLEEDING. NO COMPLAINS OF PAIN. TOLERATED WELL.
[2022-08-16] MEDS: APIXABAN 2.5 MG TABLET PO SCH ×2 (12:52→21:18)
[2022-08-16 16:00] VITALS: BP 140/64
--- NOTE | 2022-08-16 17:30 | NUR ---
MS RN PATIENT BLOOD GLUCOSE CHECKED; 210MG/DL. PATIENT ATE ONLY 50% OF DINNER; WILL NOT GIVE INSULIN COVERAGE. WILL ENDORSE ACCORDINGLY.
--- NOTE | 2022-08-16 18:55 | NUR ---
MS RN CLOSING NOTE PT AWAKE AND RESTING IN BED, A/O X4, VIETNAMESE SPEAKING. ON ROOM AIR, TOLERATING WELL, NO SOB NOTED. BREATHING EVEN AND UNLABORED. NO SIGNS OF ACUTE DISTRESS. WITH IV SITE AT THE RIGHT FOREARM G #20, SL. WITH SUBCLAVIAN PERMACATH ON RIGHT CHEST, INTACT. DUE MEDS GIVEN. ALL NEEDS ATTENDED. SAFETY MEASURES IMPLEMENTED, BED IN LOW AND LOCKED POSITION, SIDE RAILS UP X2, CALL LIGHT AND TABLE WITHIN REACH; BED ALARM ON. WILL ENDORSE TO MALE MODEL NURSE FOR CONTINUITY OF CARE.
--- NOTE | 2022-08-16 20:31 | NUR ---
noc rn note received patient in bed awake. daughter at bed side. patient is a/ox3. no s/s of apparent distress in room air. c/o left knee pain 5/ but doesn't want medication. non-pharmacological management done for now. R. subclavian permacath dressing clean, dry, intact. RFA #20g intact on saline lock. needs attended for now. safety in place-- bed in lowest locked position, side rails up X2, call light within reach, bed alarm in place. will continue with the plan of care for patient.
[2022-08-16 20:38] VITALS: BP 132/57
[2022-08-16] MEDS: TAMSULOSIN 0.4 MG CAP.SR.24H PO SCH (21:18)
[2022-08-16] MEDS: INSULIN REGULAR, HUMAN 100 UNIT/ML 3 ML VIAL SQ PRN (22:10)
--- NOTE | 2022-08-16 22:10 | NUR ---
noc rn note d/t patient's known episode of hypoglycemia, I checked blood sugar earlier @2121, blood sugar came out 340. When I re-checked @2199 Patient blood sugar went up to 354. Will use the one gotten @2121 so coverage would be 8 instead of 10 units. per nurse discretion. will monitor.
[2022-08-17 06:19] LABS: BASOPHILS % (AUTO) 0.1 % (0.0-2.0); HEMATOCRIT 34 % (39-51); HEMOGLOBIN 11.1 g/dL (13.5-17.5); LYMPHOCYTES # (AUTO) 0.7 K/uL (0.8-4.8); LYMPHOCYTES % (AUTO) 26.4 % (20.0-44.0); MEAN CORPUSCULAR HGB CONC 33 g/dl (31.0-36.0); MEAN CORPUSCULAR VOLUME 90 fL (80-96); MONOCYTES # (AUTO) 0.3 K/uL (0.1-1.30); MONOCYTES % (AUTO) 9.9 % (2.0-12.0); NEUTROPHILS # (AUTO) 1.8 K/uL (1.8-8.9); NEUTROPHILS % (AUTO) 63.6 % (43.0-81.0); PLATELET COUNT (AUTO) 306 K/uL (150-450); RED BLOOD CELL COUNT(AUTO) 3.79 MIL/uL (4.5-6.0); WHITE BLOOD COUNT (AUTO) 2.8 K/uL (4.3-11.0)
[2022-08-17] MEDS: BLOOD SUGAR DIAGNOSTIC 1 EACH STRIP IN SCH ×2 (06:43→12:16)
[2022-08-17] MEDS: INSULIN REGULAR, HUMAN 100 UNIT/ML 3 ML VIAL SQ PRN ×2 (06:45→12:18)
[2022-08-17 07:11] LABS: CALCIUM, SERUM 8.8 mg/dL (8.5-10.1); CARBON DIOXIDE 23 mmol/L (21-32); CHLORIDE 94 mmol/L (98-107); CREATININE 4.9 mg/dL (0.6-1.3); GLUCOSE 288 mg/dL (74-106); MAGNESIUM 2.4 mg/dL (1.8-2.4); POTASSIUM 4.8 mmol/L (3.5-5.1); SODIUM SERUM 129 mmol/L (136-145); UREA NITROGEN, BLOOD 50 mg/dL (7-18)
--- NOTE | 2022-08-17 07:15 | NUR ---
MS SUPERVISOR WIRE ROPE FABRICATION OPENING NOTE RECEIVED PATIENT AWAKE IN BED, A/Ox3, MALAY SPEAKING, ABLE TO MAKE NEEDS KNOWN. ON ROOM AIR, NO S/S OF RESPIRATORY DISTRESS. IV ACCESS R FA#20G S/L, INTACT AND PATENT. R SUBCLAVIAN PERMA CATH, NO S/S OF BLEEDING, DRESSING IN PLACE. PATIENT ON BEDREST, CAN AMBULATE WITH ASSIST. CONTINENT USES URINAL. SKIN INTACT. SAFETY MEASURES IN PLACE: BED LOCKED AND IN LOWEST POSITION, HOB ELEVATED, CALL LIGHT WITHIN REACH, SIDE RAILS UPx2. WILL CONTINUE TO MONITOR.
--- NOTE | 2022-08-17 07:37 | NUR ---
noc rn closing needs attended. endorsed to SOLITARIO Villalobos for continuity of patient care.
[2022-08-17] MEDS: PANTOPRAZOLE 40 MG TABLET.DR PO SCH (07:43)
[2022-08-17 08:00] VITALS: BP 149/77
[2022-08-17] MEDS: APIXABAN 2.5 MG TABLET PO SCH (08:55)
[2022-08-17] MEDS: CYANOCOBALAMIN 500 MCG TABLET PO SCH (08:55)
[2022-08-17] MEDS: BRIMONIDINE TARTRATE OPHT SOLN 5 ML BOTTLE EACHEYE SCH (08:56)
[2022-08-17] MEDS: TIMOLOL 0.5% SOLN OPHTH 5 ML BOTTLE EACHEYE SCH (08:56)
[2022-08-17] MEDS: ISOSORBIDE DINITRATE (20MG) 20 MG TABLET PO SCH (08:57)
[2022-08-17] MEDS: NIFEdipine XL (30MG) 30 MG TAB PO SCH (08:58)
[2022-08-17] MEDS: hydrALAZINE HCL 50 MG TABLET PO SCH ×2 (08:58→13:00)
--- NOTE | 2022-08-17 09:50 | NUR ---
RN NOTES BLOOD PRESSURE MEDICATION HELD PER HD NURSE. PATIENT WILL BE RECEIVING DIALYSIS LATER ON TODAY.
--- NOTE | 2022-08-17 12:20 | NUR ---
CRANKSHAFT GRINDER NOTE PATIENT STARTED ON DIALYSIS, NOW CONTINUE TO MONITOR.
[2022-08-17] MEDS ORDERED: LIDO700A30 TP (12:48)
--- NOTE | 2022-08-17 13:49 | NUR ---
FIELD APPRAISER NOTE HOLDING HYDRALAZINE DUE TO DIALYSIS PER HD NURSE.
[2022-08-17 16:00] VITALS: BP 174/72
--- NOTE | 2022-08-17 17:35 | NUR ---
ENVIRONMENTAL RESEARCH SCIENTIST DISCHARGE NOTE PATIENT D/C HOME A/OX4. STABLE ON ROOM AIR, NO S/S OF RESPIRATORY DISTRESS NOTED. IV ACCESS WAS REMOVED PRESSURE DRESSING APPLIED NO BLEEDING NOTED. RIGHT CHEST DIALYSIS CATHETER IN PLACE, DRESSING DRY AND CLEAN. ID BAND REMOVED. DISCHARGE INSTRUCTIONS AND HEALTH TEACHING EXPLAINED TO PATIENT. VERBALIZED UNDERSTANDING. ALL BELONGINGS GIVEN TO PATIENT AND ALL FORMS SIGNED AND COPIED. PATIENT LEFT UNIT AT 17:35 ACCOMPANIED BY DAUGHTER AND PROCESSING ENGINEER DEEPALI, VIA W/C. CHARGE NURSE AND MD AWARE ABOUT DISCHARGE
== END 2022-08-17 17:41 | disposition home health service (06) | DRG 553 ==
LOC: ER 07:38 → MED 16:05
PROVIDERS: ADMIT Student in an Organized Health Care Education/Training Program; ATTEND Nurse Practitioner Acute Care
PROC: 5A1D70Z Performance of Urinary Filtration, Intermittent, Less than 6 Hours Per Day (ICD-10-PCS; principal; 2022-08-12)
PROC: 0S9C3ZX Drainage of Right Knee Joint, Percutaneous Approach, Diagnostic (ICD-10-PCS; 2022-08-16)
DX: M17.11 Unilateral primary osteoarthritis, right knee (principal); N18.6 End stage renal disease; D68.59 Other primary thrombophilia; I13.11 Hypertensive heart and chronic kidney disease without heart failure, with stage 5 chronic kidney disease, or end stage renal disease; M25.461 Effusion, right knee; I16.0 Hypertensive urgency; R26.2 Difficulty in walking, not elsewhere classified; M79.604 Pain in right leg; Z99.2 Dependence on renal dialysis; E11.22 Type 2 diabetes mellitus with diabetic chronic kidney disease; E11.40 Type 2 diabetes mellitus with diabetic neuropathy, unspecified; E11.649 Type 2 diabetes mellitus with hypoglycemia without coma; Z20.822 Contact with and (suspected) exposure to COVID-19; E78.5 Hyperlipidemia, unspecified; Z98.890 Other specified postprocedural states; Z88.8 Allergy status to other drugs, medicaments and biological substances; Z79.01 Long term (current) use of anticoagulants; Z79.84 Long term (current) use of oral hypoglycemic drugs; Z79.899 Other long term (current) drug therapy; Z86.718 Personal history of other venous thrombosis and embolism; D63.8 Anemia in other chronic diseases classified elsewhere; M89.8X9 Other specified disorders of bone, unspecified site; I70.0 Atherosclerosis of aorta
CPT/HCPCS: 36415; 73564-TC; 80048-TC; 82962-TC; 83735-TC; 84100-TC; 84443-TC; 84550-TC; 85025-TC; 85652-TC; 86706; 87040-TC; 87081-TC; 87340; 89051-TC; 89060-TC; 90935-TC; 93970-TC; 97112-TC; 97116-TC; 97530-TC; A4223; C9803; G0378; J1610; J1815; J3301; J3490; J7030; J7060

== ENCOUNTER 2023-01-21 11:49 | Inpatient (IN) | payer MEDICARE, OTHER ==
[~2023-01-21] VITALS: Ht 165.1 cm; Wt 85.3 kg
[~2023-01-21 11:49] MED LIST changes: +LIDO700A30 TP
[2023-01-21 12:37] LABS: BASOPHILS % (AUTO) 0.5 % (0.0-2.0); EOSINOPHILS # (AUTO) 0.4 K/uL (0.0-0.7); EOSINOPHILS % (AUTO) 5.3 % (0.0-6.0); HEMATOCRIT 36 % (39-51); HEMOGLOBIN 12.1 g/dL (13.5-17.5); LYMPHOCYTES # (AUTO) 2.1 K/uL (0.8-4.8); LYMPHOCYTES % (AUTO) 27.8 % (20.0-44.0); MEAN CORPUSCULAR HEMOGLOBIN 31 PG (26.0-33.0); MEAN CORPUSCULAR HGB CONC 33 g/dl (31.0-36.0); MEAN CORPUSCULAR VOLUME 92 fL (80-96); MONOCYTES # (AUTO) 0.6 K/uL (0.1-1.30); MONOCYTES % (AUTO) 7.7 % (2.0-12.0); NEUTROPHILS # (AUTO) 4.4 K/uL (1.8-8.9); NEUTROPHILS % (AUTO) 58.7 % (43.0-81.0); PLATELET COUNT (AUTO) 245 K/uL (150-450); RED BLOOD CELL COUNT(AUTO) 3.94 MIL/uL (4.5-6.0); RED CELL DISTRIBUTION WIDTH 14.3 % (11.5-15.0); WHITE BLOOD COUNT (AUTO) 7.5 K/uL (4.3-11.0)
[2023-01-21] MEDS ORDERED: HYDR100T27 PO (12:49)
[2023-01-21] MEDS ORDERED: TIMO5DRO35 EACHEYE (12:49)
[2023-01-21] MEDS ORDERED: BRIM5DRO11 EACHEYE (12:49)
[2023-01-21] MEDS ORDERED: SEVE800T8 PO (12:49)
[2023-01-21] MEDS ORDERED: APIX5TAB PO (12:49)
[2023-01-21] MEDS ORDERED: NIFE-35 PO (12:49)
[2023-01-21] MEDS ORDERED: ISOS20TA8 PO (12:49)
[2023-01-21] MEDS ORDERED: GLIP5TAB13 PO (12:50)
[2023-01-21 13:08] LABS: LACTIC ACID 1.9 mmol/L (0.4-2.0)
[2023-01-21 13:52] LABS: ALANINE AMINOTRANSFERASE 35 U/L (12-78); ALBUMIN 3.3 g/dL (3.4-5.0); ALKALINE PHOSPHATASE 91 U/L (46-116); ASPARTATE AMINOTRANSFERASE 22 U/L (15-37); BILIRUBIN,DIRECT 0.1 mg/dL (0.0-0.2); BILIRUBIN,TOTAL 0.2 mg/dL (0.2-1.0); CALCIUM, SERUM 9.1 mg/dL (8.5-10.1); CARBON DIOXIDE 30 mmol/L (21-32); CHLORIDE 98 mmol/L (98-107); CREATININE 4.9 mg/dL (0.6-1.3); GLUCOSE 131 mg/dL (74-106); POTASSIUM 3.9 mmol/L (3.5-5.1); SODIUM SERUM 137 mmol/L (136-145); TOTAL PROTEIN, SERUM 7.4 g/dL (6.4-8.2); UREA NITROGEN, BLOOD 32 mg/dL (7-18)
[2023-01-21 14:01] LABS: INR 1.05 (0.91-1.10)
[2023-01-21] MEDS ORDERED: BACI/NEOM/POLY B OINT PKT 1 UDPKT PACKET ONE (17:00)
[2023-01-21 17:55] LABS: APPEARANCE,URINE CLEAR (CLEAR); BILIRUBIN,URINE NEGATIVE (NEGATIVE); BLOOD, URINE NEGATIVE Ery/uL (NEGATIVE); COLOR,URINE YELLOW (YELLOW); KETONES,URINE NEGATIVE (NEGATIVE); LEUKOCYTE ESTERASE ,URINE NEGATIVE (NEGATIVE); NITRITE, URINE NEGATIVE (NEGATIVE); PROTEIN,URINE 3+ mg/dl (NEGATIVE); UGLUCOSE 1+ mg/dL (NEGATIVE); UROBILINOGEN,URINE 0.2 EU/dL (0.2)
[2023-01-21 18:46] LABS: ADD URINE CULTURE NO; BACTERIA,URINE None seen /HPF (None Seen); RBC,URINE 0-2 /HPF (0-2); SQUAMOUS EPITHELIAL CELL,UR 0-2 /HPF (None Seen); WBC,URINE 0-2 /HPF (0-3)
[2023-01-21] MEDS ORDERED: Z GUARD REMEDY 4 OZ OINT TP PRN (19:00)
[2023-01-21] MEDS ORDERED: ZOLPIDEM TARTRATE 5 MG TABLET PO PRN (19:00)
[2023-01-21] MEDS ORDERED: MAG HYDROX/AL HYDROX/SIMETH 30 ML UDC PO PRN (19:00)
[2023-01-21] MEDS ORDERED: ONDANSETRON HCL/PF 4 MG/2 ML VIAL IVP PRN (19:00)
[2023-01-21] MEDS ORDERED: MAGNESIUM HYDROXIDE 30 ML UDC PO PRN (19:00)
[2023-01-21] MEDS ORDERED: ACETAMINOPHEN 325 MG TABLET PO PRN (19:00)
[2023-01-21 20:35] VITALS: BP 150/68; TEMP 97.7; O2SAT 97
[2023-01-22 07:00] LABS: BASOPHILS % (AUTO) 0.4 % (0.0-2.0); EOSINOPHILS # (AUTO) 0.5 K/uL (0.0-0.7); EOSINOPHILS % (AUTO) 5.4 % (0.0-6.0); HEMATOCRIT 36 % (39-51); HEMOGLOBIN 12.1 g/dL (13.5-17.5); LYMPHOCYTES # (AUTO) 2.6 K/uL (0.8-4.8); LYMPHOCYTES % (AUTO) 29.9 % (20.0-44.0); MEAN CORPUSCULAR HEMOGLOBIN 31 PG (26.0-33.0); MEAN CORPUSCULAR HGB CONC 33 g/dl (31.0-36.0); MEAN CORPUSCULAR VOLUME 92 fL (80-96); MONOCYTES # (AUTO) 0.7 K/uL (0.1-1.30); NEUTROPHILS # (AUTO) 4.9 K/uL (1.8-8.9); NEUTROPHILS % (AUTO) 56.3 % (43.0-81.0); PLATELET COUNT (AUTO) 253 K/uL (150-450); RED BLOOD CELL COUNT(AUTO) 3.95 MIL/uL (4.5-6.0); RED CELL DISTRIBUTION WIDTH 13.6 % (11.5-15.0); WHITE BLOOD COUNT (AUTO) 8.8 K/uL (4.3-11.0)
[2023-01-22 07:25] LABS: CALCIUM, SERUM 9.3 mg/dL (8.5-10.1); CARBON DIOXIDE 28 mmol/L (21-32); CHLORIDE 99 mmol/L (98-107); CREATININE 6.1 mg/dL (0.6-1.3); GLUCOSE 106 mg/dL (74-106); MAGNESIUM 2.2 mg/dL (1.8-2.4); POTASSIUM 4.2 mmol/L (3.5-5.1); SODIUM SERUM 138 mmol/L (136-145); UREA NITROGEN, BLOOD 44 mg/dL (7-18)
[2023-01-22 07:30] VITALS: BP 119/58; TEMP 98.2; O2SAT 98
[2023-01-22 08:09] LABS: THYROID STIMULATING HORMONE 2.387 uIU/mL (0.358-3.74)
[2023-01-22] MEDS: PANTOPRAZOLE 40 MG TABLET.DR PO SCH (08:44)
[2023-01-22] MEDS: SEVELAMER CARBONATE 800 MG TABLET PO SCH ×2 (13:15→17:49)
[2023-01-22 16:00] VITALS: BP 124/47; TEMP 98.1; O2SAT 97
[2023-01-22] MEDS: NIFEdipine XL (30MG) 30 MG TAB PO SCH (17:00)
[2023-01-22] MEDS: ISOSORBIDE DINITRATE (20MG) 20 MG TABLET PO SCH (17:00)
[2023-01-22] MEDS: hydrALAZINE HCL 50 MG TABLET PO SCH (17:00)
[2023-01-22] MEDS: TIMOLOL 0.25% SOL OPHTH 10 ML BOTTLE EACHEYE SCH (17:49)
[2023-01-22] MEDS: BRIMONIDINE TARTRATE OPHT SOLN 5 ML BOTTLE EACHEYE SCH (17:49)
[2023-01-22] MEDS: APIXABAN 5 MG TABLET PO SCH (17:49)
[2023-01-22 20:00] VITALS: BP 125/60; TEMP 98.6; O2SAT 96
[2023-01-22] MEDS ORDERED: AMIODARONE 450 MG in IV D5W 241 ML IV PRN ×2 (20:30→22:10)
[2023-01-22] MEDS ORDERED: AMIODARONE 150 MG in IV D5W 100 ML IV ONE ×2 (20:30→22:00)
[2023-01-23] VITALS: BP 135/70; TEMP 97.9; O2SAT 96
[2023-01-23 04:00] VITALS: BP 132/63; TEMP 97.9; O2SAT 96
[2023-01-23] MEDS: PANTOPRAZOLE 40 MG TABLET.DR PO SCH (08:32)
[2023-01-23] MEDS: BRIMONIDINE TARTRATE OPHT SOLN 5 ML BOTTLE EACHEYE SCH ×2 (08:33→18:07)
[2023-01-23] MEDS: SEVELAMER CARBONATE 800 MG TABLET PO SCH ×3 (08:33→18:08)
[2023-01-23] MEDS: TIMOLOL 0.25% SOL OPHTH 10 ML BOTTLE EACHEYE SCH ×2 (08:34→18:07)
[2023-01-23 08:48] LABS: BASOPHILS % (AUTO) 0.3 % (0.0-2.0); EOSINOPHILS # (AUTO) 0.6 K/uL (0.0-0.7); HEMATOCRIT 35 % (39-51); HEMOGLOBIN 11.8 g/dL (13.5-17.5); LYMPHOCYTES % (AUTO) 31.7 % (20.0-44.0); MEAN CORPUSCULAR HEMOGLOBIN 31 PG (26.0-33.0); MEAN CORPUSCULAR HGB CONC 34 g/dl (31.0-36.0); MEAN CORPUSCULAR VOLUME 92 fL (80-96); MONOCYTES # (AUTO) 0.5 K/uL (0.1-1.30); MONOCYTES % (AUTO) 5.5 % (2.0-12.0); NEUTROPHILS # (AUTO) 5.4 K/uL (1.8-8.9); NEUTROPHILS % (AUTO) 56.5 % (43.0-81.0); PLATELET COUNT (AUTO) 251 K/uL (150-450); RED BLOOD CELL COUNT(AUTO) 3.85 MIL/uL (4.5-6.0); WHITE BLOOD COUNT (AUTO) 9.5 K/uL (4.3-11.0)
[2023-01-23 08:56] LABS: CALCIUM, SERUM 9.2 mg/dL (8.5-10.1); CARBON DIOXIDE 26 mmol/L (21-32); CHLORIDE 98 mmol/L (98-107); CREATININE 7.2 mg/dL (0.6-1.3); GLUCOSE 151 mg/dL (74-106); POTASSIUM 4.1 mmol/L (3.5-5.1); SODIUM SERUM 135 mmol/L (136-145); UREA NITROGEN, BLOOD 57 mg/dL (7-18)
[2023-01-23] MEDS: hydrALAZINE HCL 50 MG TABLET PO SCH ×2 (09:00→18:08)
[2023-01-23] MEDS: ISOSORBIDE DINITRATE (20MG) 20 MG TABLET PO SCH ×2 (09:00→17:00)
[2023-01-23] MEDS: NIFEdipine XL (30MG) 30 MG TAB PO SCH ×2 (09:00→17:00)
[2023-01-23 09:02] LABS: ALANINE AMINOTRANSFERASE 26 U/L (12-78); ALKALINE PHOSPHATASE 66 U/L (46-116); ASPARTATE AMINOTRANSFERASE 16 U/L (15-37); BILIRUBIN,TOTAL 0.3 mg/dL (0.2-1.0)
[2023-01-23] MEDS: APIXABAN 5 MG TABLET PO SCH ×2 (09:19→17:00)
[2023-01-23] MEDS ORDERED: HEPARIN SODIUM, PORCINE 1000 UNIT/1 ML VIAL IV STA (13:35)
[2023-01-23 20:00] VITALS: BP 114/48; TEMP 98.4; O2SAT 98
[2023-01-24] VITALS: BP 121/47; TEMP 98.3; O2SAT 97
[2023-01-24 04:00] VITALS: BP 125/66; TEMP 98.6; O2SAT 98
[2023-01-24 07:25] LABS: ALANINE AMINOTRANSFERASE 25 U/L (12-78); ALBUMIN 3.1 g/dL (3.4-5.0); ALKALINE PHOSPHATASE 70 U/L (46-116); ASPARTATE AMINOTRANSFERASE 14 U/L (15-37); BILIRUBIN,TOTAL 0.2 mg/dL (0.2-1.0); CALCIUM, SERUM 9.1 mg/dL (8.5-10.1); CARBON DIOXIDE 24 mmol/L (21-32); CREATININE 6.9 mg/dL (0.6-1.3); GLUCOSE 111 mg/dL (74-106); UREA NITROGEN, BLOOD 54 mg/dL (7-18)
[2023-01-24] MEDS: PANTOPRAZOLE 40 MG TABLET.DR PO SCH (07:58)
[2023-01-24] MEDS: SEVELAMER CARBONATE 800 MG TABLET PO SCH ×3 (07:58→17:06)
[2023-01-24 08:00] VITALS: BP 132/66; TEMP 98.4; O2SAT 95
[2023-01-24] MEDS: TIMOLOL 0.25% SOL OPHTH 10 ML BOTTLE EACHEYE SCH ×2 (08:02→16:20)
[2023-01-24] MEDS: BRIMONIDINE TARTRATE OPHT SOLN 5 ML BOTTLE EACHEYE SCH ×2 (08:02→16:20)
[2023-01-24 08:11] LABS: CHLORIDE 95 mmol/L (98-107); POTASSIUM 4.6 mmol/L (3.5-5.1); SODIUM SERUM 131 mmol/L (136-145)
[2023-01-24] MEDS: ISOSORBIDE DINITRATE (20MG) 20 MG TABLET PO SCH ×2 (09:00→16:22)
[2023-01-24] MEDS: NIFEdipine XL (30MG) 30 MG TAB PO SCH ×2 (09:00→16:22)
[2023-01-24] MEDS: hydrALAZINE HCL 50 MG TABLET PO SCH ×2 (09:18→16:20)
[2023-01-24] MEDS: APIXABAN 5 MG TABLET PO SCH ×2 (09:32→16:22)
[2023-01-24 12:00] VITALS: BP 109/90; TEMP 97.9; O2SAT 97
[2023-01-24 16:00] VITALS: BP 142/66; TEMP 97.6; O2SAT 95
[2023-01-24 21:00] VITALS: BP 110/64; TEMP 97.8; O2SAT 96
[2023-01-25] VITALS: BP 112/68; TEMP 97.9; O2SAT 98
[2023-01-25] MEDS ORDERED: HEPARIN SODIUM, PORCINE 1000 UNIT/1 ML VIAL IV ONE
[2023-01-25 04:00] VITALS: BP 108/66; TEMP 97.7; O2SAT 98
[2023-01-25 07:25] LABS: BASOPHILS % (AUTO) 0.4 % (0.0-2.0); EOSINOPHILS # (AUTO) 0.5 K/uL (0.0-0.7); EOSINOPHILS % (AUTO) 5.2 % (0.0-6.0); HEMATOCRIT 34 % (39-51); HEMOGLOBIN 11.3 g/dL (13.5-17.5); LYMPHOCYTES % (AUTO) 28.2 % (20.0-44.0); MEAN CORPUSCULAR HEMOGLOBIN 30 PG (26.0-33.0); MEAN CORPUSCULAR HGB CONC 33 g/dl (31.0-36.0); MEAN CORPUSCULAR VOLUME 91 fL (80-96); MONOCYTES # (AUTO) 0.9 K/uL (0.1-1.30); MONOCYTES % (AUTO) 8.5 % (2.0-12.0); NEUTROPHILS # (AUTO) 6.1 K/uL (1.8-8.9); NEUTROPHILS % (AUTO) 57.7 % (43.0-81.0); PLATELET COUNT (AUTO) 247 K/uL (150-450); RED BLOOD CELL COUNT(AUTO) 3.74 MIL/uL (4.5-6.0); RED CELL DISTRIBUTION WIDTH 13.7 % (11.5-15.0); WHITE BLOOD COUNT (AUTO) 10.6 K/uL (4.3-11.0)
[2023-01-25 08:00] VITALS: BP 128/59; TEMP 99.1; O2SAT 95
[2023-01-25] MEDS: SEVELAMER CARBONATE 800 MG TABLET PO SCH ×2 (08:24→12:03)
[2023-01-25] MEDS: BRIMONIDINE TARTRATE OPHT SOLN 5 ML BOTTLE EACHEYE SCH ×2 (08:25→17:51)
[2023-01-25] MEDS: APIXABAN 5 MG TABLET PO SCH ×2 (08:25→17:00)
[2023-01-25] MEDS: TIMOLOL 0.25% SOL OPHTH 10 ML BOTTLE EACHEYE SCH ×2 (08:26→17:51)
[2023-01-25] MEDS: PANTOPRAZOLE 40 MG TABLET.DR PO SCH (08:27)
[2023-01-25] MEDS: ISOSORBIDE DINITRATE (20MG) 20 MG TABLET PO SCH ×2 (09:00→17:00)
[2023-01-25] MEDS: NIFEdipine XL (30MG) 30 MG TAB PO SCH ×2 (09:00→17:00)
[2023-01-25] MEDS: hydrALAZINE HCL 50 MG TABLET PO SCH ×2 (09:00→17:00)
[2023-01-25 09:06] LABS: ALANINE AMINOTRANSFERASE 21 U/L (12-78); ALBUMIN 3.1 g/dL (3.4-5.0); ALKALINE PHOSPHATASE 68 U/L (46-116); ASPARTATE AMINOTRANSFERASE 11 U/L (15-37); BILIRUBIN,TOTAL 0.3 mg/dL (0.2-1.0); CALCIUM, SERUM 9.2 mg/dL (8.5-10.1); CARBON DIOXIDE 24 mmol/L (21-32); GLUCOSE 100 mg/dL (74-106); MAGNESIUM 2.2 mg/dL (1.8-2.4); PHOSPHORUS 5.3 mg/dL (2.5-4.9); TOTAL PROTEIN, SERUM 6.9 g/dL (6.4-8.2); UREA NITROGEN, BLOOD 66 mg/dL (7-18)
[2023-01-25 09:54] LABS: CHLORIDE 99 mmol/L (98-107); POTASSIUM 4.3 mmol/L (3.5-5.1); SODIUM SERUM 136 mmol/L (136-145)
[2023-01-25] MEDS ORDERED: HEPARIN SODIUM, PORCINE 1000 UNIT/1 ML VIAL IV PRN (12:00)
[2023-01-25 17:00] VITALS: BP 132/59
== END 2023-01-25 18:25 | disposition home health service (06) | DRG 682 ==
LOC: ER 11:53 → MED 20:16 → TELE 21:36 → TELE-TD 01-22 21:19 → TELE1 01-23 09:14
PROVIDERS: ADMIT Student in an Organized Health Care Education/Training Program; ATTEND Internal Medicine
PROC: 5A1D70Z Performance of Urinary Filtration, Intermittent, Less than 6 Hours Per Day (ICD-10-PCS; principal; 2023-01-23)
DX: I12.0 Hypertensive chronic kidney disease with stage 5 chronic kidney disease or end stage renal disease (principal); N18.6 End stage renal disease; E44.1 Mild protein-calorie malnutrition; E87.1 Hypo-osmolality and hyponatremia; R25.1 Tremor, unspecified; D29.1 Benign neoplasm of prostate; E11.22 Type 2 diabetes mellitus with diabetic chronic kidney disease; D64.9 Anemia, unspecified; I48.91 Unspecified atrial fibrillation; Z79.01 Long term (current) use of anticoagulants; Z79.84 Long term (current) use of oral hypoglycemic drugs; Z68.31 Body mass index [BMI] 31.0-31.9, adult; E83.9 Disorder of mineral metabolism, unspecified; M89.8X9 Other specified disorders of bone, unspecified site; Z79.82 Long term (current) use of aspirin; Z99.2 Dependence on renal dialysis
CPT/HCPCS: 36415; 70450-TC; 71045-TC; 80048-TC; 80053-TC; 80076-TC; 81001; 83605-TC; 83735-TC; 84100-TC; 84443-TC; 84484-TC; 85025-TC; 85730-TC; 87040-TC; 87081-TC; 87086-TC; 93307-TC; 97110-TC; 97112-TC; 97116-TC; 97530-TC; G0378; J0282; J1644; J7030; J7060

== ENCOUNTER 2023-01-31 09:40 | Outpatient (CLI) | payer MEDICARE, OTHER ==
[~2023-01-31 09:40] MED LIST changes: +BRIM5DRO11 EACHEYE; -BRIM5DRO3 EACHEYE; +ISOS20TA8 PO; -ISOS40TA19 PO; -LIDO700A30 TP; -MECO10005 PO; +NIFE-35 PO; -NIFE30TA91 PO; +SEVE800T8 PO; -TAMS-12 PO; -TIMO5DRO18 EACHEYE; +TIMO5DRO35 EACHEYE
== END 2023-01-31 23:59 | disposition home or self-care (01) ==
LOC: MSC 09:40
PROVIDERS: ATTEND Internal Medicine
DX: R25.1 Tremor, unspecified (principal); L03.113 Cellulitis of right upper limb; I80.8 Phlebitis and thrombophlebitis of other sites; R53.83 Other fatigue; I12.0 Hypertensive chronic kidney disease with stage 5 chronic kidney disease or end stage renal disease; E11.22 Type 2 diabetes mellitus with diabetic chronic kidney disease; N18.6 End stage renal disease; D63.1 Anemia in chronic kidney disease; Z99.2 Dependence on renal dialysis; Z79.4 Long term (current) use of insulin; I48.91 Unspecified atrial fibrillation; Z79.01 Long term (current) use of anticoagulants; E83.9 Disorder of mineral metabolism, unspecified; M89.9 Disorder of bone, unspecified; R53.81 Other malaise; H40.9 Unspecified glaucoma